=== PATIENT | female | born 1955 | race Caucasian/White ===

== ENCOUNTER 2018-06-17 14:56 | Outpatient (REF) | payer MEDICARE, BC, SELFPAY ==
[2018-06-17 20:30] LABS: Abs Immature Grans 0.01 k/cumm (0.0-0.09); Absolute Basophil Count 0.03 k/cumm (0.0-0.2); Absolute Eosinophil Count 0.06 k/cumm (0.0-0.7); Absolute Lymphocyte Count 1.79 k/cumm (1.2-3.4); Absolute Monocyte Count 0.31 k/cumm (0.11-0.7); Absolute Neutrophil Count 3.34 k/cumm (1.2-6.7); Basophils % 0.5; Eosinophils % 1.1; HCT 40.4 % (36.0-46.0); HGB 12.9 g/dL (12.0-15.5); Immature Grans % 0.2; Lymphocytes % 32.3; Mean Corp. HGB Concentration 31.9 g/dL (32.0-36.0); Mean Corpuscular Hemoglobin 28.1 pg (27.0-33.0); Mean Platelet Volume 12.6 fL (8.0-11.0); Monocytes % 5.6; Neutrophils % 60.3; Platelet Count 243 x1000/uL (130-400); RBC 4.59 m/cumm (4.00-5.20); RBC Distribution Width 14.7 % (11.7-14.6); White Blood Cell Count 5.54 k/cumm (4.4-10.8)
[2018-06-17 20:54] LABS: ALT 26 U/L (12-78); AST 19 U/L (15-37); Albumin 3.8 g/dL (3.4-5.0); Alkaline Phosphatase 103 U/L (46-116); Anion Gap 10.7 mmol/L (3-11); BUN 19 mg/dL (7-18); Bilirubin, Total 0.2 mg/dL (0.2-1.0); CO2 28.3 mmol/L (21.0-32.0); CREATININE 1.03 mg/dL (0.55-1.02); Calcium 8.9 mg/dL (8.5-10.1); Chloride 102 mmol/L (98-107); Estimated GFR 53.95 (mL/min/1.73m2); Glucose 104 mg/dL (70-100); Potassium 4.1 mmol/L (3.5-5.1); Sodium 141 mmol/L (136-145); Total Protein 7.2 g/dL (6.4-8.2)
[2018-06-18 06:02] LABS: Lipase 169 U/L (73-393)
[2018-06-19 10:54] LABS: Hepatitis C Ab w Rflx HCV PCR Negative (NEGAT)
== END 2018-06-17 15:16 ==
LOC: NCHCN 14:56
PROVIDERS: PCP Internal Medicine; Visit Provider Internal Medicine
DX: R10.9 Unspecified abdominal pain (principal); Z11.59 Encounter for screening for other viral diseases
CPT/HCPCS: 80053; 83690; 86803; 85025

== ENCOUNTER 2018-10-29 11:08 | Emergency (ER) | payer MEDICARE, BC, SELFPAY ==
--- NOTE | 2018-10-29 11:15 | ED.GENADUL_ITS ---
Discharge Plan Disposition Patient Disposition: HOME Condition: Stable Discharge Details Chief Complaint: Abd Prob Clinical Impression: Chronic abdominal pain, Bladder wall thickening, Esophageal thickening Primary Care Provider: Bal George ED Provider: Essie Jose Home Meds and New Rx's Prescriptions: Continued lisinopril-hydrochlorothiazide [Zestoretic] 1 EACH tablet 1 tab-cap PO DAILY RF: 0 aspirin 325 MG tablet 325 mg PO DAILY RF: 0 simvastatin [Zocor] 5 MG tablet 5 mg PO HS RF: 0 Daily Multiple 1 EACH tablet 1 tab-cap PO DAILY RF: 0 lorazepam 0.5 MG tablet 0.5 mg PO PRN PRNRF: 0 metoprolol succinate 25 MG tablet extended release 24 hr 25 mg PO DAILY RF: 0 meclizine [Antivert] 25 MG tablet 25 mg PO PRN PRNRF: 0 nitroglycerin [Nitrostat] 0.4 MG tablet, sublingual 1 tab Sublingual . DIRECTED PRNRF: 0 acetaminophen [Masophen] 500 MG tablet 500 mg PO Q4H PRN PRNQty: 30 RF: 0 Discharge Instructions Instructions: Chronic Pain (ED), Abdominal Pain (ED) Additional Instructions: You were found to have esophageal thickening and bladder wall thickening on your cat scan. These findings may be and are likely incidental and not related to your abdominal pain. You will receive a call from general surgery regarding a follow up appointment for endoscopy for further evaluation of your esophagus. You will also receive a call from care management or urology regarding a follow up appointment with urology for further evaluation of thickening noted in your bladder wall. Return immediately to the emergency department with any worsening or new concerning symptoms. 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 Since her cholecystectomy in 2018 who presents with worsening abdominal pain over the past 10 days. Admits to nausea but denies any fever, vomiting or diarrhea. No chest pain or shortness of breath. Blood pressure mildly hypertensive, otherwise vitals within normal limits. Afebrile. Patient appears nontoxic and in no acute distress. Patient is tearful and appears very anxious. She has significant tenderness to palpation with even light palpation otherwise her abdomen is soft without rigidity or guarding. Will place an IV, bolus IV fluids, labs, urinalysis, EKG, CT abdomen and pelvis, morphine as well as Zofran. EKG notes a rate of 79, sinus, no acute ST findings. 1330 --labs and imaging reviewed. Normal white blood cell count, electrolytes, bilirubin, troponin and lipase. Urinalysis 3-5 WBCs with trace leukocytes but appears consistent with contamination. Dr. Joyce called regarding CT and stated that patient was noted to have dilated hepatic ducts, and increased size of common bile duct, but in the setting of a normal bilirubin may not be anything acute. Patient was also noted to have wall thickness of her distal esophagus which may require further investigation with endoscopy, as well as bladder thickness. Patient states her pain is much better. Discussed CT findings with general surgery Dr. Talbot and he will evaluate CT and come and evaluate patient. 1520 --discussed with general surgery who evaluated CT and patient. There does not appear to be any acute infectious findings on the CT and no acute recommendations. Will follow up with patient in the office regarding further evaluation of incidental finding of esophagus with possible endoscopy. Patient also placed on urology and care management list to arrange for follow-up appointment for further evaluation of bladder wall thickness noted. Patient instructed to return to the ER with any concerns. Medical Records Medical records reviewed: Yes I reviewed the patient's medical records. Lab Data Lab results reviewed: Yes I reviewed the patient's lab results. Laboratory Tests Range/Units 10/29/18 10/29/18 10/29/18 11:50 11:50 12:40 WBC (4.4-10.8) k/cumm 7.27 RBC (4.00-5.20) m/cumm 4.91 Hgb (12.0-15.5) g/dL 13.8 Hct (36.0-46.0) % 42.7 MCV (80-95) fL 87.0 MCH (27.0-33.0) pg 28.1 MCHC (32.0-36.0) g/dL 32.3 RDW (11.7-14.6) % 14.9 H Plt Count (130-400) x1000/uL 234 MPV (8.0-11.0) fL 11.6 H Immature Gran % 0.0 Neutrophils % 61.1 Lymphocytes % 31.5 Monocytes % 5.5 Eosinophils % 1.2 Basophils % 0.7 Absolute Neutrophils (1.2-6.7) k/cumm 4.44 Absolute Lymphocytes (1.2-3.4) k/cumm 2.29 Absolute Monocytes (0.11-0.7) k/cumm 0.40 Absolute Eosinophils (0.0-0.7) k/cumm 0.09 Absolute Basophils (0.0-0.2) k/cumm 0.05 Sodium (136-145) mmol/L 140 Potassium (3.5-5.1) mmol/L 3.6 Chloride (98-107) mmol/L 100 Carbon Dioxide (21.0-32.0) mmol/L 29.7 Anion Gap (3-11) mmol/L 10.3 BUN (7-18) mg/dL 22 H Creatinine (0.55-1.02) mg/dL 0.99 Estimated GFR/1.73 m2 (mL/min/1.73m2) 56.47 Glucose (70-100) mg/dL 100 Calcium (8.5-10.1) mg/dL 9.2 Magnesium (1.8-2.4) mg/dL 2.2 Total Bilirubin (0.2-1.0) mg/dL 0.3 AST (15-37) U/L 21 ALT (12-78) U/L 27 Alkaline Phosphatase (46-116) U/L 106 Troponin I (0.00-0.06) ng/mL < 0.02 Total Protein (6.4-8.2) g/dL 8.3 H Albumin (3.4-5.0) g/dL 3.9 Lipase (73-393) U/L 156 Urine Color (Yellow) Yellow Urine Clarity Clear Urine pH (5-8) 7.0 Ur Specific [place] (1.005-1.025) 1.010 Urine Protein (Negative) mg/dL Negative Urine Ketones (Negative) mg/dL Negative Urine Blood (Negative) Negative Urine Nitrite (Negative) Negative Urine Bilirubin (Negative) Negative Urine Urobilinogen (Up TO 0.2) EU/dL 0.2 Ur Leukocyte Esterase (Negative) Trace H Urine RBC (0-2) Negative Urine WBC (0-5) HPF 3-5 Ur Epithelial Cells (Negative) HPF Moderate Urine Crystals (Negative) HPF Negative Urine Bacteria (Negative) HPF Rare Urine Casts (Negative) LPF Negative Urine Mucus (Negative) Negative Urine Other (Negative) Few renal Ur Culture Indicated? No/sq. contamination Urine Glucose (Negative) mg/dL Negative ECG Data Attestation: I personally reviewed and interpreted this ECG (s) as follows: Interpretation: 1207 --79. Sinus. No acute ST elevation or depression. QTc 422. QRS 82. HPI General Mode of arrival: ambulatory . Date/Time Provider Initiated Documentation: 10/29/18 11:09 . Limitations to Documentation: no limitations . Information obtained by: patient . HPI Narrative: Patient is a 63-year-old female with a history of fibromyalgia, anxiety, LA with one cardiac stent, and cholecystectomy in March 2018 who presents with chronic epigastric and right lower quadrant abdominal pain status post her cholecystectomy. Patient states she continued to have pain after her surgery and followed up with surgery Dr. Rosenthal who was told that she likely had nerve damage. Patient states this is because constant pain since then. She states over the past 10 days the pain has been more intense, sharp and pressure-like and feels like knots . She states she is also had some nausea but denies any vomiting, diarrhea, fever, urinary s ymptoms, chest pain or shortness of breath. She took some Tylenol without relief. She states her last bowel movement was today and denies any rectal bleeding. She states she has been eating less than usual over the past 2-3 days. She states her pain is currently 8/10. Related Data Home Medications Medication Instructions Recorded Confirmed Daily Multiple 1 tab-cap PO DAILY tab-cap 02/03/13 10/29/18 aspirin 325 mg PO DAILY tab-cap 02/03/13 10/29/18 lisinopril-hydrochlorothiazide 1 tab-cap PO DAILY tab-cap 02/03/13 10/29/18 [Zestoretic] simvastatin [Zocor] 5 mg PO HS tab-cap 02/03/13 10/29/18 lorazepam 0.5 mg PO PRN PRN 02/17/13 10/29/18 metoprolol succinate 25 mg PO DAILY 02/17/13 10/29/18 meclizine [Antivert] 25 mg PO PRN PRN 05/21/15 10/29/18 nitroglycerin [Nitrostat] 1 tab SUBLINGUAL . DIRECTED PRN 04/09/18 10/29/18 acetaminophen [Masophen] 500 mg PO Q4H PRN PRN #30 tablet 04/18/18 10/29/18 Previous Rx's Medication Instructions Recorded acetaminophen [Masophen] 500 mg PO Q4H PRN PRN #30 tablet 04/18/18 Allergies Allergy/AdvReac Type Severity Reaction Status Date / Time shellfish derived Allergy Severe Anaphylaxsi Unverified 10/29/18 11:21 s strawberry Allergy Severe Anaphalaxsi Unverified 10/29/18 11:21 s adhesive Allergy Intermediate Skin Rash Unverified 10/29/18 11:21 lanolin Allergy Intermediate Skin Rash Unverified 10/29/18 11:21 benzoyl peroxide Allergy Mild Rash Unverified 10/29/18 11:21 clobetasol Allergy Unknown Unverified 10/29/18 11:21 aspartame AdvReac Mild Visual Unverified 10/29/18 11:21 Disturbances nitrofurantoin AdvReac Mild Unverified 10/29/18 11:21 polymyxin B AdvReac Mild Unverified 10/29/18 11:21 triamcinolone AdvReac Mild Unverified 10/29/18 11:21 wool Allergy Severe Hives Uncoded 10/29/18 11:21 Mushrooms AdvReac Mild Nausea Uncoded 10/29/18 11:21 Review of Systems Review of Systems All systems reviewed & are unremarkable except as noted in HPI and below Constitutional Reports as per HPI, Denies chills and Denies fever(s) Eyes Denies blurry vision ENT Denies dizziness, Denies sore throat and Denies throat swelling Cardiovascular Denies chest pain and Denies dyspnea Respiratory Denies cough and Denies dyspnea Gastrointestinal Reports abdominal pain, Denies diarrhea, Reports nausea and Denies vomiting Genitourinary Denies hematuria and Denies dysuria Musculoskeletal Denies back pain and Denies numbness Integumentary/Breasts Denies lesions and Denies rash Neurologic Denies dizziness, Denies focal weakness and Denies numbness Allergic/Immunologic Denies throat swelling [facility] Medical History Fibromyalgia (Acute) Hyperlipemia (Acute) Anxiety (Chronic) Coronary artery disease (Chronic) GERD (gastroesophageal reflux disease) (Chronic) HTN (hypertension) (Chronic) Myocardial infarction (Chronic) Surgical History History of coronary artery stent placement (Chronic) Cholecystectomy (04/16/18) Social History Smoking/Tobacco Use Status: Never alcohol intake: never substance use type: does not use Exam Const General: cooperative, healthy appearing and in distress (uncomfortable in pain, holding abdomen) mild HENMT Head: normal to inspection Face and sinus: normal facial exam Eyes General: appearance normal, both eyes and all related structures EOM: EOM intact bilaterally Neck Neck: normal visual inspection and No submandibular swelling Lymphatic: no lymphadenopathy noted Chest Chest: normal inspection of the chest and no tenderness Resp Effort & Inspection: normal respiratory effort and able to speak in complete sentences Auscultation: clear to auscultation bilaterally Cardio Rate: regular rate Rhythm: regular rhythm GI Inspection: normal to inspection Palpation: soft, not firm, not rigid and tender (diffuse, worse in upper abdomen and RLQ) Auscultation: normal bowel sounds Skin General skin exam: no rashes or lesions noted Neuro General: alert, awake and oriented x3 Cognition: normal cognition Speech: speech normal Motor: muscle tone normal throughout Sensory Exam: no sensory deficits noted Extrem General: normal to inspection, full ROM and no edema Psych Appearance: grossly normal Mental Status: mental status grossly normal Speech and Movement: speech and movement normal Affect: normal affect
[2018-10-29 11:17] VITALS: BP 158/78; PULSE 82; RESP 16; TEMP 37; O2SAT 100
[2018-10-29] MEDS: Normal Saline 1,000 ML 1000 ML IV (11:55)
[2018-10-29] MEDS: Ondansetron 4 MG/2 ML VIAL IVP (11:55)
[2018-10-29 11:56] LABS: Absolute Basophil Count 0.05 k/cumm (0.0-0.2); Absolute Eosinophil Count 0.09 k/cumm (0.0-0.7); Absolute Lymphocyte Count 2.29 k/cumm (1.2-3.4); Absolute Neutrophil Count 4.44 k/cumm (1.2-6.7); Basophils % 0.7; Eosinophils % 1.2; HCT 42.7 % (36.0-46.0); HGB 13.8 g/dL (12.0-15.5); Lymphocytes % 31.5; Mean Corp. HGB Concentration 32.3 g/dL (32.0-36.0); Mean Corpuscular Hemoglobin 28.1 pg (27.0-33.0); Mean Platelet Volume 11.6 fL (8.0-11.0); Monocytes % 5.5; Neutrophils % 61.1; Platelet Count 234 x1000/uL (130-400); RBC 4.91 m/cumm (4.00-5.20); RBC Distribution Width 14.9 % (11.7-14.6); White Blood Cell Count 7.27 k/cumm (4.4-10.8)
[2018-10-29 12:13] LABS: ALT 27 U/L (12-78); AST 21 U/L (15-37); Albumin 3.9 g/dL (3.4-5.0); Alkaline Phosphatase 106 U/L (46-116); Anion Gap 10.3 mmol/L (3-11); BUN 22 mg/dL (7-18); Bilirubin, Total 0.3 mg/dL (0.2-1.0); CO2 29.7 mmol/L (21.0-32.0); CREATININE 0.99 mg/dL (0.55-1.02); Calcium 9.2 mg/dL (8.5-10.1); Chloride 100 mmol/L (98-107); Estimated GFR 56.47 (mL/min/1.73m2); Glucose 100 mg/dL (70-100); Lipase 156 U/L (73-393); Magnesium 2.2 mg/dL (1.8-2.4); Potassium 3.6 mmol/L (3.5-5.1); Sodium 140 mmol/L (136-145); Total Protein 8.3 g/dL (6.4-8.2)
[2018-10-29 12:14] LABS: Troponin I < 0.02 ng/mL (0.00-0.06)
[2018-10-29] MEDS: Omnipaque 350 MG/ML 100 ML BTL IJ (12:35)
[2018-10-29 12:51] LABS: Bilirubin Negative (Negative); Blood Negative (Negative); Clarity Clear; Glucose Negative (Negative); Ketones Negative (Negative); Leukocyte Esterase Trace (Negative); Nitrite Negative (Negative); Urobilinogen 0.2 EU/dL (Up TO 0.2)
[2018-10-29 13:05] LABS: Bacteria Rare HPF (Negative); C & S Indicated? No/Sq. Contamination; Casts Negative LPF (Negative); Crystals Negative HPF (Negative); Epithelial Cells Moderate HPF (Negative); Mucus Negative (Negative); Other Cells Few Renal (Negative); RBC Negative (0-2)
--- NOTE | 2018-10-29 13:10 | DI.CT_ITS ---
SYMPTOMS/DIAGNOSIS: DIFFUSE ABDOMINAL PAIN, WORSE EPIGASTRIC ABDOMINAL AND PELVIC CT: CT examination of the abdomen and pelvis was performed with a bolus infusion of 100 cc of Omnipaque 350. Images obtained through the lung bases are unremarkable. Note is made of a hiatal hernia. There is a question of wall thickening of the distal esophagus, endoscopy may be considered for evaluation of the distal esophagus. Spleen and pancreas are unremarkable in appearance. Liver appears normal. Slight prominence of intrahepatic and extrahepatic biliary ducts is noted with maximal common duct diameter about 11 mm; the patient is status post cholecystectomy and this is at the upper limits of normal for a post cholecystectomy patient. Adrenals and kidneys are unremarkable. Abdominal aorta is of normal diameter and no major vascular abnormality is seen. The appendix is normal. No evidence of diverticulitis. 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 There is a small fat-containing umbilical hernia and a tiny fat-containing supraumbilical ventral hernia measuring about 1 cm in diameter. No additional abdominal wall hernias seen. Note is made of a question of focal wall thickening of the urinary bladder seen inferiorly and anteriorly. The possibility of a bladder wall mass is not entirely excluded. Correlation with cystoscopy should be considered for further evaluation. CONCLUSION: 1. Wall thickening of the distal esophagus, which is nonspecific. Endoscopy may be considered if clinically indicated. 2. Borderline dilatation of biliary ducts in a patient who is status post cholecystectomy. If there is laboratory evidence of biliary obstruction, additional evaluation with MRCP may be considered. 3. Questioned focal wall thickening of urinary bladder; cystoscopy may be considered to evaluate a possible bladder wall mass.
--- NOTE | 2018-10-29 15:08 | SCONE_ITS ---
Date of service: 10/29/18 Time of Service: 15:06 Assessment and Plan (1) Abdominal pain, acute, epigastric: Start date: 10/29/18 Start time: 15:14 Current visit: Yes Status: Acute pt pain is in the epigastric region mainly tender to palpation her symptoms could be related to GERD would need upper EGD with biopsies to make a more definitive diagnosis pt is 63 has nor had a screening colonoscopy she has susannah affraid to have this done requests that we attempt to do both at the same time will arrange with the office to try to do this ct was reviewed in [facility] there is a small incisional hernia with fat in it in the epigastric region to the right of midline distal esophagus thickened poss GERD History of Present Illness Chief Complaint: abdominal pain Narrative: has been, as per patient, since her lap choel abd pain in the epigastric region presents toady with the same symptoms and a new CT done by the ED one episode of vomiting Consults Consult date: 10/29/18 Requesting physician: Essie Jose Review of Systems Constitutional Reports as per HPI and Reports body ache(s) Gastrointestinal Reports as per HPI, Reports abdominal pain and Reports vomiting [facility] Medical History Fibromyalgia (Acute) Hyperlipemia (Acute) Anxiety (Chronic) Coronary artery disease (Chronic) GERD (gastroesophageal reflux disease) (Chronic) HTN (hypertension) (Chronic) Myocardial infarction (Chronic) Surgical History History of coronary artery stent placement (Chronic) Cholecystectomy (04/16/18) Social History Smoking/Tobacco Use Status: Never alcohol intake: never substance use type: does not use Exam Const General: cooperative Orientation: alert, awake and oriented x3 GI Inspection: normal to inspection and scar Palpation: soft Percussion: normal to percussion Auscultation: normal bowel sounds Results Last Vital Signs Temp 37 C 10/29/18 11:17 Pulse 82 10/29/18 11:17 Resp 16 10/29/18 11:17 BP 158/78 H 10/29/18 11:17 Pulse Ox 100 10/29/18 11:17 Labs : 10/29/18 11:50 10/29/18 11:50 Laboratory Results - last 24 hr 10/29/18 10/29/18 10/29/18 11:50 11:50 12:40 WBC 7.27 RBC 4.91 Hgb 13.8 Hct 42.7 MCV 87.0 MCH 28.1 MCHC 32.3 RDW 14.9 H Plt Count 234 MPV 11.6 H Immature Gran % 0.0 Neutrophils % 61.1 Lymphocytes % 31.5 Monocytes % 5.5 Eosinophils % 1.2 Basophils % 0.7 Absolute Neutrophils 4.44 Absolute Lymphocytes 2.29 Absolute Monocytes 0.40 Absolute Eosinophils 0.09 Absolute Basophils 0.05 Sodium 140 Potassium 3.6 Chloride 100 Carbon Dioxide 29.7 Anion Gap 10.3 BUN 22 H Creatinine 0.99 Estimated GFR/1.73 m2 56.47 Glucose 100 Calcium 9.2 Magnesium 2.2 Total Bilirubin 0.3 AST 21 ALT 27 Alkaline Phosphatase 106 Troponin I < 0.02 Total Protein 8.3 H Albumin 3.9 Lipase 156 Urine Color Yellow Urine Clarity Clear Urine pH 7.0 Ur Specific [place] 1.010 Urine Protein Negative Urine Ketones Negative Urine Blood Negative Urine Nitrite Negative Urine Bilirubin Negative Urine Urobilinogen 0.2 Ur Leukocyte Esterase Trace H Urine RBC Negative Urine WBC 3-5 Ur Epithelial Cells Moderate Urine Crystals Negative Urine Bacteria Rare Urine Casts Negative Urine Mucus Negative Urine Other Few renal Ur Culture Indicated? No/sq. contamination Urine Glucose Negative
[2018-10-29 15:30] VITALS: BP 114/69; PULSE 89; RESP 16; TEMP 37; O2SAT 98
--- NOTE | 2018-10-30 12:24 | PDOC.ERCMPRO ---
Care Management Progress Note 10/30-Dr. Jose requested assistance with a Urology f/u for thickening of bladder. Referral faxed to urology this am.
== END 2018-10-29 15:36 | disposition home or self-care (01) ==
PROVIDERS: Emergency Provider Physician Assistant; PCP Internal Medicine
DX: R10.9 Unspecified abdominal pain (principal); N32.9 Bladder disorder, unspecified; K22.9 Disease of esophagus, unspecified; I10 Essential (primary) hypertension
CPT/HCPCS: 36415; 80053; 83690; 93005; 96361; 96374; 96375; 99252; 99282; 99285; 74177; 81003; 81015; 83735; 84484; 85025; 93010; J2405; J3490

== ENCOUNTER 2018-11-04 10:18 | Outpatient (CLI) | payer MEDICARE, BC, SELFPAY | END 2018-11-04 10:38 | PROVIDERS: PCP Internal Medicine; Visit Provider Surgery | DX: R10.13 Epigastric pain (principal); Z12.11 Encounter for screening for malignant neoplasm of colon; Z01.818 Encounter for other preprocedural examination ==

== ENCOUNTER 2018-11-06 06:02 | Day surgery (SDC) | payer MEDICARE, BC, SELFPAY ==
[2018-11-04 10:44] VITALS: BP 134/88; PULSE 75; RESP 17; TEMP 37.3; O2SAT 97
[2018-11-06 06:21] VITALS: BP 120/78; PULSE 78; RESP 16; TEMP 36.1; O2SAT 98
[2018-11-06] MEDS: Lactated Ringers 1,000 ML 80 ML IV (07:05)
--- NOTE | 2018-11-06 08:26 | BOWEL_PTH ---
PATIENT: Diana Richter LOC: [facility] U#:[id number] AGE/SX: 63/F ROOM: RE11/06/[address]: Thomas Talbot III : 1955 BED: DIS: 11/06/2018 SPEC #: [id number] RECD: 11/06/18 12:55 STATUS: ABEL REAugusto #: [id number] RUCHI: 11/06/18 08:[address]: Thomas Talbot III DEPT: Surgical Specimen RECD BY: Marline Kearney ENTERED: 11/06/18 12:55 SP TYPE: Bowel OTHR DR: Bal George Tissues: 1 - BIOPSY BOWEL Procedures: GROSS AND MICRO LEVEL 4 Comments: [id number]
--- NOTE | 2018-11-06 09:07 | W.PM.DSUDISC ---
Discharge Plan Disposition Patient Disposition: HOME Condition: Stable Discharge Details Reason For Visit: screening egd and colonoscopy Attending Provider: Thomas Talbot III Primary Care Provider: Bal George Home Meds and New Rx's Prescriptions: Continued lisinopril-hydrochlorothiazide [Zestoretic] 1 EACH tablet 1 tab-cap PO DAILY RF: 0 aspirin 325 MG tablet 325 mg PO DAILY RF: 0 simvastatin [Zocor] 5 MG tablet 5 mg PO HS RF: 0 Daily Multiple 1 EACH tablet 1 tab-cap PO DAILY RF: 0 lorazepam 0.5 MG tablet 0.5 mg PO PRN PRNRF: 0 metoprolol succinate 25 MG tablet extended release 24 hr 25 mg PO DAILY RF: 0 meclizine [Antivert] 25 MG tablet 25 mg PO PRN PRNRF: 0 nitroglycerin [Nitrostat] 0.4 MG tablet, sublingual 1 tab Sublingual . DIRECTED PRNRF: 0 acetaminophen [Masophen] 500 MG tablet 500 mg PO Q4H PRN PRNQty: 30 RF: 0 famotidine 20 mg Tablet 20 mg PO BID RF: 0 Discharge Instructions Instructions: Colonoscopy (DC) Stand Alone Forms: Colonoscopy Post Instructions, DSU Post EGD Instructions, Brielle Benito (DSU) Activity:: Activity as Tolerated Diet:: As Tolerated Discharge Orders Discharge Orders: Discharge Order (Routine); Ordered 11/06/18 Ordered By: Thomas Talbot III DS: Diagnosis Discharge Diagnosis (1) Abdominal pain, acute, epigastric: Status: Acute (2) Screen for colon cancer: Status: Acute
--- NOTE | 2018-11-06 09:13 | W.PM.ENDDOP ---
Date of service: 11/06/18 Time of Service: 09:13 Endoscopy Report DATE OF PROCEDURE: 11/06/18 PRE-OP DIAGNOSIS: screening with abd pain PROCEDURE: screening egd SURGEON: Thomas Talbot III ANESTHESIA: MAC PATHOLOGY: none sent COMPLICATIONS: None DISPOSITION: PACU INDICATIONS: abd pain FINDINGS: avm upper esophagus PROCEDURE DESCRIPTION: After informed consent was obtained the patient was take to the procedure room and placed in a supine position. Monitors were applied and a time out was done. The patients name, date of , procedure type, allergies to medications and metal in their body was reviewed. A bite block was placed and the patient was sedated. Once sedated and comfortable the gastroscope was advanced through the oropharynx which was grossly normal into the esophagus. The proximal and mid-esophagus were clear of pathology. In the distal esophagus there was no pathology noted. The scope was advanced into the stomach and through the pylorus into the 3rd portion of the duodenum. The duodenum was noted to be clear of pathology. No Biopsies were done. The scope was retracted back into the stomach and no biopsies were done. There were no ulcers. The scope was retroflexed. The cardia and fundus were noted to be normal. There was no hiatal hernia noted. The scope was retracted back into the esophagus. The Z line was regular. The GE junction was at 30 cm. The scope was removed and the patient was woken up and taken back to [facility] in stable condition. Follow up: prn
[2018-11-06 09:17] VITALS: BP 113/68; PULSE 61; RESP 22; TEMP 35.4; O2SAT 99
--- NOTE | 2018-11-06 09:21 | W.COLOREPORT ---
Date of service: 11/06/18 Time of Service: 09:21 Colonoscopy Report Date of procedure: 11/06/18 Pre-op diagnosis general: screening colonoscopy Post-op diagnosis procedure note: other Procedure: Screening colonoscopy with polyp removal sigmoid Surgeon: Thomas Talbot III Anesthesia proc note operative: MAC Pathology: other (Sigmoid polyp) Complications: None Disposition: PACU Prep: GoLYTELY Findings: Sigmoid polyp and small area of rectal discoloration possibly consistent with an AVM Procedure Description: After informed consent was obtained the patient was taken to the procedure room and placed in a left decubitous position. Monitors were applied and a time out was done. The patients name, date of , procedure, allergies to medications and metal in their body was reviewed. The patient was then sedated. Once sedated and comfortable a rectal exam was done. External exam was normal. Internal exam revealed a normal sphincter tone and no palpable masses. The scope was then introduced and retrofelexed. No internal hemorrhoids were identified. The scope was then advanced to the cecum without difficulty. The TI and appendiceal orifice were identified. The prep was adequate. The scope was then slowly retracted over 6 minutes back into the rectum. A Polyp was removed at sigmoid colon. The scope was removed and the patient was woken up and taken back to [facility] day surgery in stable condition. The patient tolerated the procedure well and there were no immediate complications. Follow up: The patient should follow up in 10 years (await pathology for decision)unless they develop changes in bowel habits or other new gastrointestinal complaints.
[2018-11-06 10:21] VITALS: BP 134/79; PULSE 67; RESP 22; TEMP 36.3; O2SAT 97
== END 2018-11-06 10:53 | disposition home or self-care (01) ==
PROVIDERS: PCP Internal Medicine; Visit Provider Surgery
PROC: (CPT 45380; principal; 2018-11-06 07:30)
DX: Z12.11 Encounter for screening for malignant neoplasm of colon (principal); K63.5 Polyp of colon; R10.13 Epigastric pain; I10 Essential (primary) hypertension; K21.9 Gastro-esophageal reflux disease without esophagitis
CPT/HCPCS: 45380; 43235; 88305; J2250

== ENCOUNTER 2018-11-14 17:29 | Outpatient (REF) | payer MEDICARE, BC, SELFPAY ==
[2018-11-14 21:03] LABS: Bilirubin Negative (Negative); Blood Negative (Negative); Clarity Clear; Glucose Negative (Negative); Ketones Negative (Negative); Leukocyte Esterase Negative (Negative); Nitrite Negative (Negative); Specific Gravity 1.015 (1.005-1.025); Urobilinogen 0.2 EU/dL (Up TO 0.2); pH 6.5 (5-8)
== END 2018-11-14 17:49 ==
LOC: NCHCN 17:29
PROVIDERS: PCP Internal Medicine; Visit Provider Internal Medicine
DX: N32.9 Bladder disorder, unspecified (principal)
CPT/HCPCS: 81003

== ENCOUNTER 2018-11-18 13:40 | Outpatient (REF) | payer MEDICARE, BC, SELFPAY ==
--- NOTE | 2018-11-18 13:30 | PAPNONF_PTH ---
PATIENT: Diana Richter LOC: [facility]#:[id number] AGE/SX: 63/F ROOM: RE11/18/[address]: Bal George : 1955 BED: DIS: 11/18/2018 SPEC #: [id number] RECD: 11/18/18 17:59 STATUS: ABEL REAugusto #: [id number] RUCHI: 11/18/18 13:[address]: Bal George DEPT: [facility] Cytology RECD BY: Marline Kearney Tissues: 1 - BODY FLUID CYTO(SPUTUM/URINE)[facility] Procedures: BODY FLUID CYTO(URINE/SPUTUM) Comments: [id number] (TOTAL VOLUME = 90 ml's) (45 ml's URINE & 45 ml's CYTOLYT ADDED IN 2 CONTAINERS)
== END 2018-11-18 14:00 ==
LOC: NCHCN 13:40
PROVIDERS: PCP Internal Medicine; Visit Provider Internal Medicine
DX: N32.89 Other specified disorders of bladder (principal)
CPT/HCPCS: 88104

== ENCOUNTER 2019-02-09 11:53 | Observation (INO) | payer MEDICARE, BC, SELFPAY ==
[2019-02-09] VITALS (32 sets, daily range): BP systolic 111–149; BP diastolic 40–81; PULSE 70–98; RESP 11–50; TEMP 35.7–37.1; O2SAT 94–100
--- NOTE | 2019-02-09 11:59 | DI.RAD_ITS ---
SYMPTOMS/DIAGNOSIS: SHORTNESS OF BREATH X 2 WEEKS, WORSE THIS MORNING PA AND LATERAL CHEST: Comparison is made with March,. The cardiac and mediastinal contours have a normal appearance. The lungs appear clear. No infiltrate or effusion is seen. Degenerative changes and kyphosis are again noted in the thoracic spine. IMPRESSION: No acute abnormality.
--- NOTE | 2019-02-09 12:09 | ED.GENADUL_ITS ---
Discharge Plan Discharge Details Chief Complaint: SOB Primary Care Provider: Bal George ED Provider: Juice Burch Home Meds and New Rx's Prescriptions: No Action lisinopril-hydrochlorothiazide [Zestoretic] 1 EACH tablet 1 tab-cap PO DAILY RF: 0 aspirin 325 MG tablet 325 mg PO DAILY RF: 0 simvastatin [Zocor] 5 MG tablet 5 mg PO HS RF: 0 Daily Multiple 1 EACH tablet 1 tab-cap PO DAILY RF: 0 lorazepam 0.5 MG tablet 0.5 mg PO PRN PRNRF: 0 metoprolol succinate 25 MG tablet extended release 24 hr 25 mg PO DAILY RF: 0 meclizine [Antivert] 25 MG tablet 25 mg PO PRN PRNRF: 0 nitroglycerin [Nitrostat] 0.4 MG tablet, sublingual 1 tab Sublingual . DIRECTED PRNRF: 0 acetaminophen [Masophen] 500 MG tablet 500 mg PO Q4H PRN PRNQty: 30 RF: 0 Medical Decision Making 63-year-old female some chest discomfort and shortness of breath 3 weeks fatigue and lack of energy ACS and PE work-up unremarkable emergency department due to risk factors like to bring her in for telemetry monitoring and ACS work-up. ECG Data Attestation: I personally reviewed and interpreted this ECG (s) as follows: (Regular sinus rhythm heart rate of 90 normal axis normal intervals no ectopy no STEMI) HPI 63-year-old female past medical history of GERD coronary artery disease with acute myocardial infarction and stent placement ,hyperlipidemia hypertension anxiety presents with approximately 1 month of constant fatigue mild constant shortness of breath feeling, & is not having any energy .patient feels that the symptoms are similar to her last heart attack. No loss of consciousness no fever chills cough congestion skin changes rash or other new complaints. General Date/Time Provider Initiated Documentation: 02/09/19 11:59 . Related Data Home Medications Medication Instructions Recorded Confirmed Daily Multiple 1 tab-cap PO DAILY tab-cap 02/03/13 11/06/18 aspirin 325 mg PO DAILY tab-cap 02/03/13 11/06/18 lisinopril-hydrochlorothiazide 1 tab-cap PO DAILY tab-cap 02/03/13 11/06/18 [Zestoretic] simvastatin [Zocor] 5 mg PO HS tab-cap 02/03/13 11/06/18 lorazepam 0.5 mg PO PRN PRN 02/17/13 11/06/18 metoprolol succinate 25 mg PO DAILY 02/17/13 11/06/18 meclizine [Antivert] 25 mg PO PRN PRN 05/21/15 11/06/18 nitroglycerin [Nitrostat] 1 tab SUBLINGUAL . DIRECTED PRN 04/09/18 11/06/18 acetaminophen [Masophen] 500 mg PO Q4H PRN PRN #30 tablet 04/18/18 11/06/18 Previous Rx's Medication Instructions Recorded acetaminophen [Masophen] 500 mg PO Q4H PRN PRN #30 tablet 04/18/18 Allergies Allergy/AdvReac Type Severity Reaction Status Date / Time shellfish derived Allergy Severe Anaphylaxsi Verified 02/09/19 12:15 s strawberry Allergy Severe Anaphalaxsi Verified 02/09/19 12:15 s adhesive Allergy Intermediate Skin Rash Verified 02/09/19 12:15 lanolin Allergy Intermediate Skin Rash Verified 02/09/19 12:15 benzoyl peroxide Allergy Mild Rash Verified 02/09/19 12:15 clobetasol Allergy Unknown Verified 02/09/19 12:15 aspartame AdvReac Mild Visual Verified 02/09/19 12:15 Disturbances nitrofurantoin AdvReac Mild Verified 02/09/19 12:15 polymyxin B AdvReac Mild Verified 02/09/19 12:15 triamcinolone AdvReac Mild Verified 02/09/19 12:15 wool Allergy Severe Hives Uncoded 02/09/19 12:15 Mushrooms AdvReac Mild Nausea Uncoded 02/09/19 12:15 General ILIA: 3 Review of Systems Review of Systems All systems reviewed & are unremarkable except as noted in HPI and below PFSH Medical History Fibromyalgia (Acute) Hyperlipemia (Acute) Anxiety (Chronic) Coronary artery disease (Chronic) GERD (gastroesophageal reflux disease) (Chronic) HTN (hypertension) (Chronic) Myocardial infarction (Chronic) Surgical History H/O colonoscopy (Acute 11/06/18) History of esophagogastroduodenoscopy (EGD) (Acute 11/06/18) History of coronary artery stent placement (Chronic) Cholecystectomy (04/16/18) Social History Smoking/Tobacco Use Status: Never Alcohol Intake: never Drug use: Never Substance use type: does not use Do you feel safe in your relationship?: Yes Exam Narrative Exam Narrative: Pulse oximetry reviewed by me and is normal [] Constitutional: Pt is in no acute distress. she is well appearing. she oriented to person, place, and time. Eyes: conjunctivae are normal. Pupils are equal, round, and reactive to light. No scleral icterus. extraocular muscles are intact Ears/Nose/Mouth/Throat: mucus membranes are moist. Musculoskeletal: neck is supple. normal range of motion in all extremities. Cardiovascular: Normal rate and rhythm. No lower extremity edema [regular rate] Respiratory: effort is normal . pt exhibits no stridor or respiratory distress. Lungs clear to auscultation BiLAP [] GastrointestinaI: abdomen soft, +BS, nontender, -rebound, -guarding. Neurological: alert and oriented to person, place, and time. he has normal strength, no tremor. Skin: Skin is warm and dry. he is not diaphoretic. Distal perfusion in tact, warm extremities, cap refill ? 2 seconds. Trace lower extremity edema Hem/Lymph/Imm: No cervical LAD, no goiter, no conjunctival pallor Psych: normal mood and affect. behavior is normal Triage and nurse notes reviewed.[]
[2019-02-09 12:30] LABS: Abs Immature Grans 0.01 k/cumm (0.0-0.09); Absolute Basophil Count 0.03 k/cumm (0.0-0.2); Absolute Eosinophil Count 0.18 k/cumm (0.0-0.7); Absolute Lymphocyte Count 1.66 k/cumm (1.2-3.4); Absolute Monocyte Count 0.37 k/cumm (0.11-0.7); Absolute Neutrophil Count 4.01 k/cumm (1.2-6.7); Basophils % 0.5; Eosinophils % 2.9; HGB 13.5 g/dL (12.0-15.5); Immature Grans % 0.2; Lymphocytes % 26.5; Mean Corp. HGB Concentration 32.9 g/dL (32.0-36.0); Mean Corpuscular Hemoglobin 28.7 pg (27.0-33.0); Mean Platelet Volume 11.3 fL (8.0-11.0); Monocytes % 5.9; Platelet Count 213 x1000/uL (130-400); RBC 4.71 m/cumm (4.00-5.20); RBC Distribution Width 14.9 % (11.7-14.6); White Blood Cell Count 6.26 k/cumm (4.4-10.8)
[2019-02-09 12:46] LABS: PTT Activated 25.5 sec (21.0-31.4); Prothrombin Time 9.7 sec (9.3-11.0)
[2019-02-09 12:48] LABS: ALT 30 U/L (12-78); AST 22 U/L (15-37); Albumin 3.9 g/dL (3.4-5.0); Alkaline Phosphatase 100 U/L (46-116); BUN 20 mg/dL (7-18); Bilirubin, Total 0.3 mg/dL (0.2-1.0); CREATININE 0.96 mg/dL (0.55-1.02); Calcium 9.4 mg/dL (8.5-10.1); Chloride 99 mmol/L (98-107); Estimated GFR 58.51 (mL/min/1.73m2); Glucose 102 mg/dL (70-100); Magnesium 2.3 mg/dL (1.8-2.4); Potassium 3.7 mmol/L (3.5-5.1); Sodium 139 mmol/L (136-145); Total Protein 8.2 g/dL (6.4-8.2)
[2019-02-09 12:50] LABS: Troponin I < 0.02 ng/mL (0.00-0.06)
[2019-02-09 12:51] LABS: ALT 30 U/L (12-78); AST 21 U/L (15-37); Alkaline Phosphatase 96 U/L (46-116); Bilirubin, Direct 0.07 mg/dL (0.00-0.20); Bilirubin, Total 0.3 mg/dL (0.2-1.0); NT-proBNP 181 pg/mL; Total Protein 8.2 g/dL (6.4-8.2)
[2019-02-09 12:59] LABS: D-Dimer 483 ng/mlFEU (<500)
[2019-02-09 13:21] LABS: Bilirubin Negative (Negative); Blood Negative (Negative); Clarity Clear; Glucose Negative (Negative); Ketones Negative (Negative); Leukocyte Esterase Negative (Negative); Nitrite Negative (Negative); Urobilinogen 0.2 EU/dL (Up TO 0.2)
[2019-02-09 14:29] LABS: Troponin I < 0.02 ng/mL (0.00-0.06)
--- NOTE | 2019-02-09 18:09 | W.PM.HP.N ---
Date of service: 02/09/19 Time of Service: 18:10 Assessment and Plan (1) History of myocardial infarction: Current visit: Yes Status: Chronic Atypical story for ACS - however given her history we will plan on cycling cardiac biomarkers. She was also admitted approximately 1 year ago for complaints of chest discomfort, with plans at that time for obtaining an outpatient stress tests. According to the patient this did not occur as she was reassured by her waste treatment operator that her symptoms were unlikely to be cardiac in origin. ECG relayed as negative for ischemia, unfortunately official copy is not available for review at this time. Both sets of troponin obtained in the ED remain negative, with plans for trending over the course of patient's hospitalization. We will continue home medication regimen with daily aspirin, beta-kiko, statin, and prn NTG. Monitor on telemetry overnight. Also discussed with Mrs. Richter options going forward, and based on this discussion she is opting to obtain a nuclear stress test which will be ordered for tomorrow pending cardiology availability. (2) DVT prophylaxis: Current visit: Yes Status: Acute SC Lovenox. History of Present Illness Chief Complaint: Fatigue Narrative: 63-year-old woman with a past medical history significant for CAD, being admitted from [facility] Emergency Department on 02/09 in to rule out for acute coronary syndrome. Mrs. Richter has a Past Medical History Significant for CAD s/p Stent to her mid RCA in 2010, HTN, dyslipidemia, depression, anxiety, and obesity. She presented to the ED any complaining of a 2-3-week history of fatigue, accompanied by a subjective sensation of being unable to 'catch her breath'. She specifically denies dyspnea or SAMSON, and reports no CP, diaphoresis, or upper extremity discomfort. She states that her symptoms at the time of her STEMI involved chest discomfort, b/l upper extremity discomfort, dyspnea, and diffuse diaphoresis. The patient does report however that 2 days prior to the onset of her cardiac event, she experienced a similar onset of symptoms that included fatigue and the subjective inability to catch her breath. She was concerned enough that she sought care in the ED as a result, but is now questioning whether or not her symptoms may be related to her underlying anxiety. Work-up in the ED was significant for an essentially normal CBC and an unremarkable CMP, with an undetectable troponin, normal BNP, and a negative CXR. Even her history she was referred for admission for further evaluation and treatment. Review of Systems Review of Systems All systems reviewed & are unremarkable except as noted in HPI and below PFSH Medical History History of myocardial infarction (Chronic 02/03/13) Fibromyalgia (Chronic) Retinal vein occlusion of left eye (Chronic) Anxiety disorder (Chronic) Essential hypertension (Chronic) Hyperlipidemia (Chronic) Coronary artery disease (Chronic) Fibromyalgia (Acute) Hyperlipemia (Acute) Anxiety (Chronic) Coronary artery disease (Chronic) GERD (gastroesophageal reflux disease) (Chronic) HTN (hypertension) (Chronic) Myocardial infarction (Chronic) Surgical History H/O colonoscopy (Acute 11/06/18) History of esophagogastroduodenoscopy (EGD) (Acute 11/06/18) History of coronary artery stent placement (Chronic) Cholecystectomy (04/16/18) Social History Smoking/Tobacco Use Status: Never Alcohol Intake: never Drug use: Never Substance use type: does not use Do you feel safe in your relationship?: Yes Meds Home Medications Medication Instructions Recorded Confirmed Type Daily Multiple 1 tab-cap PO DAILY tab-cap 02/03/13 02/09/19 History aspirin 325 mg PO DAILY tab-cap 02/03/13 02/09/19 History lisinopril-hydrochlorothiazide 1 tab-cap PO DAILY tab-cap 02/03/13 02/09/19 History [Zestoretic] simvastatin [Zocor] 5 mg PO HS tab-cap 02/03/13 02/09/19 History lorazepam 0.5 mg PO PRN PRN 02/17/13 02/09/19 History metoprolol succinate 25 mg PO DAILY 02/17/13 02/09/19 History meclizine [Antivert] 25 mg PO PRN PRN 05/21/15 02/09/19 History nitroglycerin [Nitrostat] 1 tab SUBLINGUAL . DIRECTED PRN 04/09/18 02/09/19 History acetaminophen [Masophen] 500 mg PO Q4H PRN PRN #30 tablet 04/18/18 02/09/19 Rx Allergies Allergy/AdvReac Type Severity Reaction Status Date / Time shellfish derived Allergy Severe Anaphylaxsi Verified 02/09/19 12:15 s strawberry Allergy Severe Anaphalaxsi Verified 02/09/19 12:15 s adhesive Allergy Intermediate Skin Rash Verified 02/09/19 12:15 lanolin Allergy Intermediate Skin Rash Verified 02/09/19 12:15 benzoyl peroxide Allergy Mild Rash Verified 02/09/19 12:15 clobetasol Allergy Unknown Verified 02/09/19 12:15 aspartame AdvReac Mild Visual Verified 02/09/19 12:15 Disturbances nitrofurantoin AdvReac Mild Verified 02/09/19 12:15 polymyxin B AdvReac Mild Verified 02/09/19 12:15 triamcinolone AdvReac Mild Verified 02/09/19 12:15 wool Allergy Severe Hives Uncoded 02/09/19 12:15 Mushrooms AdvReac Mild Nausea Uncoded 02/09/19 12:15 Exam Narrative Exam Narrative: General: Patient appears comfortable, AAOX3, NAD Neck: Supple CV: Regular, nontachycardic, S1S2, No rubs, murmurs, or gallops. Pulmonary: Clear to auscultation bilaterally, no crackles, wheezing, or rhonchi Abdomen: + Bowel Sounds, soft, nontender, nondistended Vascular: No lower extremity edema Neurologic: CN II-XII grossly intact. No focal deficits. Psych: Normal mood and affect. Results Labs : 02/09/19 12:20 02/09/19 12:20 Laboratory Results - last 24 hr 02/09/19 02/09/19 02/09/19 12:20 12:20 12:20 WBC RBC Hgb Hct MCV MCH MCHC RDW Plt Count MPV Immature Gran % Neutrophils % Lymphocytes % Monocytes % Eosinophils % Basophils % Absolute Neutrophils Absolute Lymphocytes Absolute Monocytes Absolute Eosinophils Absolute Basophils PT 9.7 INR 1.0 APTT 25.5 D-Dimer 483 Sodium 139 Potassium 3.7 Chloride 99 Carbon Dioxide 28.0 Anion Gap 12.0 H BUN 20 H Creatinine 0.96 Estimated GFR/1.73 m2 58.51 Glucose 102 H Calcium 9.4 Magnesium 2.3 Total Bilirubin 0.3 0.3 Conjugated Bilirubin 0.07 AST 21 22 ALT 30 30 Alkaline Phosphatase 96 100 Troponin I < 0.02 NT-Pro-B Natriuret Pep 181 Total Protein 8.2 8.2 Albumin 4.0 3.9 Urine Color Urine Clarity Urine pH Ur Specific [place] Urine Protein Urine Ketones Urine Blood Urine Nitrite Urine Bilirubin Urine Urobilinogen Ur Leukocyte Esterase Urine Glucose 02/09/19 02/09/19 02/09/19 12:20 13:00 14:00 WBC 6.26 RBC 4.71 Hgb 13.5 Hct 41.0 MCV 87.0 MCH 28.7 MCHC 32.9 RDW 14.9 H Plt Count 213 MPV 11.3 H Immature Gran % 0.2 Neutrophils % 64.0 Lymphocytes % 26.5 Monocytes % 5.9 Eosinophils % 2.9 Basophils % 0.5 Absolute Neutrophils 4.01 Absolute Lymphocytes 1.66 Absolute Monocytes 0.37 Absolute Eosinophils 0.18 Absolute Basophils 0.03 PT INR APTT D-Dimer Sodium Potassium Chloride Carbon Dioxide Anion Gap BUN Creatinine Estimated GFR/1.73 m2 Glucose Calcium Magnesium Total Bilirubin Conjugated Bilirubin AST ALT Alkaline Phosphatase Troponin I < 0.02 NT-Pro-B Natriuret Pep Total Protein Albumin Urine Color Yellow Urine Clarity Clear Urine pH 7.0 Ur Specific [place] 1.010 Urine Protein Negative Urine Ketones Negative Urine Blood Negative Urine Nitrite Negative Urine Bilirubin Negative Urine Urobilinogen 0.2 Ur Leukocyte Esterase Negative Urine Glucose Negative Last Vital Signs Temp 36.8 C 02/09/19 15:27 Pulse 77 02/09/19 15:27 Resp 23 02/09/19 15:27 BP 123/66 02/09/19 15:27 Pulse Ox 97 02/09/19 15:27
[2019-02-09 18:58] LABS: Troponin I < 0.02 ng/mL (0.00-0.06)
[2019-02-09] MEDS: LORazepam 0.5 MG TAB PO (19:41)
[2019-02-09] MEDS: Simvastatin 10 MG TAB 5 MG PO (19:42)
[2019-02-09] MEDS: Meclizine 25 MG TAB PO (22:32)
[2019-02-10] VITALS (7 sets, daily range): BP systolic 100–103; BP diastolic 65–70; PULSE 64–98; RESP 18; TEMP 36.3–37; O2SAT 96–98
[2019-02-10 07:07] LABS: Abs Immature Grans 0.01 k/cumm (0.0-0.09); Absolute Basophil Count 0.04 k/cumm (0.0-0.2); Absolute Eosinophil Count 0.18 k/cumm (0.0-0.7); Absolute Lymphocyte Count 2.05 k/cumm (1.2-3.4); Absolute Monocyte Count 0.38 k/cumm (0.11-0.7); Absolute Neutrophil Count 3.89 k/cumm (1.2-6.7); Basophils % 0.6; Eosinophils % 2.7; HCT 38.8 % (36.0-46.0); HGB 12.6 g/dL (12.0-15.5); Immature Grans % 0.2; Lymphocytes % 31.3; Mean Corp. HGB Concentration 32.5 g/dL (32.0-36.0); Mean Corpuscular Hemoglobin 28.4 pg (27.0-33.0); Mean Corpuscular Volume 87.4 fL (80-95); Mean Platelet Volume 11.5 fL (8.0-11.0); Monocytes % 5.8; Neutrophils % 59.4; Platelet Count 215 x1000/uL (130-400); RBC 4.44 m/cumm (4.00-5.20); White Blood Cell Count 6.55 k/cumm (4.4-10.8)
[2019-02-10 07:23] LABS: Anion Gap 8.9 mmol/L (3-11); BUN 18 mg/dL (7-18); CO2 27.1 mmol/L (21.0-32.0); CREATININE 0.91 mg/dL (0.55-1.02); Chloride 104 mmol/L (98-107); Glucose 90 mg/dL (70-100); Magnesium 2.2 mg/dL (1.8-2.4); Potassium 3.5 mmol/L (3.5-5.1); Sodium 140 mmol/L (136-145); Troponin I < 0.02 ng/mL (0.00-0.06)
--- NOTE | 2019-02-10 07:58 | PDOC.CMIN ---
- If Service Date Differs Date of service: 02/10/19 Time of Service: 07:58 Care Management Initial Assess REASON FOR HOSPITALIZATION:: Chest Pain PAST MEDICAL HISTORY/PAST SURGICAL HISTORY:: History of myocardial infarction (Chronic 02/03/13). Fibromyalgia (Chronic). Retinal vein occlusion of left eye (Chronic). Anxiety disorder (Chronic). Essential hypertension (Chronic). Hyperlipidemia (Chronic). Coronary artery disease (Chronic). Fibromyalgia (Acute). Hyperlipemia (Acute). Anxiety (Chronic). Coronary artery disease (Chronic). GERD (gastroesophageal reflux disease) (Chronic). HTN (hypertension) (Chronic). Myocardial infarction (Chronic). H/O colonoscopy (Acute 11/06/18). History of esophagogastroduodenoscopy (EGD) (Acute 11/06/18). History of coronary artery stent placement (Chronic). Cholecystectomy (04/16/18) PREVIOUS FUNCTIONAL STATUS/SOCIAL/FAMILY SUPPORTS:: Diana resides alone in [facility]. She has two sons whom do not reside locally, though she reports that they are very supportive. Diana is independent in the community with ADL's, and utilizes RCT or a taxi for transportation. CURRENT FUNCTIONAL STATUS:: Currently Diana is sitting up in her chair eating breakfast when this advertising copywriter visits. She reports that she is being discharged home today and will need assistance with taxi transport. ADVANCE DIRECTIVES:: Living will on file. EMIR - Tony Richter and/or Shen Richter agents Has patient been provided with information about the portal?: Yes Did the patient sign up for the portal?: No CODE STATUS:: Full Code INSURANCE COVERAGE / FINANCIAL ISSUES:: MCR, BCBS CURRENT HOME/COMMUNITY SERVICES/EQUIPMENT:: Currently Diana has no services or medical equipment in the community PRIMARY CARE PHYSICIAN:: Dr. George POTENTIAL DISCHARGE NEEDS:: F/U appointment with PCP PATIENT/FAMILY EDUCATION NEEDS:: Review DC instructions, any limitations, and ongoing DC planning discussion. Discuss 'Ask Me Three' ANTICIPATED BARRIERS TO DISCHARGE:: None identified at this time TRANSPORTATION:: Via town taxi PLAN:: Diana will transport home today with no services. She will F/U with PCP and plan of care as prescribed. has arranged for a 1330 taxi transport though town [place] per Pt request. ESHA notified Ayaka, Corporate Compliance Officer, of transport time.
--- NOTE | 2019-02-10 08:08 | INITIAL_ITS ---
- If Service Date Differs Date of service: 02/10/19 Time of Service: 07:58 Care Management Initial Assess REASON FOR HOSPITALIZATION:: Chest Pain PAST MEDICAL HISTORY/PAST SURGICAL HISTORY:: History of myocardial infarction (Chronic 02/03/13). Fibromyalgia (Chronic). Retinal vein occlusion of left eye (Chronic). Anxiety disorder (Chronic). Essential hypertension (Chronic). Hyperlipidemia (Chronic). Coronary artery disease (Chronic). Fibromyalgia ( Acute). Hyperlipemia (Acute). Anxiety (Chronic). Coronary artery disease (Chronic). GERD (gastroesophageal reflux disease) (Chronic). HTN (hypertension) (Chronic). Myocardial infarction (Chronic). H/O colonoscopy (Acute 11/06/18). History of esophagogastroduodenoscopy (EGD) (Acute 11/06/18). History of coronary artery stent placement (Chronic). Cholecystectomy (04/16/18) PREVIOUS FUNCTIONAL STATUS/SOCIAL/FAMILY SUPPORTS:: Diana resides alone in [facility]. She has two sons whom do not reside locally, though she reports that they are very supportive. Diana is independent in the community with ADL's, and utilizes [employer] or a taxi for transportation. CURRENT FUNCTIONAL STATUS:: Currently Diana is sitting up in her chair eating breakfast when this documentation writer visits. She reports that she is being discharged home today and will need assistance with taxi transport. ADVANCE DIRECTIVES:: Living will on file. EMIR - Tony Richter and/or Shen Richter agents Has patient been provided with information about the portal?: Yes Did the patient sign up for the portal?: No CODE STATUS:: Full Code INSURANCE COVERAGE / FINANCIAL ISSUES:: MCR, BCBS CURRENT HOME/COMMUNITY SERVICES/EQUIPMENT:: Currently Diana has no services or medical equipment in the community PRIMARY CARE PHYSICIAN:: Dr. George POTENTIAL DISCHARGE NEEDS:: F/U appointment with PCP PATIENT/FAMILY EDUCATION NEEDS:: Review DC instructions, any limitations, and ongoing DC planning discussion. Discuss 'Ask Me Three' ANTICIPATED BARRIERS TO DISCHARGE:: None identified at this time TRANSPORTATION:: Via town taxi PLAN:: Diana will transport home today with no services. She will F/U with PCP and plan of care as prescribed. has arranged for a 1330 taxi transport though town [place] [employer] per Pt request. ESHA notified Ayaka, [place], of transport time.
[2019-02-10] MEDS: Metoprolol CR 25 MG TABCR PO (09:35)
[2019-02-10] MEDS: Lisinopril 10 MG TAB 20 MG PO (09:35)
[2019-02-10] MEDS: hydroCHLOROthiazide 12.5 MG TAB PO (09:35)
[2019-02-10] MEDS: Aspirin 325 MG TAB PO (09:35)
[2019-02-10] MEDS: LORazepam 0.5 MG TAB PO (09:35)
[2019-02-10] MEDS: Multivitamin w/Minerals TAB 1 TAB PO (09:35)
--- NOTE | 2019-02-10 11:46 | W.PM.DS.N ---
Date of service: 02/10/19 Time of Service: 11:47 DS: Diagnosis Discharge Diagnosis (1) History of myocardial infarction: Status: Chronic (2) Fatigue: Status: Acute Discharge Plan Disposition Patient Disposition: HOME Condition: Stable Discharge Details Reason For Visit: CHEST PAIN Admit Date/Time: 02/09/19 17:05 Admit Provider: Sebastien Palmer Attending Provider: Sebastien Palmer Primary Care Provider: Bal George Hospital Course Hospital Course: Chief Complaint: Fatigue HPI: 63-year-old woman with a past medical history significant for CAD, admitted from [facility] Emergency Department on 02/09 with complaints of fatigue, to rule out for acute coronary syndrome. Mrs. Richter has a Past Medical History Significant for CAD s/p Stent to her mid RCA in 2010, HTN, Dyslipidemia, Depression, Anxiety, and Obesity. She presented to the ED complaining of a 2-3-week history of fatigue, accompanied by a subjective sensation of being unable to 'catch her breath'. She specifically denies dyspnea or SAMSON, and reports no CP, diaphoresis, or upper extremity discomfort. She states that her symptoms at the time of her STEMI involved chest pain, b/l upper extremity discomfort, dyspnea, and diffuse diaphoresis. The patient does report however that 2 days prior to the onset of her cardiac event in 2010, she experienced a similar onset of symptoms that included fatigue and the subjective inability to catch her breath. She was concerned enough that she sought care in the ED as a result, but also questioned whether or not her symptoms may be related to her underlying anxiety. Work-up in the ED was significant for an essentially normal CBC and an unremarkable CMP, with an undetectable troponin, normal BNP, and a negative CXR. Her ECG showed evidence of an inferior infarct with QWaves in III & AVF (Prior STEMI in RCA territory), which appeared uncahnged from her prior tracings. Even her history she was referred for admission for further evaluation and treatment. Following admission Mrs. Richter's Troponin's remained undetectable with serial checks, and telemetry monitoring was uneventful. Plan had been for a Nuclear Stress Test today, but due to lack of cardiology availability this test cannot be obtained today. Plan will be for discharge with scheduled outpatient stress testing prior to her discharge, and follow-up with her primary care provider. Of note, Mrs. Richter continues to show a remarkable amount of anxiety while hospitalized. Home Meds and New Rx's Prescriptions: Continued lisinopril-hydrochlorothiazide [Zestoretic] 1 EACH tablet 1 tab-cap PO DAILY RF: 0 aspirin 325 MG tablet 325 mg PO DAILY RF: 0 simvastatin [Zocor] 5 MG tablet 5 mg PO HS RF: 0 Daily Multiple 1 EACH tablet 1 tab-cap PO DAILY RF: 0 lorazepam 0.5 MG tablet 0.5 mg PO PRN PRNRF: 0 metoprolol succinate 25 MG tablet extended release 24 hr 25 mg PO DAILY RF: 0 meclizine [Antivert] 25 MG tablet 25 mg PO PRN PRNRF: 0 nitroglycerin [Nitrostat] 0.4 MG tablet, sublingual 1 tab Sublingual . DIRECTED PRNRF: 0 acetaminophen [Masophen] 500 MG tablet 500 mg PO Q4H PRN PRNQty: 30 RF: 0 Discharge Instructions Stand Alone Forms: Nursing Discharge Form Activity:: No Strenuous Activity Equipment/Supplies:: No Equipment Needed Diet:: As Tolerated Discharge Orders Discharge Orders: Discharge Order (Routine); Ordered 02/10/19 Ordered By: Sebastien Palmer Other Ambulatory Orders: Nuclear Medicine Stress Test (Outpt) (ONCE) Timeframe: [id number] Location: Determined by Patient Ordered By: Sebastien Palmer DS: Data Vitals/I&O Vitals and I&O: Vital Signs Temperature 36.8 C 02/10/19 07:16 Temperature Source Tympanic 02/10/19 07:16 Pulse 98 H 02/10/19 08:10 Pulse Rhythm Regular 02/09/19 19:30 Pulse 72 02/09/19 14:40 Respiratory Rate 18 02/10/19 07:16 Respiratory Effort Non-Labored 02/10/19 07:39 Respiratory Depth Normal 02/10/19 07:39 Respiratory Pattern Normal 02/10/19 07:39 Blood Pressure 100/66 02/10/19 07:16 Blood Pressure Mean 69 02/09/19 14:31 Blood Pressure Position Sitting 02/09/19 11:57 Pulse Oximetry 96 02/10/19 10:10 Oxygen Delivery Method Room Air 02/10/19 10:10 Oxygen Flow Rate 0 02/10/19 10:10 Pain Level 6 02/09/19 12:58 Comment 05/13/19 15:27 Intake & Output 02/09/19 02/09/19 02/10/19 11:59 23:59 11:59 Intake Total 240 / 240 Output Total 1150 / 1150 Balance 240 / 240 -1150 / -1150 Weight 99.11 kg 97.3 kg Intake: Oral 240 / 240 Output: Urine 1150 / 1150 Other: Urine Color Yellow Urine Appearance Clear Clear Urine Odor Normal Voiding Methods Toilet Toilet Completed studies during hospitalization [Text1]: Exam(s) 02/09/2019 a RAD:XR chest 2V PA & lateral SYMPTOMS/DIAGNOSIS: SHORTNESS OF BREATH X 2 WEEKS, WORSE THIS MORNING PA AND LATERAL CHEST: Comparison is made with March,. The cardiac and mediastinal contours have a normal appearance. The lungs appear clear. No infiltrate or effusion is seen. Degenerative changes and kyphosis are again noted in the thoracic spine. IMPRESSION: No acute abnormality. Labs on day of discharge: Labs from last 24 hours 02/10/19 02/10/19 02/09/19 06:40 06:30 18:10 WBC 6.55 RBC 4.44 Hgb 12.6 Hct 38.8 MCV 87.4 MCH 28.4 MCHC 32.5 RDW 15.0 H Plt Count 215 MPV 11.5 H Immature Gran % 0.2 Neutrophils % 59.4 Lymphocytes % 31.3 Monocytes % 5.8 Eosinophils % 2.7 Basophils % 0.6 Absolute Neutrophils 3.89 Absolute Lymphocytes 2.05 Absolute Monocytes 0.38 Absolute Eosinophils 0.18 Absolute Basophils 0.04 PT INR APTT D-Dimer Sodium 140 Potassium 3.5 Chloride 104 Carbon Dioxide 27.1 Anion Gap 8.9 BUN 18 Creatinine 0.91 Estimated GFR/1.73 m2 >= 60.00 Glucose 90 Calcium 9.0 Magnesium 2.2 Total Bilirubin Conjugated Bilirubin AST ALT Alkaline Phosphatase Troponin I < 0.02 < 0.02 NT-Pro-B Natriuret Pep Total Protein Albumin Urine Color Urine Clarity Urine pH Ur Specific Mason Urine Protein Urine Ketones Urine Blood Urine Nitrite Urine Bilirubin Urine Urobilinogen Ur Leukocyte Esterase Urine Glucose 02/09/19 02/09/19 02/09/19 14:00 13:00 12:20 WBC 6.26 RBC 4.71 Hgb 13.5 Hct 41.0 MCV 87.0 MCH 28.7 MCHC 32.9 RDW 14.9 H Plt Count 213 MPV 11.3 H Immature Gran % 0.2 Neutrophils % 64.0 Lymphocytes % 26.5 Monocytes % 5.9 Eosinophils % 2.9 Basophils % 0.5 Absolute Neutrophils 4.01 Absolute Lymphocytes 1.66 Absolute Monocytes 0.37 Absolute Eosinophils 0.18 Absolute Basophils 0.03 PT INR APTT D-Dimer Sodium Potassium Chloride Carbon Dioxide Anion Gap BUN Creatinine Estimated GFR/1.73 m2 Glucose Calcium Magnesium Total Bilirubin Conjugated Bilirubin AST ALT Alkaline Phosphatase Troponin I < 0.02 NT-Pro-B Natriuret Pep Total Protein Albumin Urine Color Yellow Urine Clarity Clear Urine pH 7.0 Ur Specific Mason 1.010 Urine Protein Negative Urine Ketones Negative Urine Blood Negative Urine Nitrite Negative Urine Bilirubin Negative Urine Urobilinogen 0.2 Ur Leukocyte Esterase Negative Urine Glucose Negative 02/09/19 02/09/19 02/09/19 12:20 12:20 12:20 WBC RBC Hgb Hct MCV MCH MCHC RDW Plt Count MPV Immature Gran % Neutrophils % Lymphocytes % Monocytes % Eosinophils % Basophils % Absolute Neutrophils Absolute Lymphocytes Absolute Monocytes Absolute Eosinophils Absolute Basophils PT 9.7 INR 1.0 APTT 25.5 D-Dimer 483 Sodium 139 Potassium 3.7 Chloride 99 Carbon Dioxide 28.0 Anion Gap 12.0 H BUN 20 H Creatinine 0.96 Estimated GFR/1.73 m2 58.51 Glucose 102 H Calcium 9.4 Magnesium 2.3 Total Bilirubin 0.3 0.3 Conjugated Bilirubin 0.07 AST 22 21 ALT 30 30 Alkaline Phosphatase 100 96 Troponin I < 0.02 NT-Pro-B Natriuret Pep 181 Total Protein 8.2 8.2 Albumin 3.9 4.0 Urine Color Urine Clarity Urine pH Ur Specific Mason Urine Protein Urine Ketones Urine Blood Urine Nitrite Urine Bilirubin Urine Urobilinogen Ur Leukocyte Esterase Urine Glucose COUNTS INCLUDE 234 BEDS AT [facility] Medical History History of myocardial infarction (Chronic 02/03/13) Fibromyalgia (Chronic) Retinal vein occlusion of left eye (Chronic) Anxiety disorder (Chronic) Essential hypertension (Chronic) Hyperlipidemia (Chronic) Coronary artery disease (Chronic) Fibromyalgia (Acute) Hyperlipemia (Acute) Anxiety (Chronic) Coronary artery disease (Chronic) GERD (gastroesophageal reflux disease) (Chronic) HTN (hypertension) (Chronic) Myocardial infarction (Chronic) Surgical History H/O colonoscopy (Acute 11/06/18) History of esophagogastroduodenoscopy (EGD) (Acute 11/06/18) History of coronary artery stent placement (Chronic) Cholecystectomy (04/16/18) Social History Smoking/Tobacco Use Status: Never Alcohol Intake: never Drug use: Never Substance use type: does not use Do you feel safe in your relationship?: Yes
--- NOTE | 2019-02-10 15:14 | CHAPLAIN ---
Diana was speaking with Dr. Palmer who was letting her know that she was being discharged later today. Diana asked about leaving now and not waiting for the paperwork. She was told it would be better to wait. Diana's here on hospice two years ago, so coming back into the hospital is difficult for her. She believes she is grieving and not depressed. She talks about plans for planting barry in her flower boxes and maybe getting a cat. She recognizes is it is good to have plans. She also said she knows she will get hit with waves of emotions at times and now knows to expect that. She has attended a grief group at the [facility] and found it helpful. Diana is in touch with her two sons, usually be phone. She said she and her were for 40 years, and that she was once told that for each decade someone was it takes a year to get through the grieving process. So I've got two more years to ago, according to that she said, and she was spoke about knowing that she would always grieve for her .
== END 2019-02-10 13:25 | disposition home or self-care (01) ==
LOC: ER 15:35 → MS 17:06
PROVIDERS: Admitting Provider Internal Medicine; Emergency Provider Emergency Medicine; PCP Internal Medicine; Visit Provider Internal Medicine
DX: R07.9 Chest pain, unspecified (principal); R53.83 Other fatigue; I25.2 Old myocardial infarction; I25.10 Atherosclerotic heart disease of native coronary artery without angina pectoris; Z95.5 Presence of coronary angioplasty implant and graft; I10 Essential (primary) hypertension; F41.8 Other specified anxiety disorders; M79.7 Fibromyalgia; K21.9 Gastro-esophageal reflux disease without esophagitis
CPT/HCPCS: 36415; 80048; 80053; 80076; 93005; 99217; 99219; 99285; 71046; 81003; 83735; 83880; 84484; 85025; 85379; 85610; 85730; 93010; G0378

== ENCOUNTER 2019-02-16 01:00 | Outpatient (CLI) | payer MEDICARE, BC, SELFPAY ==
--- NOTE | 2019-02-16 09:30 | MERGEMPI_ITS ---
*[facility]* *[facility]* [address] [place] [address] Myocardial Perfusion Imaging - SPECT Regadenoson Date of study: 02/16/2019 *PATIENT PRESENTATION* Height: 165.1cm (65in) Blood Pressure: Weight: 97.3kg (214lb) BSA: 2.15m^2 Referring physician: Gamal Alarcon MD Ordering physician: Sebastien Palmer Impressions: Normal perfusion by Tc99m Sestamibi Imaging. Summary: 1. Myocardial perfusion imaging: No myocardial perfusion defects noted. 2. The calculated left ventricular ejection fraction after stress: 53%. History: REASON FOR VISIT: PT REPORTS TROUBLE FOR THE PAST FEW WEEKS CATCHING HER BREATH AND FEELING WEAKER. PT HAS A HISTORY OF A AL WITH SUBSEQUENT CARDIAC STENTING IN 2010. Risk factors: Family history of coronary artery disease. Hypertension. Obesity. ALLERGIES: SHELLFISH. STRAWBERRY. ADHESIVE. LANOLIN. MEDICATIONS: ASPIRIN 325 MG DAILY. METOPROLOL SUCCINATE 25 MG DAILY. LISINOPRIL/HYDROCHLOROTHIAZIDE 20/12.5 DAILY. MVI DAILY. SIMVASTATIN 5 MG Q HS. LORAZEPAM 0.5 MG PRN. MECLIZINE 25 MG PRN. Imaging Technique: Protocol: Regadenoson. Acquisition: Gated SPECT; 1 day - rest/stress. The patient was imaged in the supine position. Attenuation correction used. Isotope administration: - Rest. Tc[99m]-sestamibi. Dose: 11mCi. Injection time: 09:45 AM. Injection to stress time: 00:45. - Stress. Tc[99m]-sestamibi. Dose: 30.4mCi. Injection time: 11:30 AM. 1-2 min before end of exercise Baseline ECG: SINUS RHYTHM. HR 83 BPM. Stress protocol: +--------+---+ + + !Stage !HR !BP (mmHg) !Comments ! +--------+---+ + + !Baseline!83 !150/88 (109)! ! +--------+---+ + + !1 min !125!180/86 (117)!Inject Regadenoson.! +--------+---+ + + !3 min !118!170/90 (117)! ! +--------+---+ + + !6 min !108!160/80 (107)! ! +--------+---+ + + * Stress results: The rate-pressure product for the peak heart rate and blood pressure was 52343bt Hg/min. Stress ECG: LEXISCAN STRESS TEST ENDED IN 10 MINUTES & 11 SECONDS. NORMAL HEART RATE AND BLOOD PRESSURE RESPONSE TO LEXISCAN INJECTION. NO ECTOPY. NO ANGINA. PT REPORTED BILATERAL FORARM HEAVINESS & WEAKNESS 3 MINUTES POST LEXISCAN INJECTION. NO SIGNIFICANT ST SEGMENT CHANGES. Myocardial perfusion: Imaging information: gated. No myocardial perfusion defects noted. Ventricular Function (Wall Motion): The calculated left ventricular ejection fraction after stress: 53%. Study data: Gamal Alarcon MD supervised and was readily available during the procedure. This study was interpreted by [facility]. Study status: Routine. Consent: The risks, benefits, and alternatives to the procedure were explained to the patient and informed consent was obtained. Procedure: Initial setup. A baseline ECG was recorded. Surface ECG leads and manual cuff blood pressure measurements were monitored. Heart sounds: Normal. Lung sounds: Normal. Regadenoson stress test. Stress testing was performed, with regadenoson by intravenous bolus, for a total dose of 0.4mgover 10.00sec, followed by a 5ml saline flush. The infusion was terminated due to per protocol. Study completion: All catheters inserted during the procedure were removed. The patient tolerated the procedure well and was discharged from the lab. Discharge: The patient left the laboratory in stable condition. Birthdate: Patient birthdate: 1955. Sex: Gender: female. Study date: Study date: 02/16/2019. Study time: 00:01 AM. Electronically signed by Gamal Alarcon MD 02/16/2019 17:28
[2019-02-16] MEDS: Regadenoson 0.4 MG/5 ML SYR IVP (11:22)
== END 2019-02-16 01:20 ==
PROVIDERS: PCP Internal Medicine; Visit Provider Internal Medicine
DX: R06.02 Shortness of breath (principal); R53.83 Other fatigue; I25.2 Old myocardial infarction; I25.10 Atherosclerotic heart disease of native coronary artery without angina pectoris; I10 Essential (primary) hypertension; Z82.49 Family history of ischemic heart disease and other diseases of the circulatory system; Z95.5 Presence of coronary angioplasty implant and graft
CPT/HCPCS: 78452; 93016; 93018; 93017; J2785

== ENCOUNTER 2019-03-01 05:08 | Emergency (ER) | payer MEDICARE, BC, SELFPAY ==
[2019-03-01] VITALS (27 sets, daily range): BP systolic 103–136; BP diastolic 61–95; PULSE 68–88; RESP 11–28; TEMP 37–37.1; O2SAT 93–98
--- NOTE | 2019-03-01 05:16 | DI.CT_ITS ---
SYMPTOM/DIAGNOSIS: CHEST PAIN PE CHEST CT: CT angiography was performed with multi slice acquisition and multi planar and 3D reconstruction. CT angiography of the chest was performed with a bolus infusion of 100 cc's of Omnipaque 350. There is no evidence of pulmonary embolic disease. No thoracic aortic aneurysm or dissection is seen. Lungs are generally clear. No pleural effusion. Tracheobronchial tree appears intact. No mediastinal or hilar adenopathy. Images obtained through the upper abdomen show grossly unremarkable appearance of visualized portions of the liver, spleen, pancreas, adrenals and kidneys. CONCLUSION: No evidence of pulmonary embolic disease. No thoracic aortic pathology.
--- NOTE | 2019-03-01 05:18 | ED.GENADUL_ITS ---
Discharge Plan Disposition Patient Disposition: HOME Condition: Improving Discharge Details Chief Complaint: Chest Pain Clinical Impression: Anxiety disorder, Arm pain Primary Care Provider: Bal George ED Provider: Essie Jose Home Meds and New Rx's Prescriptions: Continued lisinopril-hydrochlorothiazide [Zestoretic] 1 EACH tablet 1 tab-cap PO DAILY RF: 0 aspirin 325 MG tablet 325 mg PO DAILY RF: 0 simvastatin [Zocor] 5 MG tablet 5 mg PO HS RF: 0 Daily Multiple 1 EACH tablet 1 tab-cap PO DAILY RF: 0 lorazepam 0.5 MG tablet 0.5 mg PO PRN PRNRF: 0 metoprolol succinate 25 MG tablet extended release 24 hr 25 mg PO DAILY RF: 0 meclizine [Antivert] 25 MG tablet 25 mg PO PRN PRNRF: 0 nitroglycerin [Nitrostat] 0.4 MG tablet, sublingual 1 tab Sublingual . DIRECTED PRNRF: 0 acetaminophen [Masophen] 500 MG tablet 500 mg PO Q4H PRN PRNQty: 30 RF: 0 Discharge Instructions Instructions: Anxiety (ED), Arm Pain (ED) Additional Instructions: You will receive a call from care management regarding a follow-up appointment with cardiology. Call your primary care doctor tomorrow to schedule a follow-up appointment for reevaluation this week. If unable, follow-up with your scheduled appointment with your primary care doctor later this month. Return immediately to the emergency department if you develop any worsening or new concerning symptoms such as chest pain, worsening shortness of breath, vomiting or sweating. Discharge Data Discharge Physician: Essie Jose Medical Decision Making <Gamal Pate MD - Last Filed: 03/01/19 07:14> 64 yo female with hx of CAD s/p Stent to her mid RCA in 2010, HTN, dyslipidemia, depression, anxiety, and obesity comes in with chief complaint of bilateral forearm pain that started in her chest. Denies loc, diaphoresis, n/v, radiation of her pain or recent falls. Has full rom of her arms and has reporducible anterior chest pain. She appears anxious on exam, no jvd, no pitting edema of her legs. Was admitted two weeks ago for sob/acs rule out with negative troponins and had f/u negative stress echo as an outpatient. She states she has not had any fevers or chills. HEr ecg shows no acute changes and her symptoms seem atypical for acs but will send troponin to evaluate for infarction. Will obtain CTA to eval for possible PE given wells score i moderate given just as likely number one diagnosis. No tearing back pain and normal vascular exam so doubt dissection pt feels better after ativan, resting in bed in no distress, inital labs unremarkable, will obtain delta troponin and ecg and if this and vrad read of cta negative feel she can be d/c'd and f/u with cardiology in 1-2 weeks pt remains stable, is sleeping in no distress on reassessment, vrad report is no acute findings. pt signed out to oncoming provider pending delta troponin and ecg Differential Diagnosis anxiety, acs, pe, dissection Medical Records Medical records reviewed: Yes I reviewed the patient's medical records. Imaging Data Radiologic Study: Attestation: I personally reviewed and interpreted this imaging study as follows: Imaging: CT Scan My impression: no acute findings Lab Data Lab results reviewed: Yes I reviewed the patient's lab results. ECG Data Attestation: I personally reviewed and interpreted this ECG (s) as follows: Prior ECG tracings: available for review Interpretation: sinus rhythm, rate of 80, pr 160, qtc 416 <Essie Jose DO - Last Filed: 03/01/19 09:57> 0800 -- Please see Dr. Pate's note for initial presentation, exam and plan. 64yo F w/ a h/o anxiety, fibromyalgia, hypertension, high cholesterol, coronary artery disease and SC with history of stent to mid RCA in 2010 who presented with bilateral forearm heaviness and pain associated with shortness of breath this morning while walking around at home. She denies any chest pain. Patient had a negative stress echo less than 2 weeks ago. She was admitted on 02/09 for fatigue and had negative cardiac work-up followed by the negative nuc med scan. Cardiac work-up ordered on arrival and thus far has had negative troponin and unchanged EKG and negative CTA. Case endorsed to follow-up on repeat troponin and EKG and if negative, okay for discharge home. 0920 -- Upon my evaluation, patient denies any shortness of breath and states her forearm pain and heaviness is resolved. Second troponin and EKG unremarkable. Patient states she feels like her symptoms are likely due to anxiety or her fibromyalgia. She states her symptoms feel different than with her previous SC. Patient feels good and is requesting to go home. She states she has had difficulty obtaining a follow-up appointment with cardiology. Will place patient on care management list to arrange for follow-up appoint with cardiology in the next 1 to 2 weeks. She also has a follow-up appointment with her [facility] doctor later this month. She is instructed to call her primary care doctor office tomorrow to schedule follow-up appointment for this week. She is instructed to return here with any worsening or new concerning symptoms. Medical Records Medical records reviewed: Yes I reviewed the patient's medical records. Imaging Data Radiologic Study: Radiologist's impression: CT Angiography Chest With Contrast EXAM DATE/TIME: 03/01/2019 5:16 AM CLINICAL HISTORY: 64 years old, female; Type not specified; Patient HX: Chest pain; Per PT: Heart attack in 2010 TECHNIQUE: Imaging protocol: Axial computed tomographic angiography images of the chest with intravenous contrast using CT angiography protocol. Coronal and sagittal reformatted images were created and reviewed. 3D rendering: MIP reconstructed images were created and reviewed. COMPARISON: CR XR CHEST 2V PA LATERAL 02/09/2019 12:42 PM FINDINGS: Pulmonary arteries: No acute pulmonary embolus. Aorta: No aortic aneurysm. No aortic dissection. Lungs: No consolidation. No masses. Pleural space: Normal. No pneumothorax. No pleural effusion. Heart: No cardiomegaly. No pericardial effusion. Mediastinum: Mild hiatal hernia. Lymph nodes: Unremarkable. No enlarged lymph nodes. Bones/joints: Diffuse idiopathic skeletal hyperostosis. Soft tissues: Unremarkable. IMPRESSION: No acute pulmonary embolus. No thoracic aortic aneurysm or dissection. Lab Data Lab results reviewed: Yes I reviewed the patient's lab results. Lab results narrative: Laboratory Tests Range/Units 03/01/19 03/01/19 03/01/19 05:20 05:20 05:20 WBC (4.4-10.8) k/cumm 7.32 RBC (4.00-5.20) m/cumm 4.60 Hgb (12.0-15.5) g/dL 13.1 Hct (36.0-46.0) % 40.1 MCV (80-95) fL 87.2 MCH (27.0-33.0) pg 28.5 MCHC (32.0-36.0) g/dL 32.7 RDW (11.7-14.6) % 14.9 H Plt Count (130-400) x1000/uL 226 MPV (8.0-11.0) fL 11.6 H Immature Gran % 0.1 Neutrophils % 53.4 Lymphocytes % 35.0 Monocytes % 6.8 Eosinophils % 4.0 Basophils % 0.7 Absolute Neutrophils (1.2-6.7) k/cumm 3.91 Absolute Lymphocytes (1.2-3.4) k/cumm 2.56 Absolute Monocytes (0.11-0.7) k/cumm 0.50 Absolute Eosinophils (0.0-0.7) k/cumm 0.29 Absolute Basophils (0.0-0.2) k/cumm 0.05 PT (9.3-11.0) sec 9.9 INR (0.9-1.1) 1.0 APTT (21.0-31.4) sec 24.8 Sodium (136-145) mmol/L 144 Potassium (3.5-5.1) mmol/L 3.5 Chloride (98-107) mmol/L 105 Carbon Dioxide (21.0-32.0) mmol/L 27.2 Anion Gap (3-11) mmol/L 11.8 H BUN (7-18) mg/dL 22 H Creatinine (0.55-1.02) mg/dL 0.99 Estimated GFR/1.73 m2 (mL/min/1.73m2) 56.29 Glucose (70-100) mg/dL 113 H Calcium (8.5-10.1) mg/dL 9.0 Total Bilirubin (0.2-1.0) mg/dL 0.2 AST (15-37) U/L 17 ALT (12-78) U/L 27 Alkaline Phosphatase (46-116) U/L 96 Troponin I (0.00-0.06) ng/mL < 0.02 Total Protein (6.4-8.2) g/dL 7.5 Albumin (3.4-5.0) g/dL 3.6 Range/Units 03/01/19 08:10 WBC (4.4-10.8) k/cumm RBC (4.00-5.20) m/cumm Hgb (12.0-15.5) g/dL Hct (36.0-46.0) % MCV (80-95) fL MCH (27.0-33.0) pg MCHC (32.0-36.0) g/dL RDW (11.7-14.6) % Plt Count (130-400) x1000/uL MPV (8.0-11.0) fL Immature Gran % Neutrophils % Lymphocytes % Monocytes % Eosinophils % Basophils % Absolute Neutrophils (1.2-6.7) k/cumm Absolute Lymphocytes (1.2-3.4) k/cumm Absolute Monocytes (0.11-0.7) k/cumm Absolute Eosinophils (0.0-0.7) k/cumm Absolute Basophils (0.0-0.2) k/cumm PT (9.3-11.0) sec INR (0.9-1.1) APTT (21.0-31.4) sec Sodium (136-145) mmol/L Potassium (3.5-5.1) mmol/L Chloride (98-107) mmol/L Carbon Dioxide (21.0-32.0) mmol/L Anion Gap (3-11) mmol/L BUN (7-18) mg/dL Creatinine (0.55-1.02) mg/dL Estimated GFR/1.73 m2 (mL/min/1.73m2) Glucose (70-100) mg/dL Calcium (8.5-10.1) mg/dL Total Bilirubin (0.2-1.0) mg/dL AST (15-37) U/L ALT (12-78) U/L Alkaline Phosphatase (46-116) U/L Troponin I (0.00-0.06) ng/mL < 0.02 Total Protein (6.4-8.2) g/dL Albumin (3.4-5.0) g/dL ECG Data Attestation: I personally reviewed and interpreted this ECG (s) as follows: Interpretation: #1 -- 0515 --86 bpm, sinus, no acute ST elevation or depression. QTc 416. QRS 82 #2 -- 0806 -- 81bpm, sinus, no acute ST elevation or depression. QTc 436. QRS 80 HPI <Gamal Pate MD - Last Filed: 03/01/19 07:14> General Mode of arrival: EMS . Date/Time Provider Initiated Documentation: 03/01/19 05:11 . Limitations to Documentation: no limitations . Information obtained by: patient . History of Present Illness 64 year old F presents to the emergency department with the chief complaint of forearm pain, described as moderate, Quality is described as aching, and is localized to the left, right and upper extremity. Patient reports radiation to (chest). Patient started experiencing this hour(s) (1) and it has been constant. No relieving factors improve symptom(s), No exacerbating factors reported . Patient notes no other symptoms.. Patient did receive the following treatments prior to arrival, Aspirin Related Data Home Medications Medication Instructions Recorded Confirmed Daily Multiple 1 tab-cap PO DAILY tab-cap 02/03/13 03/01/19 aspirin 325 mg PO DAILY tab-cap 02/03/13 03/01/19 lisinopril-hydrochlorothiazide 1 tab-cap PO DAILY tab-cap 02/03/13 03/01/19 [Zestoretic] simvastatin [Zocor] 5 mg PO HS tab-cap 02/03/13 03/01/19 lorazepam 0.5 mg PO PRN PRN 02/17/13 03/01/19 metoprolol succinate 25 mg PO DAILY 02/17/13 03/01/19 meclizine [Antivert] 25 mg PO PRN PRN 05/21/15 03/01/19 nitroglycerin [Nitrostat] 1 tab SUBLINGUAL . DIRECTED PRN 04/09/18 03/01/19 acetaminophen [Masophen] 500 mg PO Q4H PRN PRN #30 tablet 04/18/18 03/01/19 Previous Rx's Medication Instructions Recorded acetaminophen [Masophen] 500 mg PO Q4H PRN PRN #30 tablet 04/18/18 Allergies Allergy/AdvReac Type Severity Reaction Status Date / Time shellfish derived Allergy Severe Anaphylaxsi Verified 03/01/19 06:15 s strawberry Allergy Severe Anaphalaxsi Verified 03/01/19 06:15 s adhesive Allergy Intermediate Skin Rash Verified 03/01/19 06:15 lanolin Allergy Intermediate Skin Rash Verified 03/01/19 06:15 benzoyl peroxide Allergy Mild Rash Verified 03/01/19 06:15 clobetasol Allergy Unknown Verified 03/01/19 06:15 aspartame AdvReac Mild Visual Verified 03/01/19 06:15 Disturbances nitrofurantoin AdvReac Mild Verified 03/01/19 06:15 polymyxin B AdvReac Mild Verified 03/01/19 06:15 triamcinolone AdvReac Mild Verified 03/01/19 06:15 wool Allergy Severe Hives Uncoded 03/01/19 06:15 Mushrooms AdvReac Mild Nausea Uncoded 03/01/19 06:15 General ILIA: 2 Review of Systems <Gamal Pate MD - Last Filed: 03/01/19 07:14> Review of Systems All systems reviewed & are unremarkable except as noted in HPI and below Constitutional Denies chills, Denies fever(s) and Denies weakness Cardiovascular Denies dyspnea Respiratory Denies cough and Denies dyspnea Gastrointestinal Denies abdominal pain, Denies nausea and Denies vomiting Integumentary/Breasts Denies rash Neurologic Denies weakness PFSH <Gamal Pate MD - Last Filed: 03/01/19 07:14> Social History Smoking/Tobacco Use Status: Never Alcohol Intake: never Drug use: Never Substance use type: does not use Do you feel safe at home: Yes Do you feel safe in your relationship?: Yes Exam <Gamal Pate MD - Last Filed: 03/01/19 07:14> Const General: anxious Orientation: alert HENMT Head: normal to inspection Ears: external ears normal General nose exam: external nose normal Mouth: moist mucous membranes Eyes General: appearance normal, both eyes and all related structures Neck Neck: normal visual inspection Resp Effort & Inspection: normal respiratory effort and able to speak in complete sentences Cardio Rate: regular rate Skin General skin exam: no rashes or lesions noted Neuro General: alert and oriented x3 Extrem General: normal to inspection Psych Mental Status: mental status grossly normal Sign Out <Gamal Pate MD - Last Filed: 03/01/19 07:14> Sign Out Data: Sign Out Comment: f/u on repeat trop and ecg Last updated by Gamal Pate MD at 03/01/19 06:50
[2019-03-01] MEDS: LORazepam 2 MG/ML VIAL 1 MG IVP (05:24)
[2019-03-01 05:26] LABS: Abs Immature Grans 0.01 k/cumm (0.0-0.09); Absolute Basophil Count 0.05 k/cumm (0.0-0.2); Absolute Eosinophil Count 0.29 k/cumm (0.0-0.7); Absolute Lymphocyte Count 2.56 k/cumm (1.2-3.4); Absolute Neutrophil Count 3.91 k/cumm (1.2-6.7); Basophils % 0.7; HCT 40.1 % (36.0-46.0); HGB 13.1 g/dL (12.0-15.5); Immature Grans % 0.1; Mean Corp. HGB Concentration 32.7 g/dL (32.0-36.0); Mean Corpuscular Hemoglobin 28.5 pg (27.0-33.0); Mean Corpuscular Volume 87.2 fL (80-95); Mean Platelet Volume 11.6 fL (8.0-11.0); Monocytes % 6.8; Neutrophils % 53.4; Platelet Count 226 x1000/uL (130-400); RBC Distribution Width 14.9 % (11.7-14.6); White Blood Cell Count 7.32 k/cumm (4.4-10.8)
[2019-03-01 05:39] LABS: PTT Activated 24.8 sec (21.0-31.4); Prothrombin Time 9.9 sec (9.3-11.0)
[2019-03-01 05:42] LABS: ALT 27 U/L (12-78); AST 17 U/L (15-37); Albumin 3.6 g/dL (3.4-5.0); Alkaline Phosphatase 96 U/L (46-116); Anion Gap 11.8 mmol/L (3-11); BUN 22 mg/dL (7-18); Bilirubin, Total 0.2 mg/dL (0.2-1.0); CO2 27.2 mmol/L (21.0-32.0); CREATININE 0.99 mg/dL (0.55-1.02); Chloride 105 mmol/L (98-107); Estimated GFR 56.29 (mL/min/1.73m2); Glucose 113 mg/dL (70-100); Potassium 3.5 mmol/L (3.5-5.1); Sodium 144 mmol/L (136-145); Total Protein 7.5 g/dL (6.4-8.2)
[2019-03-01 05:45] LABS: Troponin I < 0.02 ng/mL (0.00-0.06)
[2019-03-01] MEDS: Omnipaque 350 MG/ML 100 ML BTL IJ (05:55)
--- NOTE | 2019-03-01 06:30 | DI.VRAD_ITS ---
EXAM: CT Angiography Chest With Contrast EXAM DATE/TIME: 03/01/2019 5:16 AM CLINICAL HISTORY: 64 years old, female; Type not specified; Patient HX: Chest pain; Per PT: Heart attack in 2010 TECHNIQUE: Imaging protocol: Axial computed tomographic angiography images of the chest with intravenous contrast using CT angiography protocol. Coronal and sagittal reformatted images were created and reviewed. 3D rendering: MIP reconstructed images were created and reviewed. COMPARISON: CR XR CHEST 2V PA LATERAL 02/09/2019 12:42 PM FINDINGS: Pulmonary arteries: No acute pulmonary embolus. Aorta: No aortic aneurysm. No aortic dissection. Lungs: No consolidation. No masses. Pleural space: Normal. No pneumothorax. No pleural effusion. Heart: No cardiomegaly. No pericardial effusion. Mediastinum: Mild hiatal hernia. Lymph nodes: Unremarkable. No enlarged lymph nodes. Bones/joints: Diffuse idiopathic skeletal hyperostosis. Soft tissues: Unremarkable. IMPRESSION: No acute pulmonary embolus. No thoracic aortic aneurysm or dissection. Dictated and Authenticated by: Alejandro Melgar MD. Ordering:JUS Yeung MD
[2019-03-01 08:36] LABS: Troponin I < 0.02 ng/mL (0.00-0.06)
--- NOTE | 2019-03-01 10:02 | CMPROGNOTE_ITS ---
Care Management Progress Note CM received request for transportation support from [facility] Duct Layer Supervisor. Per chart review, Diana utilizes [facility] the community. As Taxi services are unavailable on Saturday, CM paged [employer] Systems Administrator, coordinated transport for 1015, notified Anette; ED and Access Typing Office Worker of plan.
--- NOTE | 2019-03-03 09:11 | PDOC.ERCMPRO ---
Care Management Progress Note 03/03-Dr. Jose requested assistance with a cardiology f/y within the next couple weeks. [facility]erral [facility] this [facility].
== END 2019-03-01 09:38 | disposition home or self-care (01) ==
PROVIDERS: Emergency Medicine; Emergency Provider Physician Assistant; PCP Internal Medicine
DX: F41.8 Other specified anxiety disorders (principal); R07.9 Chest pain, unspecified; I25.10 Atherosclerotic heart disease of native coronary artery without angina pectoris; I10 Essential (primary) hypertension; Z95.2 Presence of prosthetic heart valve
CPT/HCPCS: 36415; 71275; 80053; 93005; 96374; 99285; 84484; 85025; 85610; 85730; 93010; J2060; J3490

== ENCOUNTER 2020-10-30 00:08 | Emergency (ER) | payer MEDICARE, BC, SELFPAY ==
[2020-10-30] VITALS (39 sets, daily range): BP systolic 97–154; BP diastolic 48–86; PULSE 73–95; RESP 5–21; TEMP 36.7; O2SAT 80–99
--- NOTE | 2020-10-30 | RT.EKG_ITS ---
APPROVED REPORT Exam: Resting ECG Patient Location: E HR:87 bpm ECG Measurements Heart Rate 87 AXIS CO 171 P 54 QRSd 78 QRS -26 QT 374 T 43 QTc 451 Conclusion Sinus rhythm...normal P axis, V-rate 60- 99 Low voltage, precordial leads...precordial leads <1.0mV Physician: Rate 87, sinus rhythm, intervals normal, no significant ST elevations, no STEMI. Minimal less than [address] depression in V4 and V5. No reciprocal changes.
--- NOTE | 2020-10-30 00:08 | ED.GENADUL_ITS ---
Discharge Plan Disposition Patient Disposition: HOME Condition: Good Discharge Details Clinical Impression: Anxiety disorder, Chest pain Primary Care Provider: Bal George ED Provider: Edwin Nath Home Meds and New Rx's Prescriptions: Continued lisinopril-hydrochlorothiazide [Zestoretic] 1 EACH tablet 1 tab-cap PO DAILY RF: 0 aspirin 325 MG tablet 325 mg PO DAILY RF: 0 simvastatin [Zocor] 5 MG tablet 5 mg PO HS RF: 0 Daily Multiple 1 EACH tablet 1 tab-cap PO DAILY RF: 0 lorazepam 0.5 MG tablet 0.5 mg PO PRN PRNRF: 0 metoprolol succinate 25 MG tablet extended release 24 hr 25 mg PO DAILY RF: 0 meclizine [Antivert] 25 MG tablet 25 mg PO PRN PRNRF: 0 nitroglycerin [Nitrostat] 0.4 MG tablet, sublingual 1 tab Sublingual . DIRECTED PRNRF: 0 acetaminophen [Masophen] 500 MG tablet 500 mg PO Q4H PRN PRNQty: 30 RF: 0 Discharge Instructions Instructions: Chest Pain (ED), Anxiety (ED) Additional Instructions: At this time your cardiac work-up shows no evidence of current heart attack. Your symptoms seem to be closely related to the notable stress that is occurring in your life. Anxiety may be a strong component of your onset of symptoms. That being said you do have a history of cardiac disease, and so it is important to be vigilant, if you have any return of your symptoms to call us or return immediately for reassessment. A repeat stress test may be reasonable in the future. If you notice any worsening of your symptoms, or any new symptoms such as vomiting, diarrhea, fever, chills, shortness of breath, chest pain, numbness, weakness, or fainting , please return immediately to the emergency department for reevaluation. Please follow up with your primary care provider as soon as possible for reassessment and reevaluation. As always, it was a pleasure participating in your medical care today. Referrals: Bal George MD [Primary Care Provider] - Medical Decision Making 65 yo female with hx of CAD s/p Stent to her mid RCA in 2010, HTN, dyslipidemia, depression, anxiety, fibromyalgia and obesity presents today for evaluation of chest pain. Patient states she was on her exercise bike this evening which she normally does and during the last minute for 10 minutes exercise. She regained notably sweaty, diaphoretic, had notable chest pressure and chest taking this. She thought it might be anxiety and took a lorazepam but this did not change her symptoms. She contacted EMS, who came and evaluated her. She was given 324 aspirin, and brought to the ER for further assess. Currently the patient describes her pain as 5 out of 10, achy, pressure-like. She denies any pleuritic chest pain, chills and ripping sensation or tearing sensation. She states that the symptoms feel different than her previous [place] which was a burning pain in both of her arms. She denies any other complaints at this time. She denies any cough, fever, chills, recent long trips, surgeries or procedures. She has not left her house during the pandemic concern for catching Addie. Exam is unremarkable. EKG shows minimal less than 1 mm depression in V4 V5 V6, which is slightly atypical compared to prior EKG, however no evidence of STEMI. With the patient's risk factors will get troponin, portable chest x-ray. Will evaluate for potential cardiac etiology. Will give nitroglycerin trial. No red flags concerning for PE at this time. Will monitor closely and reassess. 1:04 AM Patient's laboratory work-up is returned, no significant abnormalities, potassium slightly low at 3.3, but no other concerning findings. proBNP is normal to suggest no signs of significant strain, troponin is normal. Nitroglycerin was given to the patient on her arrival, this did not improve her symptoms at all, and made her feel more uneasy, eventually the patient did fall asleep, when she woke up she felt that her chest pain is notably starting to improve. On reassessment she states that this feels most closely related to an anxiety attack. She admits to myself and nursing that she has had made a notable increase in her stressors recently and she feels this is contributing. Although this may certainly be the case as the cause of her chest pain and her symptoms may not be cardiac in nature, with her history I do feel it is prudent to do serial troponins and repeat EKG. We will continue to monitor closely and reassess. 4:19 AM The patient's laboratory work-up is returned, serial troponins are normal, serial EKGs are unchanged and show no evidence of STEMI or hyperacute significant T wave changes. On review of the patient's records she did have a stress test which was normal on 02/16/2019. This is notably reassuring. Patient is chest pain-free now after sleeping. On rediscussion of the event the patient now admits that she has had a notable increase in stressors over the last few weeks, including decreased functionality with her vision, and even more importantly notable medical issues with her sister. This is led to a significan t amount of stress, and she now states that when she was getting on the treadmill she felt distress building, and then it seemed to climax leading to what she states was now identical to my previous panic attacks. With no other history of exertional dyspnea or exertional chest pain recently, and he continued normal exercise tolerance, in conjunction with her negative work-up, recent negative stress test, and clinical historical components, her signs and symptoms at this time are inconsistent with significant cardiac etiology and instead consistent with a component of a panic attack. I did offer staying overnight and other stress testing options, but at this point the patient is requesting to go home and feels comfortable going home. I did ask the patient if I can call her sons for her, she has requested that I do not, that she called stat. At this time patient appears well, and is stable for discharge. I have extensively reviewed the treatment plan and discharge instructions with the patient. I have addressed all patient concerns at this time. The patient was made aware of what symptoms to monitor for that would warrant a return to the emergency department. Discussed the plan with the patient, they demonstrate verbal understanding and agreement with our assessment and plan at this time. The documentation in this chart was dictated using [employer] dictation software. Please excuse any dictation errors. EKG 00: 5 Rate 87, sinus rhythm, intervals normal, no significant ST elevations, no STEMI. Minimal less than [address] depression in V4 and V5. No reciprocal changes. FINDINGS: Lungs: No pulmonary vascular congestion or consolidation. Pleural spaces: Unremarkable. No pleural effusion. No pneumothorax. Heart/Mediastinum: The cardiomediastinal silhouette is within normal limits taking into account patient rotation. Bones/joints: No acute findings. IMPRESSION: No acute findings. Thank you for allowing us to participate in the care of your patient. Dictated and Authenticated by: Shawna Livingston MD 10/30/2020 12:30 AM Eastern Time ([place] & [place]) HPI General Date/Time Provider Initiated Documentation: 10/30/20 00:27 . HPI Narrative: 65 yo female with hx of CAD s/p Stent to her mid RCA in 2010, HTN, dyslipidemia, depression, anxiety, fibromyalgia and obesity presents today for evaluation of chest pain. Patient states she was on her exercise bike this evening which she normally does and during the last minute for 10 minutes exercise. She regained notably sweaty, diaphoretic, had notable chest pressure and chest taking this. She thought it might be anxiety and took a lorazepam but this did not change her symptoms. She contacted EMS, who came and evaluated her. She was given 324 aspirin, and brought to the ER for further assess. Currently the patient describes her pain as 5 out of 10, achy, pressure-like. She denies any pleuriti c chest pain, chills and ripping sensation or tearing sensation. She states that the symptoms feel different than her previous [place] which was a burning pain in both of her arms. She denies any other complaints at this time. She denies any cough, fever, chills, recent long trips, surgeries or procedures. She has not left her house during the pandemic concern for catching Covid. Related Data Home Medications Medication Instructions Recorded Confirmed Daily Multiple 1 tab-cap PO DAILY tab-cap 02/03/13 10/30/20 aspirin 325 mg PO DAILY tab-cap 02/03/13 10/30/20 lisinopril-hydrochlorothiazide 1 tab-cap PO DAILY tab-cap 02/03/13 10/30/20 [Zestoretic] simvastatin [Zocor] 5 mg PO HS tab-cap 02/03/13 10/30/20 lorazepam 0.5 mg PO PRN PRN 02/17/13 10/30/20 metoprolol succinate 25 mg PO DAILY 02/17/13 10/30/20 meclizine [Antivert] 25 mg PO PRN PRN 05/21/15 10/30/20 nitroglycerin [Nitrostat] 1 tab SUBLINGUAL . DIRECTED PRN 04/09/18 10/30/20 acetaminophen [Masophen] 500 mg PO Q4H PRN PRN #30 tablet 04/18/18 10/30/20 Previous Rx's Medication Instructions Recorded acetaminophen [Masophen] 500 mg PO Q4H PRN PRN #30 tablet 04/18/18 Allergies Allergy/AdvReac Type Severity Reaction Status Date / Time shellfish derived Allergy Severe Anaphylaxsi Verified 10/30/20 00:21 s strawberry Allergy Severe Anaphalaxsi Verified 10/30/20 00:21 s adhesive Allergy Intermediate Skin Rash Verified 10/30/20 00:21 lanolin Allergy Intermediate Skin Rash Verified 10/30/20 00:21 benzoyl peroxide Allergy Mild Rash Verified 10/30/20 00:21 clobetasol Allergy Unknown Verified 10/30/20 00:21 aspartame AdvReac Mild Visual Verified 10/30/20 00:21 Disturbances nitrofurantoin AdvReac Mild Verified 10/30/20 00:21 polymyxin B AdvReac Mild Verified 10/30/20 00:21 triamcinolone AdvReac Mild Verified 10/30/20 00:21 wool Allergy Severe Hives Uncoded 10/30/20 00:21 Mushrooms AdvReac Mild Nausea Uncoded 10/30/20 00:21 General ILIA: 2 Review of Systems All systems reviewed & are unremarkable except as noted in HPI and below PFSH Medical History (Updated 10/30/20 @ 04:00 by Edwin Nath DO) Anxiety Anxiety disorder Coronary artery disease Coronary artery disease Essential hypertension Fibromyalgia Fibromyalgia GERD (gastroesophageal reflux disease) History of myocardial infarction (02/03/13) HTN (hypertension) Hyperlipemia Hyperlipidemia Myocardial infarction Retinal vein occlusion of left eye Surgical History Cholecystectomy (04/16/18) H/O colonoscopy (11/06/18) 11/06/18 FEL[facility] Brannon, hyperplastic polyp, repeat 10 years. mg History of coronary artery stent placement History of esophagogastroduodenoscopy (EGD) (11/06/18) 11/06/18 EGD with FELIPE Thomason, repeat as needed. mg Social History Smoking/Tobacco Use Status: Never Smoking risk assessment performed?: Yes Alcohol Intake: never Drug use: Never Substance use type: does not use Do you feel safe at home: Yes Do you feel safe in your relationship?: Yes Exam Narrative Exam Narrative: 1.Const: Well-nourished, Well-developed, appearing stated age 2.Eyes: PERRL, no conjunctival injection, and symmetrical lids. 3.ENT: Atraumatic external nose and ears. Moist MM. Neck: Symmetric, trachea midline, No thyromegaly. 4.CVS: +S1/S2, No murmurs or gallops. Peripheral pulses 2+ and equal in all extremities. Brisk capillary refill in all extremities. No reproducible chest pain 5.RESP: Unlabored respiratory effort. Clear to auscultation bilaterally. No wheezes rales or rhonchi 6.GI: Soft, Nontender/Nondistended, No hepatosplenomegaly. No guarding or rebound. 7.MSK: Normocephalic/Atraumatic, Extremities w/o deformity or ttp No cyanosis or clubbing, Normal movement of all extremities, no calf tenderness 8.Skin: Warm, Dry. No rashes or lesions. 9.Neuro: desilverizer II-XII grossly intact. Sensation grossly intact, no focal neurologic deficits. 10.Psych: (AAO) x3. Appropriate mood and affect
--- NOTE | 2020-10-30 00:15 | DI.RAD_ITS ---
EXAM: XR PORTABLE CHEST AP CLINICAL HISTORY: central chest pain TECHNIQUE: 2D digital imaging was performed. COMPARISON: No exams were available for comparison FINDINGS: LUNGS: Leads overlie the chest. Suboptimal pulmonary inflation. The lungs are clear. No pleural ab normality seen. HEART: Normal. MEDIASTINUM: Normal. BONES: Degenerative disc changes and scoliosis. IMPRESSION: No acute pulmonary findings. DATA REPOSITORY: RADIATION DOSE DELIVERED:
[2020-10-30] MEDS: nitroGLYcerin 0.4 MG TAB SL (00:20)
[2020-10-30 00:27] LABS: Abs Immature Grans 0.02 10^3/uL (0.0-0.06); Absolute Basophil Count 0.07 10^3/uL (0.0-0.2); Absolute Eosinophil Count 0.15 10^3/uL (0.0-0.7); Absolute Lymphocyte Count 3.69 10^3/uL (1.2-3.4); Absolute Monocyte Count 0.65 10^3/uL (0.1-0.8); Absolute Neutrophil Count 4.07 10^3/uL (1.2-6.7); Basophils % 0.8; Eosinophils % 1.7; HCT 41.4 % (36.0-46.0); HGB 13.5 g/dL (11.2-15.7); Immature Grans % 0.2; Lymphocytes % 42.7; MCH 28.7 pg (27.0-33.0); MCHC 32.6 % (32.0-36.0); MCV 88.1 fL (80-95); MPV 12.1 fL (8.0-11.0); Monocytes % 7.5; Neutrophils % 47.1; Nucleated RBC 0 %; Platelet Count 233 10^3/uL (130-400); RDW-SD 44.7 fL; WBC 8.65 10^3/uL (4.4-10.8)
--- NOTE | 2020-10-30 00:31 | DI.VRAD_ITS ---
PROCEDURE INFORMATION: Exam: XR Chest, 1 View Exam date and time: 10/30/2020 12:17 AM Age: 65 years old Clinical indication: Patient HX: Central chest pain TECHNIQUE: Imaging protocol: XR of the chest Views: 1 view. COMPARISON: CR XR CHEST 2V PA LATERAL 02/09/2019 12:42 PM FINDINGS: Lungs: No pulmonary vascular congestion or consolidation. Pleural spaces: Unremarkable. No pleural effusion. No pneumothorax. Heart/Mediastinum: The cardiomediastinal silhouette is within normal limits taking into account patient rotation. Bones/joints: No acute findings. IMPRESSION: No acute findings. Dictated and Authenticated by: Shawna Livingston MD. Ordering:CHELSEA Pineda MD
[2020-10-30] MEDS: Ondansetron 4 MG/2 ML VIAL IVP (00:36)
--- NOTE | 2020-10-30 00:45 | RT.EKG_ITS ---
APPROVED REPORT Exam: Resting ECG Patient Location: E HR:77 bpm ECG Measurements Heart Rate 77 AXIS MA 166 P 51 QRSd 78 QRS -30 QT 397 T 24 QTc 450 Conclusion Sinus rhythm...normal P axis, V-rate 60- 99 Inferior infarct, old...Q >35mS, II III aVF Physician: No change from prior EKG today. No Stemi
[2020-10-30 00:52] LABS: ALT 26 U/L (14-59); AST 16 U/L (15-37); Albumin 3.8 g/dL (3.4-5.0); Alkaline Phosphatase 87 U/L (46-116); Anion Gap 8.6 mmol/L (3-11); BUN 33 mg/dL (7-18); Bilirubin, Total 0.3 mg/dL (0.2-1.0); CO2 28.4 mmol/L (21.0-32.0); CREATININE 1.1 mg/dL (0.55-1.02); Calcium 9.1 mg/dL (8.5-10.1); Chloride 101 mmol/L (98-107); Estimated GFR 49.69 (mL/min/1.73m2); Glucose 112 mg/dL (74-106); Potassium 3.3 mmol/L (3.5-5.1); Sodium 138 mmol/L (136-145); Total Protein 7.7 g/dL (6.4-8.2); Troponin I < 0.05 ng/mL (<0.06)
[2020-10-30 00:53] LABS: PTT Activated 26.1 sec (21.0-27.5); Prothrombin Time 10.4 sec (9.3-11.0)
[2020-10-30 01:11] LABS: Lipase 171 U/L (73-393); NT-proBNP 84 pg/mL (<300)
[2020-10-30 03:53] LABS: Troponin I < 0.05 ng/mL (<0.06)
== END 2020-10-30 04:50 | disposition home or self-care (01) ==
LOC: ER 04:42
PROVIDERS: Emergency Provider Student in an Organized Health Care Education/Training Program; PCP Internal Medicine
DX: R07.89 Other chest pain (principal); F41.0 Panic disorder [episodic paroxysmal anxiety]; I25.10 Atherosclerotic heart disease of native coronary artery without angina pectoris; Z95.5 Presence of coronary angioplasty implant and graft
CPT/HCPCS: 36415; 80053; 83690; 93005; 96374; 99285; 71045; 83880; 84484; 85025; 85610; 85730; 93010; J2405

== ENCOUNTER 2021-02-06 15:32 | Outpatient (REF) | payer MEDICARE, BC, SELFPAY ==
[2021-02-06 17:58] LABS: Hemoglobin A1C 5.7 % (<5.7)
[2021-02-06 18:01] LABS: Anion Gap 10.7 mmol/L (3-11); BUN 24 mg/dL (7-18); CO2 27.3 mmol/L (21.0-32.0); CREATININE 1.1 mg/dL (0.55-1.02); Calcium 8.9 mg/dL (8.5-10.1); Calculated LDL 113 mg/dL (<100); Chloride 101 mmol/L (98-107); Cholesterol 205 mg/dL (<200); Estimated GFR 49.69 (mL/min/1.73m2); Glucose 103 mg/dL (74-106); HDL Cholesterol 61 mg/dL (40-60); Potassium 4.2 mmol/L (3.5-5.1); Sodium 139 mmol/L (136-145); Triglyceride 155 mg/dL (<150)
== END 2021-02-06 15:33 | disposition home or self-care (01) ==
LOC: NCHCN 15:32
PROVIDERS: PCP Internal Medicine; Visit Provider Internal Medicine
DX: E78.5 Hyperlipidemia, unspecified (principal); I10 Essential (primary) hypertension; I25.10 Atherosclerotic heart disease of native coronary artery without angina pectoris; F41.9 Anxiety disorder, unspecified; R79.89 Other specified abnormal findings of blood chemistry
CPT/HCPCS: 80048; 80061; 83036

== ENCOUNTER → 2021-02-20 10:30 | Outpatient (BNVA) | payer MEDICARE, BC, SELFPAY | PROVIDERS: PCP Internal Medicine; Referring Provider Internal Medicine; Visit Provider Internal Medicine Cardiovascular Disease | DX: I10 Essential (primary) hypertension (principal); E78.5 Hyperlipidemia, unspecified; I25.10 Atherosclerotic heart disease of native coronary artery without angina pectoris; I25.2 Old myocardial infarction; F41.9 Anxiety disorder, unspecified; H34.8122 Central retinal vein occlusion, left eye, stable | CPT/HCPCS: 99204; 99215 ==

== ENCOUNTER 2021-02-26 18:57 | Emergency (ER) | payer MEDICARE, BC, SELFPAY ==
--- NOTE | 2021-02-26 19:00 | ED.GENADUL_ITS ---
Discharge Plan Disposition Patient Disposition: HOME Condition: Stable Discharge Details Clinical Impression: Dyspnea, Allergic reaction Primary Care Provider: Bal George ED Provider: Adeel Kemp [place] Meds and New Rx's Prescriptions: New prednisone 20 mg tablet See Rx Instructions .ROUTE .COMPLEX Qty: 12 RF: 0 Continued lisinopril-hydrochlorothiazide [Zestoretic] 1 EACH tablet 1 tab-cap PO DAILY RF: 0 aspirin 325 MG tablet 325 mg PO DAILY RF: 0 simvastatin [Zocor] 5 MG tablet 5 mg PO HS RF: 0 Daily Multiple 1 EACH tablet 1 tab-cap PO DAILY RF: 0 lorazepam 0.5 MG tablet 0.5 mg PO PRN PRNRF: 0 metoprolol succinate 25 MG tablet extended release 24 hr 25 mg PO DAILY RF: 0 meclizine [Antivert] 25 MG tablet 25 mg PO PRN PRNRF: 0 nitroglycerin [Nitrostat] 0.4 MG tablet, sublingual 1 tab Sublingual . DIRECTED PRNRF: 0 acetaminophen [Masophen] 500 MG tablet 500 mg PO Q4H PRN PRNQty: 30 RF: 0 Discharge Instructions Instructions: Dyspnea (ED), General Allergic Reaction (ED) Additional Instructions: Drink plenty of fluids and get plenty of rest. Your prescription has been sent electronically to your pharmacy. Call the pharmacy to make sure your prescription is ready before pickup. Take the prescription as directed. Take Benadryl as needed and directed for itching or rash. Use the albuterol inhaler as needed and directed for shortness of breath or wheezing. Follow-up with your primary care doctor in 1 week. Return to the emergency department with any worsening or new concerning symptoms. Referrals: Bal George MD [Primary Care Provider] - Discharge Data Discharge Physician: Essie Jose Medical Decision Making <Essie Jose DO - Last Filed: 02/26/21 20:00> 66-year-old female with a history of anxiety, fibromyalgia, hypertension, hyperlipidemia, GERD, coronary artery disease with coronary stent placement presents with sudden onset of shortness of breath while holding a cat prior to arrival. She denies any known history of allergies to cats. She denies any chest pain. Oxygen saturation 100% on room air. Lungs clear bilaterally. Normal oropharynx. Patient appears quite anxious. Considering patient's age and history, will also check screening labs, chest x- ray, EKG. Will place an IV, bolus IV fluids, IV Solu-Medrol, IV Benadryl and reassess. Labs reviewed. Normal white blood cell count. Chest x-ray reviewed and appears negative for acute disease. We will plan for repeat troponin EKG. Case endorsed to Dr. Kemp to follow-up on repeat troponin EKG and final disposition. If work-up negative and patient symptoms improved, can discharge to home with oral steroids. ECG Data Attestation: I personally reviewed and interpreted this ECG (s) as follows: Interpretation: Rate of 68, sinus, no acute ST elevation or depression. VT 168. QTc 442. <Adeel Kemp MD - Last Filed: 02/26/21 22:28> Patient signed out to me pending repeat EKG and troponin after presenting with allergic type reaction but given past medical history, Dr. Jose wish to rule out significant acute pathology. D-dimer is negative. Chest x-ray unremarkable. Other labs are unremarkable. Patient asymptomatic during my time. Repeat EKG and troponin remain unchanged. Patient be discharged home to follow-up with primary care next week as needed. Return to ED for any new or worsening symptoms Lab Data Lab results reviewed: Yes I reviewed the patient's lab results. ECG Data Attestation: I personally reviewed and interpreted this ECG (s) as follows: Prior ECG tracings: available for review Interpretation: see EKG HPI <Essie Jose DO - Last Filed: 02/26/21 20:00> General Mode of arrival: ambulatory . Date/Time Provider Initiated Documentation: 02/26/21 18:58 . Limitations to Documentation: no limitations . Information obtained by: patient . HPI Narrative: Patient is a 66-year-old female with a history of anxiety, fibromyalgia, hypertension, hyperlipidemia, coronary artery disease with coronary artery stent placement presents to the ED with sudden onset of shortness of breath after holding a cat prior to arrival. Patient states she has had many cats in the past and has not had an allergic reaction. She states she was holding a cat just prior to arrival because she was going to take at home and she suddenly felt like she could not breathe. She denies any fever, sore throat, chest pain, vomiting, abdominal pain. She states she has not taken any medication for pain. Patient has multiple food allergies including strawberry, mushrooms and shellfish but states she has not eaten anything that has caused an allergy in the past today. She denies any other new medications or exposures. Related Data Home Medications Medication Instructions Recorded Confirmed Daily Multiple 1 tab-cap PO DAILY tab-cap 02/03/13 02/26/21 aspirin 325 mg PO DAILY tab-cap 02/03/13 02/26/21 lisinopril-hydrochlorothiazide 1 tab-cap PO DAILY tab-cap 02/03/13 02/26/21 [Zestoretic] simvastatin [Zocor] 5 mg PO HS tab-cap 02/03/13 02/26/21 lorazepam 0.5 mg PO PRN PRN 02/17/13 02/26/21 metoprolol succinate 25 mg PO DAILY 02/17/13 02/26/21 meclizine [Antivert] 25 mg PO PRN PRN 05/21/15 02/26/21 nitroglycerin [Nitrostat] 1 tab SUBLINGUAL . DIRECTED PRN 04/09/18 02/26/21 acetaminophen [Masophen] 500 mg PO Q4H PRN PRN #30 tablet 04/18/18 02/26/21 prednisone See Rx Instructions .ROUTE 02/26/21 .COMPLEX #12 tab Previous Rx's Medication Instructions Recorded acetaminophen [Masophen] 500 mg PO Q4H PRN PRN #30 tablet 04/18/18 prednisone See Rx Instructions .ROUTE 02/26/21 .COMPLEX #12 tab Allergies Allergy/AdvReac Type Severity Reaction Status Date / Time shellfish derived Allergy Severe Anaphylaxsi Verified 02/26/21 19:04 s strawberry Allergy Severe Anaphalaxsi Verified 02/26/21 19:04 s adhesive Allergy Intermediate Skin Rash Verified 02/26/21 19:04 lanolin Allergy Intermediate Skin Rash Verified 02/26/21 19:04 benzoyl peroxide Allergy Mild Rash Verified 02/26/21 19:04 clobetasol Allergy Unknown Verified 02/26/21 19:04 aspartame AdvReac Mild Visual Verified 02/26/21 19:04 Disturbances nitrofurantoin AdvReac Mild Verified 02/26/21 19:04 polymyxin B AdvReac Mild Verified 02/26/21 19:04 triamcinolone AdvReac Mild Verified 02/26/21 19:04 wool Allergy Severe Hives Uncoded 02/26/21 19:04 Mushrooms AdvReac Mild Nausea Uncoded 02/26/21 19:04 General ILIA: 3 Review of Systems <Essie Jose DO - Last Filed: 02/26/21 20:00> All systems reviewed & are unremarkable except as noted in HPI and below Constitutional Constitutional: Reports as per HPI, Denies chills and Denies fever(s) Eyes Eyes: Denies blurry vision ENT Ears, Nose, Mouth, and Throat: Denies dizziness, Denies sore throat and Denies throat swelling Cardiovascular Cardiovascular: Denies chest pain and Reports dyspnea Respiratory Respiratory: Denies cough and Reports dyspnea Gastrointestinal Gastrointestinal: Denies abdominal pain, Denies diarrhea and Denies vomiting Genitourinary Genitourinary: Denies hematuria and Denies dysuria Musculoskeletal Musculoskeletal: Denies back pain and Denies numbness Integumentary/Breasts Skin/Breast: Denies lesions and Denies rash Neurologic Neurologic: Denies dizziness, Denies localized weakness and Denies numbness Allergic/Immunologic Allergic/Immunologic: Denies throat swelling PFSH <Essie Jose DO - Last Filed: 02/26/21 20:00> Medical History (Updated 02/26/21 @ 19:41 by Essie Jose DO) Anxiety Anxiety disorder Coronary artery disease Coronary artery disease Essential hypertension Fibromyalgia Fibromyalgia GERD (gastroesophageal reflux disease) History of myocardial infarction (02/03/13) HTN (hypertension) Hyperlipemia Hyperlipidemia Myocardial infarction Retinal vein occlusion of left eye Surgical History Cholecystectomy (04/16/18) H/O colonoscopy (11/06/18[facility], repeat 10 years. mg History of coronary artery stent placement History of esophagogastroduodenoscopy (EGD) (11/06/18) 11/06/18 EGD with LUCY Thomason, repeat as needed. mg Social History Smoking/Tobacco Use Status: Never Smoking risk assessment performed?: Yes Alcohol Intake: never Drug use: Never Substance use type: does not use Do you feel safe at home: Yes Do you feel safe in your relationship?: Yes Exam <Essie Jose DO - Last Filed: 02/26/21 20:00> Const General: cooperative, no acute distress and anxious Orientation: alert, awake and oriented x3 HENMT Head: normal to inspection Face and sinus: normal facial exam Eyes General: appearance normal, both eyes and all related structures Pupils: PERRL EOM: EOM intact bilaterally Neck Neck: normal visual inspection and No submandibular swelling Lymphatic: no lymphadenopathy noted Chest Chest: normal inspection of the chest and no tenderness Resp Effort & Inspection: normal respiratory effort and able to speak in complete sentences Auscultation: clear to auscultation bilaterally Cardio Rate: regular rate Rhythm: regular rhythm GI Inspection: normal to inspection Palpation: soft, not firm, not rigid and nontender Auscultation: normal bowel sounds Back/Spine/Pelvis Thoracic/Lumbar Spine: thoracic and lumbar spine normal to inspection Skin General skin exam: no rashes or lesions noted Neuro General: patient alert, patient awake and patient oriented x3 Cognition: normal cognition Speech: speech normal Motor: muscle tone normal throughout Sensory Exam: no sensory deficits noted Extrem General: normal to inspection, full ROM, capillary refill normal, no calf tenderness bilaterally and no edema Psych Appearance: grossly normal Mental Status: mental status grossly normal Speech and Movement: speech and movement normal Affect: normal affect Sign Out <Essie Jose DO - Last Filed: 02/26/21 20:00> Sign Out Data: Sign Out Comment: Follow-up on D-dimer, repeat troponin and EKG. If work-up negative and symptoms improve, will plan to discharge home on oral steroids. Last updated by Essie Jose DO at 02/26/21 19:59
[2021-02-26 19:01] VITALS: PULSE 77; RESP 18; TEMP 36.7; O2SAT 99
--- NOTE | 2021-02-26 19:15 | RT.EKG_ITS ---
APPROVED REPORT Exam: Resting ECG Reason for Exam: shortness of breath, r/o acute disease Patient Location: E HR:68 bpm ECG Measurements Heart Rate 68 AXIS AZ 168 P 48 QRSd 83 QRS -26 QT 416 T 17 QTc 442 Conclusion Sinus rhythm...normal P axis, V-rate 60- 99 Inferior infarct, old...Q >35mS, II III aVF
--- NOTE | 2021-02-26 19:15 | DI.RAD_ITS ---
Exam(s) XR CHEST 2V PA LATERAL EXAM: XR CHEST 2V PA LATERAL CLINICAL HISTORY: shortness of breath, r/o acute disease TECHNIQUE: 2D digital imaging was performed. COMPARISON: CR,XR XR PORTABLE CHEST AP from 10/30/2020 FINDINGS: MEDIASTINUM: Normal. HEART: Normal. PULMONARY VASCULATURE: Normal. LUNGS: Clear. PLEURAL SPACE: No pleural effusion or pneumothorax. BONE:Within normal limits for the patient's age. OTHER FINDINGS:Normal. IMPRESSION: No acute pulmonary findings. DATA REPOSITORY: RADIATION DOSE DELIVERED:
[2021-02-26] MEDS: methylPREDNISolone SUCC 125 MG VIAL IVP (19:25)
[2021-02-26] MEDS: diphenhydrAMINE 50 MG/ML VIAL IVP (19:25)
[2021-02-26] MEDS: Normal Saline 1,000 ML 1000 ML IV (19:25)
[2021-02-26 19:31] VITALS: BP 153/74; PULSE 71; O2SAT 98
[2021-02-26 19:31] LABS: Abs Immature Grans 0.02 10^3/uL (0.0-0.06); Absolute Basophil Count 0.06 10^3/uL (0.0-0.2); Absolute Eosinophil Count 0.12 10^3/uL (0.0-0.7); Absolute Lymphocyte Count 2.66 10^3/uL (1.2-3.4); Absolute Monocyte Count 0.51 10^3/uL (0.1-0.8); Absolute Neutrophil Count 5.54 10^3/uL (1.2-6.7); Basophils % 0.7; Eosinophils % 1.3; HCT 42.8 % (36.0-46.0); HGB 14.1 g/dL (11.2-15.7); Immature Grans % 0.2; Lymphocytes % 29.9; MCH 28.8 pg (27.0-33.0); MCHC 32.9 % (32.0-36.0); MCV 87.3 fL (80-95); MPV 11.9 fL (8.0-11.0); Monocytes % 5.7; Neutrophils % 62.2; Nucleated RBC 0 %; Platelet Count 241 10^3/uL (130-400); RDW 14.1 % (11.7-14.6); WBC 8.91 10^3/uL (4.4-10.8)
[2021-02-26 19:43] LABS: PTT Activated 25.7 sec (21.0-27.5); Prothrombin Time 10.4 sec (9.3-11.0)
--- NOTE | 2021-02-26 19:45 | RT.EKG_ITS ---
APPROVED REPORT Exam: Resting ECG Reason for Exam: shortness of breath Patient Location: E HR:69 bpm ECG Measurements Heart Rate 69 AXIS MA 177 P 48 QRSd 76 QRS -29 QT 412 T 8 QTc 441 Conclusion Sinus rhythm...normal P axis, V-rate 60- 99 Inferior infarct, old...Q >35mS, II III aVF There are no significant changes compared to prior EKG performed on 10/30/2020 at 03:08.
[2021-02-26 19:54] LABS: ALT 26 U/L (14-59); AST 20 U/L (15-37); Albumin 4.1 g/dL (3.4-5.0); Alkaline Phosphatase 92 U/L (46-116); Anion Gap 8.7 mmol/L (3-11); BUN 29 mg/dL (7-18); Bilirubin, Total 0.3 mg/dL (0.2-1.0); CO2 29.3 mmol/L (21.0-32.0); CREATININE 1.1 mg/dL (0.55-1.02); Calcium 9.5 mg/dL (8.5-10.1); Chloride 103 mmol/L (98-107); Estimated GFR 49.54 (mL/min/1.73m2); Glucose 104 mg/dL (74-106); Magnesium 2.5 mg/dL (1.8-2.4); Potassium 3.4 mmol/L (3.5-5.1); Sodium 141 mmol/L (136-145); Total Protein 8.2 g/dL (6.4-8.2)
[2021-02-26 19:57] LABS: Troponin I < 0.05 ng/mL (<0.06)
--- NOTE | 2021-02-26 20:02 | DI.VRAD_ITS ---
PROCEDURE INFORMATION: Exam: XR Chest Exam date and time: 02/26/2021 7:19 PM Age: 66 years old Clinical indication: Shortness of breath; Patient HX: SOB, R/O acute disease TECHNIQUE: Imaging protocol: XR of the chest. Views: 2 views. COMPARISON: CR XR PORTABLE CHEST AP 10/30/2020 12:10 AM FINDINGS: Lungs: Unremarkable. No consolidation. Pleural spaces: Unremarkable. No pleural effusion. No pneumothorax. Heart/Mediastinum: Unremarkable. No cardiomegaly. Bones/joints: No acute osseous abnormality. IMPRESSION: No acute findings. Dictated and Authenticated by: Cesar Ruby MD. Ordering:EVELIO Fountain MD
[2021-02-26 20:20] LABS: D-Dimer 408 ng/mlFEU (<500)
[2021-02-26 22:19] LABS: Troponin I < 0.05 ng/mL (<0.06)
[2021-02-26 22:40] VITALS: BP 126/79; PULSE 89; RESP 16; TEMP 36.9; O2SAT 98
== END 2021-02-26 22:40 | disposition home or self-care (01) ==
PROVIDERS: Physician Assistant; Emergency Provider Emergency Medicine; PCP Internal Medicine
DX: T78.49XA Other allergy, initial encounter (principal); R06.00 Dyspnea, unspecified
CPT/HCPCS: 36415; 80053; 93005; 96361; 96374; 96375; 99285; 71046; 83735; 84484; 85025; 85379; 85610; 85730; 93010; J1200; J2930

== ENCOUNTER 2021-08-01 14:34 | Observation (INO) | payer MEDICARE, BC, SELFPAY ==
[2021-08-01] VITALS (22 sets, daily range): BP systolic 121–142; BP diastolic 63–87; PULSE 73–82; RESP 7–16; TEMP 36.6–37.4; O2SAT 94–100
--- NOTE | 2021-08-01 14:30 | RT.EKG_ITS ---
APPROVED REPORT Exam: Resting ECG Reason for Exam: cva? Patient Location: E HR:83 bpm ECG Measurements Heart Rate 83 AXIS NC 168 P 68 QRSd 79 QRS -29 QT 385 T 27 QTc 454 Conclusion Sinus rhythm...normal P axis, V-rate 60- 99 Low voltage, precordial leads...precordial leads <1.0mV. Sinus. No STEMI. I have reviewed and interpreted ECG and agree with software generated interpretation.
--- NOTE | 2021-08-01 14:36 | W.ED.GENAD ---
Discharge Plan Disposition Patient Disposition: [facility] INPATIENT Condition: Stable Discharge Details Clinical Impression: TIA (transient ischemic attack), Blurred vision, right eye, Right facial numbness, Paresthesia of left arm, Paresthesia of right arm Admit Date/Time: 08/01/21 18:26 Admit Provider: Thai Hidalgo Attending Provider: Thai Hidalgo Primary Care Provider: Bal George ED Provider: Essie Jose Discharge Data Discharge Date/Time-TO BE ENTERED AT DEPARTURE: 08/01/21 19:23 Medical Decision Making 66-year-old female with a history of coronary artery disease, hypertension, hyperlipidemia, fibromyalgia, anxiety and left retinal vein occlusion presents for right eye blurry vision, right facial numbness and bilateral arm tingling and numbness, worse on the right side for the past two and half hours. EKG notes a rate of 83, sinus, no STEMI, nondiagnostic. Patient appears significantly anxious. Her vitals are within normal limits. She has diminished sensation to the right side of her face but no other focal deficitsl. Moving all extremities. No meningeal signs. Differential diagnosis includes TIA, CVA, electrolyte abnormality, arrhythmia, etc. Will place an IV, bolus IV fluids, screening labs, CTA head and neck, chest xray. Labs and imaging reviewed and unremarkable. Visual acuity OU corrected 20/100. Case discussed with [facility] neurology who recommended MRI brain and MRI cervical spine with admission overnight for telemetry monitoring. Case discussed with [facility] ophthalmology Dr. Coley regarding her previous history of left retinal vein occlusion and patient's concern for potential right retinal vein occlusion. Unable to perform a formal retinal exam at bedside due to lack of dilation and resources. [facility] ophthalmology does not see any indication for urgent transfer and that her exam with ophthalmology can wait for several days or up to a week. She states she has an appointment with a retinal specialist at [facility] tomorrow. If she is discharged tomorrow, [facility] ophthalmology can see her in the afternoon or morning. Case discussed with hospitalist who accepts patient for admission. Medical Records Medical records reviewed: Yes I reviewed the patient's medical records. Imaging Data Radiologic Study: Radiologist's impression: XR CHEST 2V PA LATERAL CLINICAL HISTORY: possible cva, r/o acute disease TECHNIQUE: 2D digital imaging was performed. COMPARISON: CR,XR XR CHEST 2V PA LATERAL from 02/26/2021 FINDINGS: The heart is not enlarged. The lungs are clear and well expanded. No pleural effusion seen. Mediastinal contours appear intact. IMPRESSION: Normal chest. CT BRAIN NECK CTA CLINICAL HISTORY: R eye blurry vision, R facial numbness. TECHNIQUE: Imaging Protocol: Axial CT angiography was performed with multi-slice acquisition and multi-planar and/or 3D reconstructions. CONTRAST MATERIAL: Intravenous: Omnipaque 350 Contrast volume:structured data in ml COMPARISON: CT CT CHEST PE CTA from 03/01/2019 FINDINGS: CT angiography of the cervical cranial region was performed according to the usual protocol with intravenous infusion of 85 cc of Omnipaque 350.. Initial noncontrast scanning of the head is unremarkable. Visualized lung apices are clear. Visualized portions of thoracic aorta and pulmonary arterial circulation are unremarkable. There is no evidence of a cervical mass or adenopathy. The tracheal laryngeal structures appear intact. The common, internal, and external carotid arteries are within normal limits in the cervical region with no evidence of aneurysm, stenosis, or dissection. The vertebral arteries are unremarkable in appearance in the cervical region with no evidence of aneurysm, stenosis, or dissection. Intracranial portions of the internal carotid arteries appear normal with no evidence of aneurysm, stenosis, or dissection. Intracranial vertebral arteries and basilar artery appear normal with no evidence of aneurysm, stenosis or dissection. No aneurysm identified in the region of the [id number]. The anterior, middle, and posterior cerebral arteries and major branches appear intact with no evidence of aneurysm, stenosis, or dissection. No enhancing brain lesion identified on 5 minutes delayed images.. IMPRESSION: Negative CT angiography of the cervical cranial region. Lab Data Lab results reviewed: Yes I reviewed the patient's lab results. Labs: Laboratory Tests Range/Units 08/01/21 08/01/21 08/01/21 14:48 15:05 15:05 WBC (4.4-10.8) 10^3/uL 8.03 RBC (3.93-5.22) 10^6/uL 4.86 Hgb (11.2-15.7) g/dL 13.6 Hct (36.0-46.0) % 42.0 MCV (80-95) fL 86.4 MCH (27.0-33.0) pg 28.0 MCHC (32.0-36.0) % 32.4 RDW (11.7-14.6) % 13.9 Plt Count (130-400) 10^3/uL 205 MPV (8.0-11.0) fL 11.8 H Immature Gran % 0.1 Neutrophils % 74.6 Lymphocytes % 19.4 Monocytes % 5.1 Eosinophils % 0.4 Basophils % 0.4 Nucleated RBC % % 0 Absolute Neutrophils (1.2-6.7) 10^3/uL 5.99 Absolute Lymphocytes (1.2-3.4) 10^3/uL 1.56 Absolute Monocytes (0.1-0.8) 10^3/uL 0.41 Absolute Eosinophils (0.0-0.7) 10^3/uL 0.03 Absolute Basophils (0.0-0.2) 10^3/uL 0.03 Sodium (136-145) mmol/L 140 Potassium (3.5-5.1) mmol/L 3.5 Chloride (98-107) mmol/L 101 Carbon Dioxide (21.0-32.0) mmol/L 29.5 Anion Gap (3-11) mmol/L 9.5 BUN (7-18) mg/dL 28 H Creatinine (0.55-1.02) mg/dL 1.0 Estimated GFR/1.73 m2 (mL/min/1.73m2) 55.30 Glucose (74-106) mg/dL 107 H Calcium (8.5-10.1) mg/dL 9.4 Magnesium (1.8-2.4) mg/dL 2.2 Total Bilirubin (0.2-1.0) mg/dL 0.4 AST (15-37) U/L 20 ALT (14-59) U/L 26 Alkaline Phosphatase (46-116) U/L 96 Troponin I (<0.06) ng/mL < 0.05 Total Protein (6.4-8.2) g/dL 8.0 Albumin (3.4-5.0) g/dL 4.2 Urine Color (Yellow) Yellow Urine Clarity (Clear) Clear Urine pH (5-8) 7.0 Ur Specific [employer] (1.005-1.025) 1.020 Urine Protein (Negative) mg/dL Negative Urine Ketones (Negative) mg/dL Negative Urine Blood (Negative) Negative Urine Nitrite (Negative) Negative Urine Bilirubin (Negative) Negative Urine Urobilinogen (Up TO 0.2) EU/dL 0.2 Ur Leukocyte Esterase (Negative) Negative Urine Glucose (Negative) mg/dL Negative ECG Data Attestation: I personally reviewed and interpreted this ECG (s) as follows: Interpretation: Rate of 83, sinus, no acute ST elevation or depression. [place] 168. QRS 79. QTc 454. HPI General Mode of arrival: ambulatory. Date/Time Provider Initiated Documentation: 08/01/21 14:35. Limitations to Documentation: no limitations. Information obtained by: patient. HPI Narrative: Pt is 66yo F who presents to the ED w/ a c/o right eye blurry vision and right sided facial numbness and b/l arm numbness and tingling, worse on the right side for the past few hours. Pt states she was working outside when she noted that the vision in her right eye seemed distorted . She states when she was looking at her cell phone the letters looked twisted and distorted. She states she had similar symptoms when she had a history of a left retinal vein occlusion and she is concerned about this. She states 30 minutes after her right eye blurry vision she developed right-sided facial tingling and numbness and then 30 minutes after this developed bilateral arm tingling and numbness which is worse on the right side. She denies headache, dizziness, slurred speech, chest pain, shortness of breath, abdominal pain, leg weakness or numbness. Related Data Home Medications Medication Instructions Recorded Confirmed Daily Multiple 1 tab-cap PO DAILY tab-cap 02/03/13 08/01/21 aspirin 325 mg PO DAILY tab-cap 02/03/13 08/01/21 lisinopril-hydrochlorothiazide 1 tab-cap PO DAILY tab-cap 02/03/13 08/01/21 [Zestoretic] simvastatin [Zocor] 5 mg PO HS tab-cap 02/03/13 08/01/21 lorazepam 0.5 mg PO PRN PRN 02/17/13 08/01/21 metoprolol succinate 25 mg PO DAILY 02/17/13 08/01/21 meclizine [Antivert] 25 mg PO PRN PRN 05/21/15 08/01/21 nitroglycerin [Nitrostat] 1 tab SUBLINGUAL . DIRECTED PRN 04/09/18 02/26/21 acetaminophen [Masophen] 500 mg PO Q4H PRN PRN #30 tablet 04/18/18 02/26/21 prednisone See Rx Instructions .ROUTE 02/26/21 .COMPLEX #12 tab Previous Rx's Medication Instructions Recorded acetaminophen [Masophen] 500 mg PO Q4H PRN PRN #30 tablet 04/18/18 prednisone See Rx Instructions .ROUTE 02/26/21 .COMPLEX #12 tab Allergies Allergy/AdvReac Type Severity Reaction Status Date / Time shellfish derived Allergy Severe Anaphylaxsi Verified 02/26/21 19:04 s strawberry Allergy Severe Anaphalaxsi Verified 02/26/21 19:04 s adhesive Allergy Intermediate Skin Rash Verified 02/26/21 19:04 lanolin Allergy Intermediate Skin Rash Verified 02/26/21 19:04 benzoyl peroxide Allergy Mild Rash Verified 02/26/21 19:04 clobetasol Allergy Unknown Verified 02/26/21 19:04 aspartame AdvReac Mild Visual Verified 02/26/21 19:04 Disturbances nitrofurantoin AdvReac Mild Verified 02/26/21 19:04 polymyxin B AdvReac Mild Verified 02/26/21 19:04 triamcinolone AdvReac Mild Verified 02/26/21 19:04 wool Allergy Severe Hives Uncoded 02/26/21 19:04 Mushrooms AdvReac Mild Nausea Uncoded 02/26/21 19:04 General ILIA: 3 Review of Systems All systems reviewed & are unremarkable except as noted in HPI and below Constitutional Constitutional: Reports as per HPI, Denies chills and Denies fever(s) Eyes Eyes: Denies blurry vision and Reports loss of vision ENT Ears, Nose, Mouth, and Throat: Denies dizziness, Denies sore throat and Denies throat swelling Cardiovascular Cardiovascular: Denies chest pain and Denies dyspnea Respiratory Respiratory: Denies cough and Denies dyspnea Gastrointestinal Gastrointestinal: Denies abdominal pain, Denies diarrhea and Denies vomiting Genitourinary Genitourinary: Denies hematuria and Denies dysuria Musculoskeletal Musculoskeletal: Denies back pain and Reports numbness Integumentary/Breasts Skin/Breast: Denies lesions and Denies rash Neurologic Neurologic: Denies dizziness, Denies localized weakness, Reports loss of vision and Reports numbness Allergic/Immunologic Allergic/Immunologic: Denies throat swelling [facility] Medical History (Updated 08/01/21 @ 21:03 by Thai Hidalgo MD) Anxiety Anxiety disorder Coronary artery disease Coronary artery disease Essential hypertension Fibromyalgia Fibromyalgia GERD (gastroesophageal reflux disease) History of myocardial infarction (02/03/13) HTN (hypertension) Hyperlipemia Hyperlipidemia Myocardial infarction Retinal vein occlusion of left eye Surgical History Cholecystectomy (04/16/18) H/O colonoscopy (11/06/18) 11/06/18 LUCY Brannon, hyperplastic polyp, repeat 10 years. mg History of coronary artery stent placement History of esophagogastroduodenoscopy (EGD) (11/06/18) 11/06/18 EGD with LUCY Thomason, repeat as needed. mg Social History Smoking/Tobacco Use Status: Never Smoking risk assessment performed?: Yes Alcohol Intake: never Drug use: Never Substance use type: does not use Do you feel safe at home: Yes Do you feel safe in your relationship?: Yes Exam Const General: cooperative, no acute distress and anxious Orientation: alert, awake and oriented x3 HENMT Head: normal to inspection Face and sinus: normal facial exam Eyes General: appearance normal, both eyes and all related structures Pupils: PERRL EOM: EOM intact bilaterally Neck Neck: normal visual inspection and No submandibular swelling Lymphatic: no lymphadenopathy noted Chest Chest: normal inspection of the chest and no tenderness Resp Effort & Inspection: normal respiratory effort and able to speak in complete sentences Auscultation: clear to auscultation bilaterally Cardio Rate: regular rate Rhythm: regular rhythm GI Inspection: normal to inspection Palpation: soft, not firm, not rigid and nontender Auscultation: normal bowel sounds Skin General skin exam: no rashes or lesions noted Neuro General: patient alert, patient awake, patient oriented x3, moves all extremities, no meningeal signs and no focal motor deficits Cranial Nerves: other (Altered sensation light touch R forehead/mid face, otherwise CN intact b/l) Cognition: normal cognition Speech: speech normal Motor: muscle tone normal throughout, strength 5/5 throughout and no pronator drift Sensory Exam: no sensory deficits noted Extrem General: normal to inspection, full ROM, capillary refill normal, no calf tenderness bilaterally and no edema Psych Appearance: grossly normal Mental Status: mental status grossly normal Speech and Movement: speech and movement normal Affect: normal affect
[2021-08-01 15:04] LABS: Bilirubin Negative (Negative); Blood Negative (Negative); Clarity Clear (Clear); Glucose Negative (Negative); Ketones Negative (Negative); Leukocyte Esterase Negative (Negative); Nitrite Negative (Negative); Urobilinogen 0.2 EU/dL (Up TO 0.2)
[2021-08-01] MEDS: Normal Saline - Diluent 50 ML VIAL IV (15:26)
[2021-08-01] MEDS: Omnipaque 350 MG/ML 100 ML BTL IJ (15:26)
[2021-08-01 15:29] LABS: Abs Immature Grans 0.01 10^3/uL (0.0-0.06); Absolute Basophil Count 0.03 10^3/uL (0.0-0.2); Absolute Eosinophil Count 0.03 10^3/uL (0.0-0.7); Absolute Lymphocyte Count 1.56 10^3/uL (1.2-3.4); Absolute Monocyte Count 0.41 10^3/uL (0.1-0.8); Absolute Neutrophil Count 5.99 10^3/uL (1.2-6.7); Basophils % 0.4; Eosinophils % 0.4; HGB 13.6 g/dL (11.2-15.7); Immature Grans % 0.1; Lymphocytes % 19.4; MCHC 32.4 % (32.0-36.0); MCV 86.4 fL (80-95); MPV 11.8 fL (8.0-11.0); Monocytes % 5.1; Neutrophils % 74.6; Nucleated RBC 0 %; Platelet Count 205 10^3/uL (130-400); RBC 4.86 10^6/uL (3.93-5.22); RDW 13.9 % (11.7-14.6); RDW-SD 43.8 fL; WBC 8.03 10^3/uL (4.4-10.8)
--- NOTE | 2021-08-01 15:32 | DI.RAD_ITS ---
Exam(s) XR CHEST 2V PA LATERAL EXAM: XR CHEST 2V PA LATERAL CLINICAL HISTORY: possible cva, r/o acute disease TECHNIQUE: 2D digital imaging was performed. COMPARISON: CR,XR XR CHEST 2V PA LATERAL from 02/26/2021 FINDINGS: The heart is not enlarged. The lungs are clear and well expanded. No pleural effusion seen. Mediastin al contours appear intact. IMPRESSION: Normal chest. RADIATION DOSE DELIVERED: Total DLP
--- NOTE | 2021-08-01 15:35 | DI.CT_ITS ---
Exam(s) CT BRAIN NECK CTA EXAM: CT BRAIN NECK CTA CLINICAL HISTORY: R eye blurry vision, R facial numbness. TECHNIQUE: Imaging Protocol: Axial CT angiography was performed with multi-slice acquisition and mu lti-planar and/or 3D reconstructions. CONTRAST MATERIAL: Intravenous: Omnipaque 350 Contrast volume:structured data in ml COMPARISON: CT CT CHEST PE CTA from 03/01/2019 FINDINGS: CT angiography of the cervical cranial region was performed according to the usual protocol with intr avenous infusion of 85 cc of Omnipaque 350.. Initial noncontrast scanning of the head is unremarkable. Visualized lung apices are clear. Visualized portions of thoracic aorta and pulmonary arterial circul ation are unremarkable. There is no evidence of a cervical mass or adenopathy. The tracheal laryngeal structures appear intact. The common, internal, and external carotid arteries are within normal limits in the cervical region w ith no evidence of aneurysm, stenosis, or dissection. The vertebral arteries are unremarkable in appearance in the cervical region with no evidence of aneu rysm, stenosis, or dissection. Intracranial portions of the internal carotid arteries appear normal with no evidence of aneurysm, st enosis, or dissection. Intracranial vertebral arteries and basilar artery appear normal with no evidence of aneurysm, stenos is or dissection. No aneurysm identified in the region of the [id number]. The anterior, middle, and posterior cer ebral arteries and major branches appear intact with no evidence of aneurysm, stenosis, or dissection . No enhancing brain lesion identified on 5 minutes delayed images.. IMPRESSION: Negative CT angiography of the cervical cranial region. RADIATION DOSE DELIVERED: 2,264.77mGy.cmTotal DLP 2,264.77mGy.cm Total DLP 45.25mGy CTDIvol DATA REPOSITORY: All CT scans at this facility are submitted to the National Radiology Data Registry (NRDR) Dose Index Registry (DIR) with the [employer] ([employer]). RADIATION OPTIMIZATION: All CT scans at this facility use at least one of these dose optimization te chniques: automated exposure control; mA and/or kV adjustment per patient size (includes targeted exa ms where dose is matched to clinical indication); or iterative reconstruction.
[2021-08-01 15:52] LABS: ALT 26 U/L (14-59); AST 20 U/L (15-37); Albumin 4.2 g/dL (3.4-5.0); Alkaline Phosphatase 96 U/L (46-116); Anion Gap 9.5 mmol/L (3-11); BUN 28 mg/dL (7-18); Bilirubin, Total 0.4 mg/dL (0.2-1.0); CO2 29.5 mmol/L (21.0-32.0); Calcium 9.4 mg/dL (8.5-10.1); Chloride 101 mmol/L (98-107); Glucose 107 mg/dL (74-106); Magnesium 2.2 mg/dL (1.8-2.4); Potassium 3.5 mmol/L (3.5-5.1); Sodium 140 mmol/L (136-145)
[2021-08-01 16:00] LABS: Troponin I < 0.05 ng/mL (<0.06)
[2021-08-01] MEDS: Normal Saline 1,000 ML 1000 ML IV (16:18)
[2021-08-01 18:38] LABS: Source Nasal/Nares
--- NOTE | 2021-08-01 20:46 | W.PM.HP.N ---
Date of service: 08/01/21 Time of Service: 20:47 Assessment and Plan Assessment and plan (1) Paresthesia: Status: Acute Assessment and plan: Improving numbness sensation of right side of face and arms. No motor deficits noted. CT head negative. CTA neck negative. MRI brain ordered. Continue ASA 325mg daily (dose recommended by her retinal specialist per pt). She is on a small dose of simvastatin; 5mg HS. Lipid panel in AM. Neurology consult. Telemetry. Echocardiogram. (2) Visual distortion: Status: Acute Assessment and plan: Right eye visual distortions; similar to what she experienced with the left retinal vein occlusion. Now has visual field cuts in the left eye as a residual. Ophthalmology appt was scheduled for tomorrow with [place] [facility] Since that appt will not likely be possible, they said she could have an appt afternoon; will need to call and verify. ASA 325mg daily. (3) Retinal vein occlusion of left eye: Status: Chronic Assessment and plan: See above. (4) Anxiety disorder: Status: Chronic Assessment and plan: Ativan prn. Very anxious currently; tearful at times. (5) Essential hypertension: Status: Chronic Assessment and plan: Cont BB and ACEI/HCTZ combo. Monitor. (6) Hyperlipidemia: Status: Chronic Assessment and plan: Lipid panel in AM Simvastatin 5mg HS (7) Coronary artery disease: Status: Chronic Assessment and plan: Cont ASA, BB and statin. No c/o CP. History of Present Illness History of Present Illness Chief Complaint: Visual changes, facial numbness, arm tinglin and numbness Narrative: This is a 66 yo female with a PMH of CAD, HTN, HLD, fibromyalgia, anxiety, left retinal vein occlusion. She presented with c/o distorted vision in the R eye, right sided facial numbness/tingling and bilateral arm numbness/tingling R>L. Onset was at appx noon on the day of admission. CT brain, CTA neck w/o acute findings. EKG normal. Lab unremarkable. Vital signs unremarkable. ED provider spoke with [facility] neurology. They recommended MRI brain and MRI C spine with overnight telemetry monitoring. Her case was also discussed with [facility] ophthalmology; she has an appt with a retina specialist at [facility] on the following day, 08/02. Pt stated the distorted vision in the right eye; letters looking longer or shorter and objects appearing ill-shaped, was similar to her left retinal vein occlusion. Ophthalmology related that there was no indication for ugent transfer and that her evaluation by ophthalmology could wait several days or up to a week. She could be seen at [facility] [place] this coming afternoon. Review of Systems All systems reviewed & are unremarkable except as noted in HPI and below [facility] Medical History (Updated 08/01/21 @ 21:03 by Thai Hidalgo MD) Anxiety Anxiety disorder Coronary artery disease Coronary artery disease Essential hypertension Fibromyalgia Fibromyalgia GERD (gastroesophageal reflux disease) History of myocardial infarction (02/03/13) HTN (hypertension) Hyperlipemia Hyperlipidemia Myocardial infarction Retinal vein occlusion of left eye Surgical History Cholecystectomy (04/16/18) H/O colon[facility] (11/06/18[facility] 10 [facility]. mg History of coronary artery stent placement History of esophagogastroduodenoscopy (EGD) (11/06/18) 11/06/18 EGD with LUCY Thomason, repeat as needed. mg Social History Smoking/Tobacco Use Status: Never Smoking risk assessment performed?: Yes Alcohol Intake: never Drug use: Never Substance use type: does not use Do you feel safe at home: Yes Do you feel safe in your relationship?: Yes Meds Allergies and Home Medications Allergies Allergy/AdvReac Type Severity Reaction Status Date / Time shellfish derived Allergy Severe Anaphylaxsi Verified 02/26/21 19:04 s strawberry Allergy Severe Anaphalaxsi Verified 02/26/21 19:04 s adhesive Allergy Intermediate Skin Rash Verified 02/26/21 19:04 lanolin Allergy Intermediate Skin Rash Verified 02/26/21 19:04 benzoyl peroxide Allergy Mild Rash Verified 02/26/21 19:04 clobetasol Allergy Unknown Verified 02/26/21 19:04 aspartame AdvReac Mild Visual Verified 02/26/21 19:04 Disturbances nitrofurantoin AdvReac Mild Verified 02/26/21 19:04 polymyxin B AdvReac Mild Verified 02/26/21 19:04 triamcinolone AdvReac Mild Verified 02/26/21 19:04 wool Allergy Severe Hives Uncoded 02/26/21 19:04 Mushrooms AdvReac Mild Nausea Uncoded 02/26/21 19:04 Home Medications Medication Instructions Recorded Confirmed Type Daily Multiple 1 tab-cap PO DAILY tab-cap 02/03/13 08/01/21 History aspirin 325 mg PO DAILY tab-cap 02/03/13 08/01/21 History lisinopril-hydrochlorothiazide 1 tab-cap PO DAILY tab-cap 02/03/13 08/01/21 History [Zestoretic] simvastatin [Zocor] 5 mg PO HS tab-cap 02/03/13 08/01/21 History lorazepam 0.5 mg PO PRN PRN 02/17/13 08/01/21 History metoprolol succinate 25 mg PO DAILY 02/17/13 08/01/21 History meclizine [Antivert] 25 mg PO PRN PRN 05/21/15 08/01/21 History nitroglycerin [Nitrostat] 1 tab SUBLINGUAL . DIRECTED PRN 04/09/18 02/26/21 History acetaminophen [Masophen] 500 mg PO Q4H PRN PRN #30 tablet 04/18/18 02/26/21 Rx prednisone See Rx Instructions .ROUTE 02/26/21 Rx .COMPLEX #12 tab Exam Const General: cooperative and no acute distress Nutritional Appearance: obese Orientation: alert and oriented x3 HENMT Head: normocephalic and atraumatic Ears: EAC abnormal (left cerumen impaction.) Eyes General: appearance normal, both eyes and all related structures Sclera: sclerae normal Pupils: PERRL Neck Neck: full ROM and no JVD Resp Effort & Inspection: normal respiratory effort Auscultation: clear to auscultation bilaterally Cardio Rate: regular rate Rhythm: regular rhythm Heart Sounds: S1 normal and S2 normal GI Palpation: soft and nontender Auscultation: normal bowel sounds Neuro General: no focal motor deficits Cranial Nerves: EOM intact bilaterally and facial strength normal Cognition: normal cognition Speech: speech normal Gait: normal gait Sensory Exam: other (sense of diminished sensation to touch on R side of face.) Psych Speech and Movement: speech and movement normal Mood: anxious mood Affect: sad and anxious affect Results Labs Result diagrams: 08/01/21 15:05 08/01/21 15:05 Labs: Laboratory Results - last 24 hr 08/01/21 08/01/21 08/01/21 14:48 15:05 15:05 WBC 8.03 RBC 4.86 Hgb 13.6 Hct 42.0 MCV 86.4 MCH 28.0 MCHC 32.4 RDW 13.9 Plt Count 205 MPV 11.8 H Immature Gran % 0.1 Neutrophils % 74.6 Lymphocytes % 19.4 Monocytes % 5.1 Eosinophils % 0.4 Basophils % 0.4 Nucleated RBC % 0 Absolute Neutrophils 5.99 Absolute Lymphocytes 1.56 Absolute Monocytes 0.41 Absolute Eosinophils 0.03 Absolute Basophils 0.03 Sodium 140 Potassium 3.5 Chloride 101 Carbon Dioxide 29.5 Anion Gap 9.5 BUN 28 H Creatinine 1.0 Estimated GFR/1.73 m2 55.30 Glucose 107 H Calcium 9.4 Magnesium 2.2 Total Bilirubin 0.4 AST 20 ALT 26 Alkaline Phosphatase 96 Troponin I < 0.05 Total Protein 8.0 Albumin 4.2 Urine Color Yellow Urine Clarity Clear Urine pH 7.0 Ur Specific Bock 1.020 Urine Protein Negative Urine Ketones Negative Urine Blood Negative Urine Nitrite Negative Urine Bilirubin Negative Urine Urobilinogen 0.2 Ur Leukocyte Esterase Negative Urine Glucose Negative COVID-19 Source 08/01/21 18:30 WBC RBC Hgb Hct MCV MCH MCHC RDW Plt Count MPV Immature Gran % Neutrophils % Lymphocytes % Monocytes % Eosinophils % Basophils % Nucleated RBC % Absolute Neutrophils Absolute Lymphocytes Absolute Monocytes Absolute Eosinophils Absolute Basophils Sodium Potassium Chloride Carbon Dioxide Anion Gap BUN Creatinine Estimated GFR/1.73 m2 Glucose Calcium Magnesium Total Bilirubin AST ALT Alkaline Phosphatase Troponin I Total Protein Albumin Urine Color Urine Clarity Urine pH Ur Specific Bock Urine Protein Urine Ketones Urine Blood Urine Nitrite Urine Bilirubin Urine Urobilinogen Ur Leukocyte Esterase Urine Glucose COVID-19 Source Nasal/Nares Last Vital Signs Temp 37.4 C 08/01/21 19:53 Pulse 82 08/01/21 19:53 Resp 16 08/01/21 19:53 BP 142/87 H 08/01/21 19:53 Pulse Ox 98 08/01/21 19:53
[2021-08-01 21:46] LABS: COVID-19 PCR Negative (Negative)
[2021-08-01] MEDS: LORazepam 0.5 MG TAB PO (22:03)
[2021-08-01] MEDS: Simvastatin 10 MG TAB 5 MG PO (22:03)
[2021-08-01] MEDS: Acetaminophen 325 MG TAB PO (22:05)
[2021-08-01] MEDS: Carbamide Peroxide 15 ML BTL AU (22:09)
[2021-08-02 01:06] VITALS: BP 137/79; PULSE 79; RESP 19; TEMP 36.4; O2SAT 99
[2021-08-02 07:14] LABS: Anion Gap 7.1 mmol/L (3-11); BUN 23 mg/dL (7-18); CO2 28.9 mmol/L (21.0-32.0); Calcium 8.7 mg/dL (8.5-10.1); Chloride 108 mmol/L (98-107); Glucose 86 mg/dL (74-106); Potassium 3.7 mmol/L (3.5-5.1); Sodium 144 mmol/L (136-145)
[2021-08-02 07:28] LABS: Calculated LDL 98 mg/dL (<100); Cholesterol 175 mg/dL (<200); HDL Cholesterol 60 mg/dL (40-60); Triglyceride 85 mg/dL (<150)
[2021-08-02] MEDS: Aspirin 325 MG TAB PO (07:53)
[2021-08-02] MEDS: hydroCHLOROthiazide 12.5 MG TAB PO (07:53)
[2021-08-02] MEDS: Lisinopril 20 MG TAB PO (07:54)
[2021-08-02] MEDS: Carbamide Peroxide 15 ML BTL AU (07:54)
[2021-08-02] MEDS: Multivitamin TAB 1 TAB PO (07:54)
[2021-08-02] MEDS: Metoprolol CR 25 MG TABCR PO (07:54)
[2021-08-02 07:59] VITALS: BP 120/77; PULSE 71; RESP 18; TEMP 36.5; O2SAT 99
[2021-08-02] MEDS: LORazepam 0.5 MG TAB PO (08:17)
[2021-08-02] MEDS: Normal Saline Flush 10 ML SYR IVP (08:35)
--- NOTE | 2021-08-02 09:15 | DI.MRI_ITS ---
Exam(s) MR CERVICAL SPINE WO EXAM: MR CERVICAL SPINE WO CLINICAL HISTORY: numbness in both arms TECHNIQUE: Multiplanar multisequence MRI of the cervical spine was performed without intravenous con trast. COMPARISON: MR MR BRAIN WO/W from 08/02/2021 MR MR BRAIN WO/W from 08/02/2021 FINDINGS: CERVICOMEDULLARY JUNCTION: Intact with no evidence of cerebellar tonsillar ectopia. No obvious abnor mality of the odontoid process. No evidence of Chiari 1 malformation. There is some exaggeration of the cervical curvature. CERVICAL SPINAL CORD: There is no abnormal signal in the cervical spinal cord and no evidence of foca l cord atrophy nor focal cord swelling. OSSEOUS:There are no cervical fractures evident. No significant osseous lesions in the cervical vert ebrae. INDIVIDUAL LEVELS: C2-3: No disc herniation nor central canal stenosis. No foraminal stenosis. Mild facet degenerative changes on the left side. C3-4: No disc herniation nor central canal stenosis.Mild facet arthropathy no foraminal stenosis. C4-5: No disc herniation nor central canal stenosis.Mild bilateral facet arthropathy. Mild bilateral foraminal stenosis. C5-6: Chronic decreased disc height and signal. Right-sided Luschka joint osteophytes with an elemen t of foraminal stenosis. There is over, no dominant disc herniation. Central canal dimensions are w ithin normal limits. C6-7: This level exhibits relatively preserved disc height. Mild annular bulging but without a domin ant disc herniation. Central canal dimensions are within normal limits. Mild facet degenerative keagan nges. No obvious foraminal stenosis. C7-T1: No disc herniation nor central canal stenosis. No facet arthropathy.No foraminal stenosis. IMPRESSION: 1. Exaggerated cervical curvature is noted, not associated with listhesis nor central canal stenosis. 2. There is no evidence of distinct focal disc herniation. At C5-6 level there right-sided Luschka j oint osteophytes causing an element of foraminal stenosis. 3. Multilevel mild-moderate facet arthropathy with mild multilevel foraminal narrowing. No significa nt central canal stenosis. 4. No abnormal signal in the cervical spinal cord. No evidence of focal cord swelling nor focal cor d atrophy. DATA REPOSITORY:
[2021-08-02] MEDS: Gadoterate meglumine 20 ML VIAL 18 ML IVP (09:22)
--- NOTE | 2021-08-02 10:00 | DI.MRI_ITS ---
Exam(s) MR BRAIN WO/W EXAM: MR BRAIN WO/W CLINICAL HISTORY: Stroke symptoms TECHNIQUE: Multiplanar multisequence MRI of the brain was performed. Both noninfused and contrast i nfused sequences were performed. IV Contrast injected was cc Dotarem. COMPARISON: CT CT BRAIN NECK CTA from 08/01/[address] BRAIN NECK CTA from 08/01/2021 FINDINGS: CEREBRAL PARENCHYMA: No evidence of intracranial hemorrhage, mass effect nor shift of midline structu re. No extraaxial fluid collections. Ventricles are not enlarged nor shifted. There is no significant focal signal abnormality in the cerebellar hemispheres nor within the dany, m idbrain, and thalami. There are multiple small sub cm foci of signal abnormality in the Isabell and supraventricular white mat ter, not associated with hemorrhage, surrounding edema, enhancement, no restricted diffusion on DWI. There are no ring enhancing lesions in the brain and there is no abnormal meningeal enhancement, foc al nor diffuse. PITUITARY GLAND: No mass nor parasellar abnormality. No obvious abnormality in the cavernous sinuses. FLOW VOIDS: The expected flow void are noted. No evidence of obvious aneurysm nor obvious vascular ma lformation. PARANASAL SINUSES: The visualized paranasal sinuses appear unremarkable. ORBITS: No obvious abnormal findings. IMPRESSION: 1. There multiple small sub cm foci of white matter signal abnormality in the Isabell and supraventricul ar white matter, consistent with small vessel white matter ischemic sequelae. However, there is no e vidence of acute ischemic event. No evidence of intracranial hemorrhage. No ring enhancing lesions in the brain and no abnormal meningeal enhancement. DATA REPOSITORY:
--- NOTE | 2021-08-02 10:09 | INITIAL_ITS ---
- If Service Date Differs Date of service: 08/02/21 Time of Service: 10:10 Care Management Initial Assess REASON FOR HOSPITALIZATION:: Paresthrsia PAST MEDICAL HISTORY/PAST SURGICAL HISTORY:: Medical History (Updated 08/01/21 @ 21:03 by Thai Hidalgo MD). Anxiety. Anxiety disorder. Coronary artery disease. Coronary artery disease. Essential hypertension. Fibromyalgia. Fibromyalgia. GERD (gastroesophageal reflux disease). History of myocardial infarction (02/03/13). HTN (hypertension). Hyperlipemia. Hyperlipidemia. Myocardial infarction. Retinal vein occlusion of left eye. Surgical History . Cholecystectomy (04/16/18). H/O colonoscopy (11/06/18). [facility]. mg. History of coronary artery stent placement. History of esophagogastroduodenoscopy (EGD) (11/06/18). 11/06/[address] Thomas Talbot [facility], repeat as needed. mg PREVIOUS FUNCTIONAL STATUS/SOCIAL/FAMILY SUPPORTS:: Diana lives alone in a single family home in [facility]. She lost her last year. Diana has 2 children who live out of the area but who are supportive. Diana uses a walking stick (white cane) for the visually impaired. She is independent at [facility] and does not receive any community services. 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 CURRENT FUNCTIONAL STATUS:: Diana was sitting on the side of her bed when met with her. She was preparing for discharge and shared that she had received good news in that the MRI of her brain did not show any abnormalities.She will be scheduled for consultations with Opthalmology and a retina specialist at [facility] as an [place]. ADVANCE DIRECTIVES:: none on file Has patient been provided with info about the portal/API?: Yes Did the patient sign up for the portal?: No CODE STATUS:: Full Code INSURANCE COVERAGE / FINANCIAL ISSUES:: Medicare. BC BS CURRENT HOME/COMMUNITY SERVICES/EQUIPMENT:: uses a white cane PRIMARY CARE PHYSICIAN:: Bal George POTENTIAL DISCHARGE NEEDS:: follow up with PCP and plan of care PATIENT/FAMILY EDUCATION NEEDS:: Review of discharge instructions, medications, follow up plan, activity,. Ask Me Three TRANSPORTATION:: via private vehicle vs RCT PLAN:: Diana will likely be discharged home with no new services. She will follow up with her PCP as well as Opthalmology and a retina specialist at [facility] and transport with friends. CM will continue to support Diana and assess for discharge planning needs.
[2021-08-02 11:41] VITALS: BP 144/84; PULSE 78; RESP 16; TEMP 37; O2SAT 97
[2021-08-02 12:08] VITALS: BP 113/76; PULSE 78
--- NOTE | 2021-08-02 12:13 | IN_ITS ---
PT Notes Visit Reasons: Bladimir blurry vision,Rfacial/arm numbness,TIAr/o CVA Inpatient Physical Therapy Evaluation Date: 08/02/21 Referring Doctor: Dr. Hidalgo PT Orders: PT CONSULT: limited ability to ambulate Precautions: standard Patient Profile/Admitting Diagnosis: Patient admitted for management of facial paresthesias and right-sided weakness. PMHX: Anxiety Anxiety disorder Coronary artery disease Coronary artery disease Essential hypertension Fibromyalgia Fibromyalgia GERD (gastroesophageal reflux disease) History of myocardial infarction (02/03/13) HTN (hypertension) Hyperlipemia Hyperlipidemia Myocardial infarction Retinal vein occlusion of left eye Surgical History Cholecystectomy (04/16/18) H/O colonoscopy (11/06/18) 11/06/18 Dr Thomas Agrawal,[facility], hyperplastic polyp, repeat 10 years. mg History of coronary artery stent placement History of esophagogastroduodenoscopy (EGD) (11/06/18) 11/06/[address] Thomas Talbot [facility], repeat as needed. mg Social History/Home Situation: Patient lives alone in home with 1 BRUCE. She has low vision, and uses a probing cane during outdoor ambulation. Is active and independent at baseline. Practices yoga. Equipment Owned/DME: probing cane Subjective: Diana states that she noticed onset of facial tingling and right- sided weakness last night. She was unable to lift her leg on her own. She also had visual distortion in her right eye. Things today are better, but still a little off. She c/o diminished sensation in her right hand and the right side of her face, and her visual changes have persisted. Objective: General Observation: Sitting up at edge of bed at initiation of session. No lines Mental Status: A and O x3 Pain: Denies Vital Signs: Post ambulation, blood pressure 113/76, heart rate 78, SPO2 96% ROM: Right Upper Extremity: Full Left Upper Extremity: Full Right Lower Extremity: WFL Left Lower Extremity: WFL Strength: Right Upper Extremity: Shoulder flexion 4+/5. Biceps 4+/5. Triceps 4/5. Hand intrinsics 4 -/5. Left Upper Extremity: Shoulder flexion 5/5. Biceps 5/5. Triceps 4+/5. Hand intrinsics 4+/5. Right Lower Extremity: Hip flexion 4+/5. Quads 4+/5. Ankle dorsiflexion 5/5. Left Lower Extremity: Hip flexion 5/5. Quads 5/5. Ankle dorsiflexion 5/5. Sensation: Slightly diminished through the palmar aspect of the right hand Bed Mobility/Transfers: Sit?stand: Independent Stand?sit: Independent Bed to chair: Independent without assistive device Gait: Patient ambulates 150 feet with supervision, no assistive device. No antalgia or ataxia noted. During walk, patient complains of feeling off, at which point she was able to independently ambulate 50 feet back to her room. She complains of nausea. Face is symmetrical. No change in upper extremity strength. Vitals were checked (BP 113/76, heart rate 78, SaO2 96% ) and nursing alerted. Balance: Static Sitting: Normal Dynamic Sitting: Normal Static Standing: Normal Dynamic Standing: Normal 4 position balance test: 4/4. Patient able to demonstrate tree pose without difficulty. Special Tests: Mobility Limitations Standardized Measure [facility] 6 clicks Basic Mobility Inpatient Short Form: Raw Score: 24 CMS Score: 0% impairment Informed Consent/Education: Patient instructed in purpose of PT consult and pl an of care. Assessment: Patient is a 66 year old female referred to physical therapy services with the diagnosis of limited ability to ambulate. Patient presents with continued paresthesias and minor right-sided weakness, without impact on safety and gait. She is fully independent in her room, and has been taking long walks with nursing throughout the day. She was encouraged to continue with activity as she is able to tolerate, and consider outpatient PT to address any residual right-sided weakness should that persist. No further PT required in acute care setting, and patient is safe for transition back home once medically stable. She currently demonstrates the following impairment level findings: 1. Right upper extremity weakness 2. Right lower extremity weakness 3. Visual deficit Impairments are contributing to the following functional limitations: No significant functional limitations Patient is assessed as Low [id number] complexity based on the following: History: Patient is a 66-year-old female admitted after acute onset of facial paresthesias and right-sided weakness. She is able to demonstrate safe and independent mobility, and does not require further PT intervention and care setting at this time. Examination: No significant functional imitations Presentation: Evolving Decision Making: low complexity Plan of Care/Treatment Plan: DC for PT services in acute care setting DISCHARGE RECOMMENDATIONS: Home without anticipated services TREATMENT CODE/TIME: 1145?1210 (05016) Chelsea Suggs, PT, DPT [facility]
--- NOTE | 2021-08-02 13:18 | W.NEUROCONSU ---
Date of service: 08/02/21 Time of Service: 13:19 Assessment and Plan Assessment and plan (1) Blurred vision, right eye: Status: Acute (2) Paresthesia: Status: Acute (3) Migraine headache without aura: Status: Acute Assessment and plan: #1. New right eye vision changes. History of vitreous detachments bilaterally and remote CRVO on left. Recommend she be evaluated by ophthalmology. Continue aspirin 325mg daily as per them. #2. Paraesthesias and intermittent right leg apraxia. Likely secondary to atypical migraine vs fibromyalgia vs functional. MRI brain and c-spine without any acute findings. Despite demonstrating temporary apraxia on my exam, able to hold tree pose for PT. Advised she continue yoga. See tx of migraine below. #3. Episodic migraine headaches without aura. Discussed magnesium 400mg HS for migraine ppx. ADRs discussed. She will think about it. She would like to discuss with her PCP prior to starting. She is not interested in a rescue medication. She would like to follow-up in neurology as an outpatient for her headaches. History of Present Illness History of Present Illness Chief Complaint: vision loss and paraesthesias Narrative: Handedness: right. HPI: Ms. Richter is a 66 year-old woman with HTN, HLD, heart disease status post MT and stent to mid RCA in 2010, left central retinal vein occlusion, anxiety, and fibromyalgia. Yesterday a.m., Ms. Richter had been working in her garden when she began to feel not well. She describes a funny sensation. She went in around noon and noticed that objects were blurry in her right eye which was new and different from her previous vitreous detachments. Approximately 1 hour later, she describes a numb/full sensation involving her right face. Sometime after that she described altered sensation in the right arm. She says it is neither numbness or tingling, just altered. Since onset of symptoms yesterday, she has also had intermittent episodes of inability to lift her right leg up. She describes trying to get her leg to do something but it will not do it. It is not weak at other times. There is no pain. All of this, however, was associated with a mild headache. Since admission yesterday, she has had little to no improvement in the vision in her right eye. The paresthesias in her face and arm have improved. She describes a cloudy sensation in her right face. She has been restarted on aspirin 325 mg daily as per ophthalmology. She has undergone the work-up as below. She has headaches anywhere from once per week up to 3-4 times per week, more frequent with increased stress. Her headaches are associated with nausea, photophobia, phonophobia, kinesiophobia, and dizziness. She does not take anything for them. They can last anywhere from 2 hours up to 3 days. At present, she notes significant increased stress. Her sister just had to enter a intermediate. She is also legally blind. Work-up: -CTH: no acute findings. unremarkable. I reviewed these images personally and this is my personal interpretation. -CTA head/neck: unremarkable. I reviewed these images personally and this is my personal interpretation. -MRI brain: no acute findings. Mild chronic small vessel disease. Old L periventricular lacune. I reviewed these images personally and this is my personal interpretation. -MRI c-spine: exaggerated cervical curvature with no significant central canal stenosis. Mild multi-level NF narrowing complicated by motion artifiact. I reviewed these images personally and this is my personal interpretation. -TTE: pending. Consults Requesting physician: Thai Hidalgo Review of Systems All systems reviewed & are unremarkable except as noted in HPI and below PFSH Medical History Anxiety Coronary artery disease Essential hypertension Fibromyalgia GERD (gastroesophageal reflux disease) History of myocardial infarction (02/03/13) HTN (hypertension) Hyperlipidemia Myocardial infarction Retinal vein occlusion of left eye Surgical History Cholecystectomy (04/16/18) H/O colonoscopy (11/06/18) 11/06/18 LUCY Brannon, hyperplastic polyp, repeat 10 years. mg History of coronary artery stent placement History of esophagogastroduodenoscopy (EGD) (11/06/18) 11/06/18 EGD with LUCY Thomason, repeat as needed. 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 [employer] Do you feel safe at home: Yes Do you feel safe in your relationship?: Yes Visit Medication and Allergies Active Medications Generic Name Dose Route Start Last Admin Trade Name Freq PRN Reason Stop Dose Admin Acetaminophen 0 mg 08/01/21 18:37 08/01/21 22:05 Acetaminophen 325 Mg Tab PO 650 mg Q4H PRN PRN Administration Aspirin 325 mg 08/02/21 08:30 08/02/21 07:53 Aspirin 325 Mg Tab PO 325 mg DAILY CARLEEN Administration Carbamide Peroxide 0 ml 08/02/21 08:30 08/02/21 07:54 Carbamide Peroxide 15 Ml Btl AU 1 drp BID CARLEEN Administration Dimethicone/Zinc Oxide 0 gm 08/01/21 18:37 Tricia Protect Cream 142 Gm Tube TP PRN PRN Diphenhydramine HCl 25 mg 08/01/21 20:45 Diphenhydramine 25 Mg Cap PO HS PRN PRN Docusate Sodium 100 mg 08/01/21 18:37 Docusate Sodium 100 Mg Cap PO TID PRN PRN Gadoterate Meglumine 18 ml 08/02/21 09:30 08/02/21 09:22 Gadoterate Meglumine 20 Ml Vial IVP 09/01/21 23:59 18 ml DIRECTED CARLEEN Administration Hydrochlorothiazide 12.5 mg 08/02/21 08:30 08/02/21 07:53 Hydrochlorothiazide 12.5 Mg Tab PO 12.5 mg DAILY CARLEEN Administration IV Miscellaneous Supplies 1 each 08/01/21 18:30 Iv Access IV DIRECTED CARLEEN Lisinopril 20 mg 08/02/21 08:30 08/02/21 07:54 Lisinopril 20 Mg Tab PO 20 mg DAILY CARLEEN Administration Lorazepam 0.5 mg 08/01/21 18:33 08/02/21 08:17 Lorazepam 0.5 Mg Tab PO 0.5 mg Q6H PRN PRN Administration Metoprolol Succinate 25 mg 08/02/21 08:30 08/02/21 07:54 Metoprolol Cr 25 Mg Tabcr PO 25 mg DAILY CARLEEN Administration Multivitamins 1 tab 08/02/21 08:30 08/02/21 07:54 Multivitamin Tab PO 1 tab DAILY CARLEEN Administration Ondansetron HCl 4 mg 08/02/21 12:10 Ondansetron 4 Mg/2 Ml Vial IVP Q4H PRN PRN Polyethylene Glycol 17 gm 08/01/21 18:37 Polyethylene Glycol 3350 17 Gm Packet PO DAILY PRN PRN Constipation Simvastatin 5 mg 08/01/21 20:00 08/01/21 22:03 Simvastatin 10 Mg Tab PO 5 mg QPM CARLEEN Administration Sodium Chloride 0 ml 08/01/21 18:26 08/02/21 08:35 Normal Saline Flush 10 Ml Syr IVP 10 ml PRN PRN Administration Allergies shellfish derived Allergy (Severe, Verified 02/26/21 19:04) Anaphylaxsis strawberry Allergy (Severe, Verified 02/26/21 19:04) Anaphalaxsis adhesive Allergy (Intermediate, Verified 02/26/21 19:04) Skin Rash lanolin Allergy (Intermediate, Verified 02/26/21 19:04) Skin Rash benzoyl peroxide Allergy (Mild, Verified 02/26/21 19:04) Rash clobetasol Allergy (Unknown, Verified 02/26/21 19:04) aspartame Adverse Reaction (Mild, Verified 02/26/21 19:04) Visual Disturbances nitrofurantoin Adverse Reaction (Mild, Verified 02/26/21 19:04) polymyxin B Adverse Reaction (Mild, Verified 02/26/21 19:04) triamcinolone Adverse Reaction (Mild, Verified 02/26/21 19:04) wool Allergy (Severe, Uncoded 02/26/21 19:04) Hives Mushrooms Adverse Reaction (Mild, Uncoded 02/26/21 19:04) Nausea Exam Narrative Exam Narrative: Physical Exam: Gen: Patient of apparent stated age, NAD Head and face: no facial or cranial abnormalities Neck: Supple, no meningismus, no occipital tenderness CV: + S1, S2, RRR, no murmur Resp: CTA B/L Abd: soft, nontender, nondistended Ext: No edema. No clubbing or cyanosis. No bony deformity. Neuro Exam: Language: fluency, naming, repetition, and comprehension intact; Mental Status: AAOx3, current events intact, fund of knowledge intact; Speech: no dysarthria Cranial nerves: Funduscopy: not performed CN II: difficulty with finger counting in both eyes in right lower quadrant; VF intact to finger counting with both eyes open CN III, IV, : extraocular movements intact, no nystagmus, pupils symmetric and reactive to light CN V: face sensation intact to LT and PP CN VII: no facial asymmetry noted CN VIII: hearing intact bilaterally CN IX, X: palate rises symmetrically CN XI: trapezius/SCM 5/5 bilaterally CN XII: protrudes tongue symmetrically Sensory: intact to LT, PP, vibration, and joint position in all extremities Motor: bulk and tone intact. Fine motor movements intact bilaterally. No pronator drift. Strength 5/5 throughout including the deltoids, biceps, triceps, wrist extensors, hip flexors, knee flexors, knee extensors, ankle flexors, and ankle extensors. Initially noted inability/difficulty to get right leg off bed. Made numerous shaky attempts and then said she wanted to try again and then able to do so with full strength. Reflexes: 2+ at the biceps, triceps, brachioradialis, patella, and achilles tendons bilaterally; toes down going bilaterally; Coordination: FTN and HTS intact bilaterally Gait: not tested Results Last Vital Signs Temp 98.6 F 08/02/21 11:41 Pulse 78 08/02/21 12:08 Resp 16 08/02/21 11:41 BP 113/76 08/02/21 12:08 Pulse Ox 97 08/02/21 11:41 Labs Result diagrams: 08/01/21 15:05 08/02/21 06:25 Labs: Laboratory Results - last 24 hr 08/01/21 08/01/21 08/01/21 14:48 15:05 15:05 WBC 8.03 RBC 4.86 Hgb 13.6 Hct 42.0 MCV 86.4 MCH 28.0 MCHC 32.4 RDW 13.9 Plt Count 205 MPV 11.8 H Immature Gran % 0.1 Neutrophils % 74.6 Lymphocytes % 19.4 Monocytes % 5.1 Eosinophils % 0.4 Basophils % 0.4 Nucleated RBC % 0 Absolute Neutrophils 5.99 Absolute Lymphocytes 1.56 Absolute Monocytes 0.41 Absolute Eosinophils 0.03 Absolute Basophils 0.03 Sodium 140 Potassium 3.5 Chloride 101 Carbon Dioxide 29.5 Anion Gap 9.5 BUN 28 H Creatinine 1.0 Estimated GFR/1.73 m2 55.30 Glucose 107 H Calcium 9.4 Magnesium 2.2 Total Bilirubin 0.4 AST 20 ALT 26 Alkaline Phosphatase 96 Troponin I < 0.05 Total Protein 8.0 Albumin 4.2 Triglycerides Total Cholesterol LDL Cholesterol, Calc HDL Cholesterol Urine Color Yellow Urine Clarity Clear Urine pH 7.0 Ur Specific [place] 1.020 Urine Protein Negative Urine Ketones Negative Urine Blood Negative Urine Nitrite Negative Urine Bilirubin Negative Urine Urobilinogen 0.2 Ur Leukocyte Esterase Negative Urine Glucose Negative COVID-19 Source SARS-CoV-2 (PCR) 08/01/21 08/02/21 18:30 06:25 WBC RBC Hgb Hct MCV MCH MCHC RDW Plt Count MPV Immature Gran % Neutrophils % Lymphocytes % Monocytes % Eosinophils % Basophils % Nucleated RBC % Absolute Neutrophils Absolute Lymphocytes Absolute Monocytes Absolute Eosinophils Absolute Basophils Sodium 144 Potassium 3.7 Chloride 108 H Carbon Dioxide 28.9 Anion Gap 7.1 BUN 23 H Creatinine 1.0 Estimated GFR/1.73 m2 55.30 Glucose 86 Calcium 8.7 Magnesium Total Bilirubin AST ALT Alkaline Phosphatase Troponin I Total Protein Albumin Triglycerides 85 Total Cholesterol 175 LDL Cholesterol, Calc 98 HDL Cholesterol 60 Urine Color Urine Clarity Urine pH Ur Specific [place] Urine Protein Urine Ketones Urine Blood Urine Nitrite Urine Bilirubin Urine Urobilinogen Ur Leukocyte Esterase Urine Glucose COVID-19 Source Nasal/Nares SARS-CoV-2 (PCR) Negative
[2021-08-02 15:02] VITALS: PULSE 97
[2021-08-02 15:29] VITALS: BP 103/68; PULSE 68; RESP 17; TEMP 36.4; O2SAT 99
--- NOTE | 2021-08-02 15:40 | DSE_ITS ---
Date of service: 08/02/21 Time of Service: 15:40 DS: Diagnosis Discharge Diagnosis (1) Blurred vision, right eye: Status: Acute (2) Paresthesia: Status: Acute (3) Migraine headache without aura: Status: Acute Discharge Plan Disposition Patient Disposition: HOME Condition: Stable Discharge Details Reason For Visit: Bladimir blurry vision,Rfacial/arm numbness,TIAr/o CVA Admit Date/Time: 08/01/21 18:26 Admit Provider: Thai Hidalgo Attending Provider: Thai Hidalgo Primary Care Provider: Bal George Hospital Course Hospital Course: This is a 66 yo female with a PMH of CAD, HTN, HLD, fibromyalgia, anxiety, left retinal vein occlusion. She presented with c/o distorted vision in the R eye, right sided facial numbness/tingling and bilateral arm numbness/tingling R>L. Onset was at appx noon on the day of admission. CT brain, CTA neck w/o acute findings. EKG normal. Lab unremarkable. Vital signs unremarkable. ED provider spoke with [facility] neurology. They recommended MRI brain and MRI C spine with overnight telemetry monitoring. Her case was also discussed with [facility] ophthalmology; she has an appt with a retina specialist at [facility] on the following day, 08/02. Pt stated the distorted vision in the right eye; letters looking longer or shorter and objects appearing ill-shaped, was similar to her left retinal vein occlusion. Ophthalmology related that there was no indication for urgent transfer and that her evaluation by ophthalmology could wait several days or up to a week. She could be seen at [facility] ophthalmology this coming afternoon. She was seen by neurology and ruled out for an acute CVA. see full dictation, will f/u outpatient for migraines. discharged discussed with Dr Mukherjee. Home Meds and New Rx's Prescriptions: Continued lisinopril-hydrochlorothiazide [Zestoretic] 1 EACH tablet 1 tab-cap PO DAILY RF: 0 aspirin 325 MG tablet 325 mg PO DAILY RF: 0 simvastatin [Zocor] 5 MG tablet 5 mg PO HS RF: 0 Daily Multiple 1 EACH tablet 1 tab-cap PO DAILY RF: 0 lorazepam 0.5 MG tablet 0.5 mg PO PRN PRNRF: 0 metoprolol succinate 25 MG tablet extended release 24 hr 25 mg PO DAILY RF: 0 meclizine [Antivert] 25 MG tablet 25 mg PO PRN PRNRF: 0 nitroglycerin [Nitrostat] 0.4 MG tablet, sublingual 1 tab Sublingual . DIRECTED PRNRF: 0 acetaminophen [Masophen] 500 MG tablet 500 mg PO Q4H PRN PRNQty: 30 RF: 0 Discontinued prednisone 20 mg tablet See Rx Instructions .ROUTE .COMPLEX Qty: 12 RF: 0 Discharge Instructions Instructions: Blurred Vision (ED) Additional Instructions: follow up with your social media content specialist as soon as possible. [facility] ophthalmology on as scheduled. Stand Alone Forms: Nursing Discharge Form Referrals: Bal George MD [Primary Care Provider] - 08/08/21 10:00 am Activity:: Activity as Tolerated Equipment/Supplies:: No Equipment Needed Diet:: As Tolerated Discharge Orders Discharge Orders: Discharge Order (Routine); Ordered 08/02/21 Ordered By: Hayde Gorman Discharge Data Discharge Date/Time-TO BE ENTERED AT DEPARTURE: 08/02/21 18:17 DS: Summary Time Spent with Patient providing and/or coordinating discharge services: Less than 30 minutes Status at Discharge Functional status at discharge: independent ambulation Overall status at discharge: patient is not back to baseline Mental Status: mental status grossly normal Speech and Movement: speech and movement normal Mood: congruent mood Affect: anxious affect Exam Const General: cooperative, no acute distress and anxious Orientation: alert, awake and oriented x3 HENMT Head: normal to inspection Face and sinus: normal facial exam Eyes General: appearance normal, both eyes and all related structures Pupils: PERRL EOM: EOM intact bilaterally Neck Neck: normal visual inspection Chest Chest: normal inspection of the chest and no tenderness Resp Effort & Inspection: normal respiratory effort and able to speak in complete sentences Auscultation: clear to auscultation bilaterally Cardio Rate: regular rate Rhythm: regular rhythm GI Inspection: normal to inspection Palpation: soft, not firm, not rigid and nontender Auscultation: normal bowel sounds Skin General skin exam: no rashes or lesions noted Neuro General: patient alert, patient awake, patient oriented x3, moves all extremities and no focal motor deficits Cognition: normal cognition Speech: speech normal Motor: muscle tone normal throughout and strength 5/5 throughout Sensory Exam: no sensory deficits noted Extrem General: normal to inspection, full ROM, capillary refill normal, no calf tenderness bilaterally and no edema Psych Appearance: grossly normal Mental Status: mental status grossly normal Speech and Movement: speech and movement normal Mood: congruent mood Affect: anxious affect DS: Data Vitals/I&O Vitals and I&O: Vital Signs Temperature 36.4 C L 08/02/21 15:29 Temperature Source Tympanic 08/02/21 15:29 Pulse 68 08/02/21 15:29 Pulse Rhythm Regular 08/02/21 07:45 Pulse 80 08/01/21 18:37 Respiratory Rate 17 08/02/21 15:29 Respiratory Effort Non-Labored 08/02/21 07:45 Respiratory Depth Normal 08/02/21 07:45 Respiratory Pattern Normal 08/02/21 07:45 Blood Pressure 103/68 08/02/21 15:29 Blood Pressure Mean 88 08/01/21 18:37 Blood Pressure Position Supine 08/01/21 14:50 Pulse Oximetry 99 08/02/21 15:29 Oxygen Delivery Method Room Air 08/02/21 15:29 Oxygen Flow Rate 0 08/02/21 15:29 Pain Level 0 08/02/21 15:29 Comment 08/02/21 12:08 Intake & Output 08/01/21 08/02/21 08/02/21 23:59 11:59 23:59 Intake Total 1010 / 1010 800 / 1040 240 / 1040 Output Total 1500 / 1500 Balance 1010 / 1010 -700 / -460 240 / -460 Weight 90.8 kg Intake: IV 1010 / 1010 10 / 10 Oral 790 / 1030 240 / 1030 Output: Urine 1500 / 1500 Other: Urine Color Yellow Yellow Urine Appearance Clear Clear Urine Odor None Normal Voiding Methods Toilet Toilet Data Completed and Pending Labs on day of discharge: Labs from last 24 hours 08/02/21 08/01/21 08/01/21 06:25 18:30 15:05 WBC 8.03 RBC 4.86 Hgb 13.6 Hct 42.0 MCV 86.4 MCH 28.0 MCHC 32.4 RDW 13.9 Plt Count 205 MPV 11.8 H Immature Gran % 0.1 Neutrophils % 74.6 Lymphocytes % 19.4 Monocytes % 5.1 Eosinophils % 0.4 Basophils % 0.4 Nucleated RBC % 0 Absolute Neutrophils 5.99 Absolute Lymphocytes 1.56 Absolute Monocytes 0.41 Absolute Eosinophils 0.03 Absolute Basophils 0.03 Sodium 144 Potassium 3.7 Chloride 108 H Carbon Dioxide 28.9 Anion Gap 7.1 BUN 23 H Creatinine 1.0 Estimated GFR/1.73 m2 55.30 Glucose 86 Calcium 8.7 Magnesium Total Bilirubin AST ALT Alkaline Phosphatase Troponin I Total Protein Albumin Triglycerides 85 Total Cholesterol 175 LDL Cholesterol, Calc 98 HDL Cholesterol 60 COVID-19 Source Nasal/Nares SARS-CoV-2 (PCR) Negative 08/01/21 15:05 WBC RBC Hgb Hct MCV MCH MCHC RDW Plt Count MPV Immature Gran % Neutrophils % Lymphocytes % Monocytes % Eosinophils % Basophils % Nucleated RBC % Absolute Neutrophils Absolute Lymphocytes Absolute Monocytes Absolute Eosinophils Absolute Basophils Sodium 140 Potassium 3.5 Chloride 101 Carbon Dioxide 29.5 Anion Gap 9.5 BUN 28 H Creatinine 1.0 Estimated GFR/1.73 m2 55.30 Glucose 107 H Calcium 9.4 Magnesium 2.2 Total Bilirubin 0.4 AST 20 ALT 26 Alkaline Phosphatase 96 Troponin I < 0.05 Total Protein 8.0 Albumin 4.2 Triglycerides Total Cholesterol LDL Cholesterol, Calc HDL Cholesterol COVID-19 Source SARS-CoV-2 (PCR) [facility] Medical History Anxiety Coronary artery disease Essential hypertension Fibromyalgia GERD (gastroesophageal reflux disease) History of myocardial infarction (02/03/13) HTN (hypertension) Hyperlipidemia Myocardial infarction Retinal vein occlusion of left eye Surgical History Cholecystectomy (04/16/18) H/O colonoscopy (11/06/18) 11/06/18 LUCY Brannon, hyperplastic polyp, repeat 10 years. mg History of coronary artery stent placement History of esophagogastroduodenoscopy (EGD) (11/06/18) 11/06/18 EGD with LUCY Thomason, repeat as needed. 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
--- NOTE | 2021-08-02 16:52 | CHAPLAIN ---
Diana and I know each other from previous admissions. She said she is here today because a vision issue with her good eye. She is blind in her left eye. The clinical staff requested an MRI and echo. Diana said she immediately when to the worst case scenario thinking she had a stroke or tia, and maybe be come blind in her right eye as well, and she would not longer be able to do her own paper work and finances and she does not want to be a burden to her two sons, one in [place], [place] and one in [place], [place]. When suggested she not get ahead of herself, Diana said she knows that she always has to panic first, and then calm down. She later found out that the MRI and echo showed nothing. Diana lives by herself in a home in [facility], after her 's a few years ago. She enjoys gardening and keeps in touch with a few friends, and her sons. 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
--- NOTE | 2021-08-02 17:31 | CMDISCH_ITS ---
- If Service Date Differs Date of service: 08/02/21 Time of Service: 17:31 LACE Index Scoring Tool - Questions: Length of Stay (in days): 1 Acuity (Admit via E.D.?): Yes Comorbidities: Previous M.I. E.D. Visits: 3 - Answers: Total Score: 8 Risk of Readmission: Low Risk Care Management Discharge Reason for Hospitalization: Paresthrsia Discharge Plan: Diana will be discharged home with no new services. She will follow up with her PCP as well as Opthalmology and [place] [facility] and transport with friends vs [facility]. Patient/Family Education Needs: Review of discharge instructions, medications, follow up plan, activity,. Ask Me Three
== END 2021-08-02 18:17 | disposition home or self-care (01) ==
LOC: ER 18:44 → MS 19:31
PROVIDERS: Admitting Provider Family Medicine; Emergency Provider Physician Assistant; PCP Internal Medicine; Visit Provider Family Medicine
DX: G43.009 Migraine without aura, not intractable, without status migrainosus (principal); R20.2 Paresthesia of skin; H53.8 Other visual disturbances; H53.19 Other subjective visual disturbances; H34.8122 Central retinal vein occlusion, left eye, stable; I10 Essential (primary) hypertension; E78.5 Hyperlipidemia, unspecified; F41.9 Anxiety disorder, unspecified; I25.10 Atherosclerotic heart disease of native coronary artery without angina pectoris; M79.7 Fibromyalgia; K21.9 Gastro-esophageal reflux disease without esophagitis; I25.2 Old myocardial infarction; Z95.5 Presence of coronary angioplasty implant and graft; Z20.822 Contact with and (suspected) exposure to COVID-19; R48.2 Apraxia
CPT/HCPCS: 36415; 36416; 70496; 70498; 70553; 80048; 80053; 80061; 82962; 87635; 93005; 96360; 97161; 99215; 99285; 71046; 72141; 81003; 83735; 84484; 85025; 93010; 93306; 99217; 99220; G0378; J3490

== ENCOUNTER → 2021-08-02 07:49 | Outpatient (BNVA) | payer MEDICARE, BC, SELFPAY | PROVIDERS: PCP Internal Medicine; Referring Provider Internal Medicine; Visit Provider Psychiatry & Neurology Neurology | DX: R69 Illness, unspecified (principal) ==

== ENCOUNTER 2022-04-11 18:01 | Emergency (ER) | payer MEDICARE, BC, SELFPAY ==
[2022-04-11] VITALS (10 sets, daily range): BP systolic 106–147; BP diastolic 58–94; PULSE 69–84; RESP 20; TEMP 36.6–37.1; O2SAT 95–100
--- NOTE | 2022-04-11 18:00 | W.ED.GENAD ---
Discharge Plan Disposition Patient Disposition: HOME Condition: Stable Discharge Details Clinical Impression: Neck pain, Head injury, Right wrist pain Primary Care Provider: Bal George ED Provider: Ariel Baker Home Meds and New Rx's Prescriptions: Continued lisinopril-hydrochlorothiazide [Zestoretic] 1 EACH tablet 1 tab-cap PO DAILY simvastatin [Zocor] 5 MG tablet 5 mg PO HS Daily Multiple 1 EACH tablet 1 tab-cap PO DAILY lorazepam 0.5 MG tablet 0.5 mg PO PRN PRN metoprolol succinate 25 MG tablet extended release 24 hr 25 mg PO DAILY Label Comments: meclizine [Antivert] 25 MG tablet 25 mg PO PRN PRN nitroglycerin [Nitrostat] 0.4 MG tablet, sublingual 1 tab Sublingual . DIRECTED PRN Rx Instructions: 02/09/19 never has used acetaminophen [Masophen] 500 MG tablet 500 mg PO Q4H PRN PRNQty: 30 0RF aspirin 81 mg Tablet,Delayed Release (Dr/Ec) 81 mg PO DAILY Discharge Instructions Instructions: Wrist Injury (ED), Head Injury (ED), Neck Pain (ED) Additional Instructions: CT imaging of head and neck as well as your x-ray of your wrist are all unremarkable for obvious emergent injury. Wear soft c-collar and wrist brace as needed, advance activity as tolerated. Cool and/or warm compresses every 2 hours for 20 minutes. [id number] Tylenol as directed for discomfort. Gentle stretching as tolerated. Please watch for new or worsening symptoms and return to the ER for any concerns. Lastly, contact your primary care provider tomorrow to discuss your ER visit and need for outpatient reevaluation Medical Decision Making This is a 67-year-old female, not anticoagulated, who was walking her neighbors dog who weighs approximately 60 pounds, the dog darted in a different direction and she was pulled to the ground, falling, striking her face. She is unsure whether there may have been a brief LOC. Reports a mild global headache, diffuse moderate posterior neck pain, and right wrist pain. She reports being asymptomatic prior to the fall. Clinically she appears well, nontoxic. She was placed in a c-collar by EMS. Plan is to obtain CT imaging of head and C-spine as well as an x-ray of her right wrist Right wrist and CT imaging of head and C-spine were all unremarkable for emergent process per radiology. C-collar removed. Discussed options with patient. She would like a soft c-collar as well as a wrist splint, both were applied. Tylenol offered but declined. Patient has no additional questions or concerns and is comfortable discharge in her current condition. Upon discharge she ambulated steadily. Patient remains neurologically intact. Standard discharge and return precautions were provided. Patient understands, is agreeable to this plan, and has no additional questions or concerns upon discharge. This documentation was generated using [employer] system, please disregard any oddities of phrase or misspellings. Medical Records Medical records reviewed: Yes I reviewed the patient's medical records. Imaging Data Radiologic Study: Attestation: I personally reviewed and interpreted this imaging study as follows: Imaging: CT Scan Radiologist's impression: PROCEDURE INFORMATION: Exam: CT Head Without Contrast Exam date and time: 04/11/2022 6:28 PM Age: 67 years old Clinical indication: Other: Fall, pain TECHNIQUE: Imaging protocol: Computed tomography of the head without contrast. COMPARISON: MR BRAIN WO/W 08/02/2021 9:12 AM FINDINGS: Brain: Mild bilateral white matter hypodensities which are nonspecific but most commonly associated with chronic microvascular ischemia in this age group. The IACs are grossly normal. No extra-axial fluid collections. No evidence of acute intracranial hemorrhage. No CT evidence of large territory acute or subacute intracranial ischemia/infarct. No intracranial mass lesions. No midline shift or herniation. Cerebral ventricles: Mild compensatory ventriculomegaly secondary to central atrophy. Pituitary gland and sella: The sella is grossly normal. Paranasal sinuses: Visualized paranasal sinuses are clear. Mastoid air cells: Visualized mastoid air cells are clear. Orbital cavities: Visualized orbital contents demonstrate no acute abnormality. Prior bilateral ocular lens extraction. Bones/joints: The calvarium and visualized facial bones are intact. Hyperostosis frontalis interna incidentally noted. Soft tissues: The scalp and visualized soft tissues demonstrate no acute abnormality. Vasculature: Mild calcific atherosclerosis. No asymmetric vascular hyperdensities suggestive of thrombosis are identified. Other findings: Mild generalized atrophy. Graham-white differentiation is well maintained.1. No acute intracranial process. No intracranial hemorrhage or mass effect. 2. Atrophy and chronic microvascular changes consistent with age. PROCEDURE INFORMATION: Exam: CT Cervical Spine Without Contrast Exam date and time: 04/11/2022 6:28 PM Age: 67 years old Clinical indication: Other: Fall, pain TECHNIQUE: Imaging protocol: Computed tomography of the cervical spine without contrast. COMPARISON: MR CERVICAL SPINE WO 08/02/2021 8:52 AM FINDINGS: Bones/joints: Osteopenia. Craniocervical alignment is normal. The odontoid is intact. No fractures. Slight degenerative anterolisthesis of 1-2 mm at C7-T1 and T1-T2. Alignment otherwise normal. No blastic or lytic lesions. Discs/Spinal canal/Neural foramina: The occipital condyles are intact. Mild-moderate degenerative sclerosis and spurring at the atlantodens interval. No jumped or perched facets. Minor disc space narrowing C5-C6 with mild-moderate marginal spurring. Mild-moderate spurring at other lower cervical/upper thoracic levels. No compressive soft disc protrusion or extrusion is evident by CT. Mild canal stenosis C5-C6. Mild right foraminal stenosis C5-C6. Lungs: Visualized pulmonary apices are clear. Thyroid: The visualized thyroid gland is unremarkable. Soft tissues: Paraspinous soft tissues are unremarkable without significant soft tissue swelling or soft tissue hematoma. IMPRESSION: 1. No evidence of fracture or acute traumatic subluxation. 2. Osteopenia and degenerative changes detailed above, with mild canal stenosis and mild right foraminal stenosis at C5-C6. Thank you for allowing us to participate in the care of your patient. Radiologic Study #2: Attestation: I personally reviewed and interpreted this imaging study as follows: Imaging: X-Ray Radiologist's impression: PROCEDURE INFORMATION: Exam: XR Right Wrist Exam date and time: 04/11/2022 18:42 Age: 67 years old Clinical indication: Injury or trauma; Fall; Sprain or strain; Wrist; Right; Injury date: 04/11/22 TECHNIQUE: Imaging protocol: Radiologic exam of the Right wrist. Views: 3 or more views. COMPARISON: No relevant prior studies available. FINDINGS: Bones/joints: The bones are demineralized. No acute fracture or subluxation. Minimal scattered chronic degenerative changes. Soft tissues: Unremarkable. IMPRESSION: No acute bony pathology. HPI General Mode of arrival: EMS. Date/Time Provider Initiated Documentation: 04/11/22 18:15. Limitations to Documentation: no limitations. Information obtained by: patient and EMS. History of Present Illness 67 year old F presents to the emergency department with the chief complaint of Fall, head/neck pain, R wrist pain, described as moderate, with intensity rated at 6. Quality is described as aching, and is localized to the head, neck, right and upper extremity. Patient reports no radiation. Patient started experiencing this minute(s) (45) and it has been constant. Immobilization improves symptom(s), Movement worsens symptoms . Patient notes no other symptoms.. Patient did receive the following treatments prior to arrival, other (C-collar) Related Data Home Medications Medication Instructions Recorded Confirmed lisinopril 20 1 tab-cap PO DAILY 02/03/13 04/11/22 mg-hydrochlorothiazide 12.5 mg tablet (Zestoretic) multivitamin-ferrous 1 tab-cap PO DAILY 02/03/13 04/11/22 fumarate-folic acid 18 mg-400 mcg tablet (Daily Multiple) simvastatin 5 mg tablet (Zocor) 5 mg PO HS 02/03/13 04/11/22 lorazepam 0.5 mg tablet 0.5 mg PO PRN PRN 02/17/13 04/11/22 metoprolol succinate 25 mg 25 mg PO DAILY 02/17/13 04/11/22 tablet,extended release 24 hr meclizine 25 mg tablet (Antivert) 25 mg PO PRN PRN 05/21/15 04/11/22 nitroglycerin 0.4 mg sublingual 1 tab sublingual . DIRECTED PRN 04/09/18 04/11/22 tablet (Nitrostat) acetaminophen 500 mg tablet 500 mg PO Q4H PRN PRN ##30 04/18/18 04/11/22 (Masophen) aspirin 81 mg tablet,delayed 81 mg PO DAILY 04/11/22 04/11/22 release Previous Rx's Medication Instructions Recorded acetaminophen 500 mg tablet 500 mg PO Q4H PRN PRN ##30 04/18/18 (Masophen) Allergies Allergy/AdvReac Type Severity Reaction Status Date / Time shellfish derived Allergy Severe Anaphylaxsi Verified 04/11/22 18:07 s strawberry Allergy Severe Anaphalaxsi Verified 04/11/22 18:07 s adhesive Allergy Intermediate Skin Rash Verified 04/11/22 18:07 lanolin Allergy Intermediate Skin Rash Verified 04/11/22 18:07 benzoyl peroxide Allergy Mild Rash Verified 04/11/22 18:07 clobetasol Allergy Unknown Verified 04/11/22 18:07 aspartame AdvReac Mild Visual Verified 04/11/22 18:07 Disturbances nitrofurantoin AdvReac Mild Verified 04/11/22 18:07 polymyxin B AdvReac Mild Verified 04/11/22 18:07 triamcinolone AdvReac Mild Verified 04/11/22 18:07 wool Allergy Severe Hives Uncoded 04/11/22 18:07 Mushrooms AdvReac Mild Nausea Uncoded 04/11/22 18:07 General ILIA: 3 Review of Systems Constitutional Constitutional: Denies fever(s), Reports headache(s) and Denies weakness Eyes Eyes: Reports blurry vision (Baseline, legally blind) and Denies change in vision ENT Ears, Nose, Mouth, and Throat: Reports headache(s) and Reports neck pain Cardiovascular Cardiovascular: Denies chest pain and Denies dyspnea Respiratory Respiratory: Denies cough and Denies dyspnea Gastrointestinal Gastrointestinal: Denies abdominal pain, Denies nausea and Denies vomiting Musculoskeletal Musculoskeletal: Reports neck pain, Denies numbness and Denies tingling Integumentary/Breasts Skin/Breast: Denies rash Neurologic Neurologic: Reports headache(s), Denies numbness, Denies tingling and Denies weakness Hematologic/Lymphatic Hematologic/Lymphatic: Denies easy bleeding and Denies easy bruising PFSH All Active Problems Neck pain (Acute) Head injury (Acute) Right wrist pain (Acute) Migraine headache without aura (Acute) Paresthesia (Acute) Visual distortion (Acute) Paresthesia (Acute) Dyspnea (Acute) Allergic reaction (Acute) TIA (transient ischemic attack) (Acute) Blurred vision, right eye (Acute) Right facial numbness (Acute) Paresthesia of left arm (Acute) Paresthesia of right arm (Acute) Fatigue (Acute) DVT prophylaxis (Acute) History of myocardial infarction (Chronic 02/03/13) Fibromyalgia (Chronic) Retinal vein occlusion of left eye (Chronic) Anxiety disorder (Chronic) Essential hypertension (Chronic) Hyperlipidemia (Chronic) Coronary artery disease (Chronic) Medical History Anxiety GERD (gastroesophageal reflux disease) HTN (hypertension) Myocardial infarction Surgical History Cholecystectomy (04/16/18) H/O colonoscopy (11/06/18[facility] 10 years. mg History of coronary artery stent placement History of esophagogastroduodenoscopy (EGD) (11/06/18) 11/06/18 EGD with LUCY Thomason, repeat as needed. 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 Abrasion, mild discomfort Mouth: moist mucous membranes Teeth and gingiva: dentition normal Eyes General: appearance normal, both eyes and all related structures Conjunctivae: conjunctivae normal Neck Neck: normal visual inspection, trachea midline, supple, tender (Diffuse posterior) and other (C-collar in place) Resp Effort & Inspection: normal respiratory effort and able to speak in complete sentences Auscultation: clear to auscultation bilaterally Cardio Rate: regular rate Rhythm: regular rhythm GI Palpation: soft, not firm, no guarding, no pulsatile masses and nontender Auscultation: normal bowel sounds Back/Spine/Pelvis Back: no CVA tenderness and No back tenderness Skin General skin exam: no rashes or lesions noted Neuro General: patient alert, patient awake, moves all extremities and no focal motor deficits Cognition: normal cognition Speech: speech normal Motor: muscle tone normal throughout, strength 5/5 throughout, no movement abnormalities noted and no fasciculations Sensory Exam: no sensory deficits noted Extrem General: normal to inspection, full ROM and capillary refill normal Other: Right wrist with diffuse mild discomfort. There is no swelling, erythema, ecchymosis. Neuro, vascular, tendon intact. Psych Appearance: grossly normal Mental Status: mental status grossly normal
--- NOTE | 2022-04-11 18:15 | DI.CT_ITS ---
Exam(s) CT HEAD CERVICAL SPINE WO EXAM: CT HEAD CERVICAL SPINE WO CLINICAL HISTORY: fall, pain. TECHNIQUE: Imaging Protocol: Axial computed tomography images with coronal and sagittal reformatted images were created and reviewed COMPARISON: CT CT BRAIN NECK CTA from 08/01/2021 FINDINGS: CT Head: Ventricles and Extra axial spaces: Normal in size and morphology for the patient's age. Hemorrhage: None. Cerebral parenchyma: There are areas of decreased attenuation in the white matter most consistent wit h small vessel ischemic disease. No acute territorial infarct is present. Midline shift: None. Brainstem/Cerebellum: Normal. Calvarium: Normal. Visualized Paranasal sinuses/Mastoids: Clear. Soft Tissues: Unremarkable. CT Cervical Spine: Bones: No acute fracture or subluxation. Degenerative changes are seen in the spine. Soft Tissues: Unremarkable. Lung Apices: Clear. IMPRESSION: 1. No acute intracranial process. 2. No acute fracture or subluxation in the cervical spine. RADIATION DOSE DELIVERED: 1,729.64mGy.cm Total DLP DATA REPOSITORY: All CT scans at this facility are submitted to the National Radiology Data Registry (NRDR) Dose Index Registry (DIR) with the [employer] (A[employer]). RADIATION OPTIMIZATION: All CT scans at this facility use at least one of these dose optimization te chniques: automated exposure control; mA and/or kV adjustment per patient size (includes targeted exa ms where dose is matched to clinical indication); or iterative reconstruction.
--- NOTE | 2022-04-11 18:15 | DI.RAD_ITS ---
Exam(s) XR WRIST RT COMPLETE EXAM: XR WRIST RT COMPLETE CLINICAL HISTORY: fall/pain. TECHNIQUE: 2D digital imaging was performed of the right wrist. Three views were obtained. Scaphoid , PA, lateral and oblique views were obtained. COMPARISON: No exams were available for comparison FINDINGS: BONES: No acute fracture is present. No bony destructive lesion is seen. JOINTS: The carpal bones are normally aligned. SOFT TISSUE: Normal. IMPRESSION: Unremarkable radiographs of the right wrist. DATA REPOSITORY: RADIATION DOSE DELIVERED:
--- NOTE | 2022-04-11 18:55 | DI.VRAD_ITS ---
PROCEDURE INFORMATION: Exam: CT Head Without Contrast Exam date and time: 04/11/2022 6:28 PM Age: 67 years old Clinical indication: Other: Fall, pain TECHNIQUE: Imaging protocol: Computed tomography of the head without contrast. COMPARISON: MR BRAIN WO/W 08/02/2021 9:12 AM FINDINGS: Brain: Mild bilateral white matter hypodensities which are nonspecific but most commonly associated with chronic microvascular ischemia in this age group. The IACs are grossly normal. No extra-axial fluid collections. No evidence of acute intracranial hemorrhage. No CT evidence of large territory acute or subacute intracranial ischemia/infarct. No intracranial mass lesions. No midline shift or herniation. Cerebral ventricles: Mild compensatory ventriculomegaly secondary to central atrophy. Pituitary gland and sella: The sella is grossly normal. Paranasal sinuses: Visualized paranasal sinuses are clear. Mastoid air cells: Visualized mastoid air cells are clear. Orbital cavities: Visualized orbital contents demonstrate no acute abnormality. Prior bilateral ocular lens extraction. Bones/joints: The calvarium and visualized facial bones are intact. Hyperostosis frontalis interna incidentally noted. Soft tissues: The scalp and visualized soft tissues demonstrate no acute abnormality. Vasculature: Mild calcific atherosclerosis. No asymmetric vascular hyperdensities suggestive of thrombosis are identified. Other findings: Mild generalized atrophy. Graham-white differentiation is well maintained. IMPRESSION: 1. No acute intracranial process. No intracranial hemorrhage or mass effect. 2. Atrophy and chronic microvascular changes consistent with age. PROCEDURE INFORMATION: Exam: CT Cervical Spine Without Contrast Exam date and time: 04/11/2022 6:28 PM Age: 67 years old Clinical indication: Other: Fall, pain TECHNIQUE: Imaging protocol: Computed tomography of the cervical spine without contrast. COMPARISON: MR CERVICAL SPINE WO 08/02/2021 8:52 AM FINDINGS: Bones/joints: Osteopenia. Craniocervical alignment is normal. The odontoid is intact. No fractures. Slight degenerative anterolisthesis of 1-2 mm at C7-T1 and T1-T2. Alignment otherwise normal. No blastic or lytic lesions. Discs/Spinal canal/Neural foramina: The occipital condyles are intact. Mild-moderate degenerative sclerosis and spurring at the atlantodens interval. No jumped or perched facets. Minor disc space narrowing C5-C6 with mild-moderate marginal spurring. Mild-moderate spurring at other lower cervical/upper thoracic levels. No compressive soft disc protrusion or extrusion is evident by CT. Mild canal stenosis C5-C6. Mild right foraminal stenosis C5-C6. Lungs: Visualized pulmonary apices are clear. Thyroid: The visualized thyroid gland is unremarkable. Soft tissues: Paraspinous soft tissues are unremarkable without significant soft tissue swelling or soft tissue hematoma. IMPRESSION: 1. No evidence of fracture or acute traumatic subluxation. 2. Osteopenia and degenerative changes detailed above, with mild canal stenosis and mild right foraminal stenosis at C5-C6. Dictated and Authenticated by: Tony Dodge MD. Ordering:LILIA George MD
--- NOTE | 2022-04-11 19:08 | DI.VRAD_ITS ---
PROCEDURE INFORMATION: Exam: XR Right Wrist Exam date and time: 04/11/2022 18:42 Age: 67 years old Clinical indication: Injury or trauma; Fall; Sprain or strain; Wrist; Right; Injury date: 04/11/22 TECHNIQUE: Imaging protocol: Radiologic exam of the Right wrist. Views: 3 or more views. COMPARISON: No relevant prior studies available. FINDINGS: Bones/joints: The bones are demineralized. No acute fracture or subluxation. Minimal scattered chronic degenerative changes. Soft tissues: Unremarkable. IMPRESSION: No acute bony pathology. Dictated and Authenticated by: Sarah Logan MD. Ordering:LILIA George MD
== END 2022-04-11 20:01 | disposition home or self-care (01) ==
LOC: ER 20:35
PROVIDERS: Emergency Provider Physician Assistant; PCP Internal Medicine
DX: S00.211A Abrasion of right eyelid and periocular area, initial encounter (principal); M54.2 Cervicalgia; M25.531 Pain in right wrist; I10 Essential (primary) hypertension; W18.30XA Fall on same level, unspecified, initial encounter; W22.8XXA Striking against or struck by other objects, initial encounter; Y93.K1 Activity, walking an animal
CPT/HCPCS: 29125; 99284; 70450; 72125; 73110; 99282

== ENCOUNTER 2022-04-17 04:01 | Emergency (ER) | payer MEDICARE, BC, SELFPAY ==
[2022-04-17 04:10] VITALS: BP 153/55; PULSE 69; RESP 16; TEMP 37; O2SAT 100
[2022-04-17] MEDS: Meclizine 25 MG TAB PO (04:24)
--- NOTE | 2022-04-17 04:39 | W.ED.GENAD ---
Discharge Plan Disposition Patient Disposition: HOME Condition: Good Discharge Details Clinical Impression: Peripheral vertigo Primary Care Provider: Bal George ED Provider: Edwin Nath Home Meds and New Rx's Prescriptions: Continued lisinopril-hydrochlorothiazide [Zestoretic] 1 EACH tablet 1 tab-cap PO DAILY simvastatin [Zocor] 5 MG tablet 5 mg PO HS Daily Multiple 1 EACH tablet 1 tab-cap PO DAILY lorazepam 0.5 MG tablet 0.5 mg PO PRN PRN metoprolol succinate 25 MG tablet extended release 24 hr 25 mg PO DAILY Label Comments: meclizine [Antivert] 25 MG tablet 25 mg PO PRN PRN nitroglycerin [Nitrostat] 0.4 MG tablet, sublingual 1 tab Sublingual . DIRECTED PRN Rx Instructions: 02/09/19 never has used acetaminophen [Masophen] 500 MG tablet 500 mg PO Q4H PRN PRNQty: 30 0RF aspirin 81 mg Tablet,Delayed Release (Dr/Ec) 81 mg PO DAILY Discharge Instructions Additional Instructions: At this time your dizziness and other symptoms have notably improved. I suspect you still have a mild concussion from your initial fall, and some peripheral vertigo secondary to that as well. Please take your meclizine every 6-8 hours as needed for dizziness. Stay well-hydrated and avoid any trauma to your head. If you notice any worsening of your symptoms, or any new symptoms such as vomiting, diarrhea, fever, chills, shortness of breath, chest pain, numbness, weakness, or fainting , please return immediately to the emergency department for reevaluation. Please follow up with your primary care provider as soon as possible for reassessment and reevaluation. As always, it was a pleasure participating in your medical care today. Referrals: Bal George MD [Primary Care Provider] - Medical Decision Making 67 yo female with hx of CAD s/p Stent to her mid RCA in 2010, HTN, dyslipidemia, depression, anxiety, fibromyalgia, history of vertigo, and obesity who presents today for evaluation of dizziness. Patient was walking her dog on 04/11/2022, when the dog pulled her she fell and hit her face. She came to the ER for evaluation, CT scan of the head and C-spine was done, these were negative for acute process. Since then she has had a mild headache, and dizziness, and the dizziness was much more notable today. She has a slight increase in her chronic double vision. 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 She states that her symptoms of dizziness are made worse when she turns her head to the right. But also when she turns her head back. She admits to nausea but no vomiting. She denies any diarrhea, numbness, tingling, or weakness otherwise. No other complaints at this time. No other modifying factors. Physical exam demonstrates a positive head impulse test bilaterally which notably worsens her symptoms. She demonstrates no other focal neurologic deficits otherwise. No evidence of cerebellar infarct clinically. Negative test of skew. Symptoms appear consistent with mild concussion and subsequent mild vertigo. I did discuss repeat imaging, the patient was notably hesitant about this and did not want any repeat imaging at this time. We will give meclizine, monitor closely and reassess. Symptoms are notably clinically inconsistent with brain bleed especially with her negative CT scan. 5:50 AM On reassessment after meclizine patient is feeling much better. She feels well, her dizziness is completely resolved, she is able to ambulate well, and should like to go home. She shows no evidence of double vision, persistent vertigo or neurologic deficit. No focal neurologic deficits at this time. No indication for emergent neuroimaging at this time. Symptoms consistent with peripheral vertigo and mild residual concussion. Discussed red flags for which to return. I have extensively reviewed the treatment plan and discharge instructions with the patient. I have addressed all patient concerns at this time. The patient was made aware of what symptoms to monitor for that would warrant a return to the emergency department. Discussed the plan with the patient, they demonstrate verbal understanding and agreement with our assessment and plan at this time. The documentation in this chart was dictated using [employer] dictation software. Please excuse any dictation errors. HPI General Date/Time Provider Initiated Documentation: 04/17/22 04:05. HPI Narrative: 67 yo female with hx of CAD s/p Stent to her mid RCA in 2010, HTN, dyslipidemia, depression, anxiety, fibromyalgia, history of vertigo, and obesity who presents today for evaluation of dizziness. Patient was walking her dog on 04/11/2022, when the dog pulled her she fell and hit her face. She came to the ER for evaluation, CT scan of the head and C-spine was done, these were negative for acute process. Since then she has had a mild headache, and dizziness, and the dizziness was much more notable today. She has a slight increase in her chronic double vision. 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 She states that her symptoms of dizziness are made worse when she turns her head to the right. But also when she turns her head back. She admits to nausea but no vomiting. She denies any diarrhea, numbness, tingling, or weakness otherwise. No other complaints at this time. No other modifying factors. Related Data Home Medications Medication Instructions Recorded Confirmed lisinopril 20 1 tab-cap PO DAILY 02/03/13 04/17/22 mg-hydrochlorothiazide 12.5 mg tablet (Zestoretic) multivitamin-ferrous 1 tab-cap PO DAILY 02/03/13 04/17/22 fumarate-folic acid 18 mg-400 mcg tablet (Daily Multiple) simvastatin 5 mg tablet (Zocor) 5 mg PO HS 02/03/13 04/17/22 lorazepam 0.5 mg tablet 0.5 mg PO PRN PRN 02/17/13 04/17/22 metoprolol succinate 25 mg 25 mg PO DAILY 02/17/13 04/17/22 tablet,extended release 24 hr meclizine 25 mg tablet (Antivert) 25 mg PO PRN PRN 05/21/15 04/17/22 nitroglycerin 0.4 mg sublingual 1 tab sublingual . DIRECTED PRN 04/09/18 04/11/22 tablet (Nitrostat) acetaminophen 500 mg tablet 500 mg PO Q4H PRN PRN ##30 04/18/18 04/17/22 (Masophen) aspirin 81 mg tablet,delayed 81 mg PO DAILY 04/11/22 04/17/22 release Previous Rx's Medication Instructions Recorded acetaminophen 500 mg tablet 500 mg PO Q4H PRN PRN ##30 04/18/18 (Masophen) Allergies Allergy/AdvReac Type Severity Reaction Status Date / Time shellfish derived Allergy Severe Anaphylaxsi Verified 04/17/22 04:15 s strawberry Allergy Severe Anaphalaxsi Verified 04/17/22 04:15 s adhesive Allergy Intermediate Skin Rash Verified 04/17/22 04:15 lanolin Allergy Intermediate Skin Rash Verified 04/17/22 04:15 benzoyl peroxide Allergy Mild Rash Verified 04/17/22 04:15 clobetasol Allergy Unknown Verified 04/17/22 04:15 aspartame AdvReac Mild Visual Verified 04/17/22 04:15 Disturbances nitrofurantoin AdvReac Mild Verified 04/17/22 04:15 polymyxin B AdvReac Mild Verified 04/17/22 04:15 triamcinolone AdvReac Mild Verified 04/17/22 04:15 wool Allergy Severe Hives Uncoded 04/17/22 04:15 Mushrooms AdvReac Mild Nausea Uncoded 04/17/22 04:15 General Stated Complaint: HeadInjury ILIA: 3 Review of Systems All systems reviewed & are unremarkable except as noted in HPI and below PFSH All Active Problems (Updated 04/17/22 @ 05:44 by Edwin Nath DO) Neck pain (Acute) Head injury (Acute) Right wrist pain (Acute) Peripheral vertigo (Acute) Migraine headache without aura (Acute) Paresthesia (Acute) Visual distortion (Acute) Paresthesia (Acute) Dyspnea (Acute) Allergic reaction (Acute) TIA (transient ischemic attack) (Acute) Blurred vision, right eye (Acute) Right facial numbness (Acute) Paresthesia of left arm (Acute) Paresthesia of right arm (Acute) Fatigue (Acute) DVT prophylaxis (Acute) History of myocardial infarction (Chronic 02/03/13) Fibromyalgia (Chronic) Retinal vein occlusion of left eye (Chronic) Anxiety disorder (Chronic) Essential hypertension (Chronic) Hyperlipidemia (Chronic) Coronary artery disease (Chronic) Medical History Anxiety GERD (gastroesophageal reflux disease) HTN (hypertension) Myocardial infarction Surgical History Cholecystectomy (04/16/18) H/O colonoscopy (11/06/18) 11/06/18 LUCY Brannon, hyperplastic polyp, repeat 10 years. mg History of coronary artery stent placement History of esophagogastroduodenoscopy (EGD) (11/06/18) 11/06/18 EGD with LUCY Thomason, repeat as needed. 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 3.ENT: Atraumatic external nose and ears. Moist MM. Neck: Symmetric, trachea midline, No thyromegaly. 4.CVS: +S1/S2, No murmurs or gallops. Peripheral pulses 2+ and equal in all extremities. Brisk capillary refill in all extremities. 5.RESP: Unlabored respiratory effort. Clear to auscultation bilaterally. No wheezes rales or rhonchi 6.GI: Soft, Nontender/Nondistended, No hepatosplenomegaly. No guarding or rebound. 7.MSK: Normocephalic/Atraumatic, Extremities w/o deformity or ttp No cyanosis or clubbing, Normal movement of all extremities 8.Skin: Warm, Dry. No rashes or lesions. 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 Sensation grossly intact, no focal neurologic deficits. All 6 cardinal planes of vision are fully intact. No evidence of rotatory or vertical nystagmus. The patient demonstrated a normal qobqmb-[id number]-sevqnp, good dexterity. There was no evidence of dysdiadochokinesia. Patient was able to ambulate without difficulty but did need to ambulate slowly. There was no wide-based gait. Ougb-mr-bgit testing was normal. Sensation was intact bilaterally as well as muscle strength bilaterally for all extremities. Patient was able to verbalize butter cup with no slurring, or miss pronunciation. Fast movement of the head to the left or the right exacerbated her symptoms and made the patient notably dizzy. 10.Psych: (AAO) x3. Appropriate mood and affect Course Vital Signs Vital signs: Vital Signs Temperature 37.0 C 04/17/22 04:10 Pulse 69 04/17/22 04:10 Respiratory Rate 16 04/17/22 04:10 Blood Pressure 153/55 H 04/17/22 04:10 Pulse Oximetry 100 04/17/22 04:10 Temperature 37.0 C 04/17/22 04:10 Temperature Source Skin 04/17/22 04:10 Pulse 69 04/17/22 04:10 Respiratory Rate 16 04/17/22 04:10 Respiratory Effort Non-Labored 04/17/22 04:13 Respiratory Depth Normal 04/17/22 04:13 Respiratory Pattern Normal 04/17/22 04:13 Blood Pressure 153/55 H 04/17/22 04:10 Blood Pressure Position Sitting 04/17/22 04:10 Pulse Oximetry 100 04/17/22 04:10 Oxygen Delivery Method Room Air 04/17/22 04:10 Oxygen Flow Rate 0 04/17/22 04:10
== END 2022-04-17 06:06 | disposition home or self-care (01) ==
PROVIDERS: Emergency Provider Student in an Organized Health Care Education/Training Program; PCP Internal Medicine
DX: H81.391 Other peripheral vertigo, right ear (principal); S09.8XXD Other specified injuries of head, subsequent encounter; W18.39XD Other fall on same level, subsequent encounter; R11.0 Nausea
CPT/HCPCS: 99283

== ENCOUNTER 2022-12-06 07:00 | Emergency (ER) | payer MEDICARE, BC, SELFPAY ==
[2022-12-06] VITALS (35 sets, daily range): BP systolic 93–156; BP diastolic 51–71; PULSE 56–90; RESP 7–23; TEMP 37.2; O2SAT 95–99
--- NOTE | 2022-12-06 07:00 | RT.EKG_ITS ---
APPROVED REPORT Exam: Resting ECG Reason for Exam: chest pain Patient Location: E HR:86 bpm ECG Measurements Heart Rate 86 AXIS AK [id number] P [id number] QRSd 73 QRS -25 QT 394 T -6 QTc 472 Conclusion Atrial fibrillation...V-rate 84- 89, irreg A-activity Inferior infarct, old...Q >35mS, II III aVF Physician: Sinus, no stemi, minimal lateral depression but no new elevation or depression compared to prior ekg from 08/01/21
--- NOTE | 2022-12-06 07:14 | ED.GENADUL_ITS ---
Discharge Plan Discharge Details Chief Complaint: Chest Pain Clinical Impression: Chest pain Primary Care Provider: Bal George ED Provider: Edwin Nath Home Meds and New Rx's Prescriptions: No Action lisinopril-hydrochlorothiazide [Zestoretic] 1 EACH tablet 1 tab-cap PO QAM simvastatin [Zocor] 5 MG tablet 5 mg PO HS Daily Multiple 1 EACH tablet 1 tab-cap PO QAM aspirin 81 mg tablet,delayed release (DR/EC) 81 mg PO QAM metoprolol succinate 25 MG tablet extended release 24 hr 25 mg PO QAM Patient Comments: acetaminophen [Masophen] 500 MG tablet 500 mg PO Q4H PRN PRNQty: 30 0RF Medical Decision Making 67-year-old female with a past medical history of coronary artery disease with 1 stent which was placed greater than 10 years ago, hypertension, high cholesterol, who presents today for evaluation of mild chest pain. Patient states that over the past week or 2 she has felt more fatigued and winded with activity. Then yesterday she felt notably tired and weak from the waist down. This morning she developed mild chest pain which she described as a 4 out of 10, she also felt sweaty and weak and slightly short of breath. She states that the symptoms were very similar to her previous heart attack. She denies any vomiting or diarrhea. EMS was called, she was given a nitroglycerin and it brought her pain down from a 4 to a 2. She was given 4 baby aspirin. Patient has no other complaints at this time. No other modifying factors. Physical exam demonstrates a well-appearing female, no acute distress. Vital signs stable aside from mild hypertension. She has not yet taken her morning medications. Differential includes ACS, PE, pneumonia. Symptoms appear inconsistent with stroke. EKG shows sinus rhythm, no STEMI. We will evaluate for these concerning etiologies, monitor closely and reassess. Patient will be signed out to my colleague for follow-up on labs and imaging. HPI General Date/Time Provider Initiated Documentation: 12/06/22 07:02 . HPI Narrative: 67-year-old female with a past medical history of coronary artery disease with 1 stent which was placed greater than 10 years ago, hypertension, high cholesterol, who presents today for evaluation of mild chest pain. Patient states that over the past week or 2 she has felt more fatigued and winded with activity. Then yesterday she felt notably tired and weak from the waist down. This morning she developed mild chest pain which she described as a 4 out of 10, she also felt sweaty and weak and slightly short of breath. She states that the symptoms were very similar to her previous heart attack. She denies any vo miting or diarrhea. EMS was called, she was given a nitroglycerin and it brought her pain down from a 4 to a 2. She was given 4 baby aspirin. Patient has no other complaints at this time. No other modifying factors. Related Data Home Medications Medication Instructions Recorded Confirmed lisinopril 20 1 tab-cap PO QA 02/03/13 12/06/22 mg-hydrochlorothiazide 12.5 mg tablet (Zestoretic) multivitamin-ferrous 1 tab-cap PO [facility] 02/03/13 12/06/22 fumarate-folic acid 18 mg-400 mcg tablet (Daily Multiple) simvastatin 5 mg tablet (Zocor) 5 mg PO 02/03/13 12/06/22 metoprolol succinate 25 mg 25 mg PO [facility] 02/17/13 12/06/22 tablet,extended release 24 hr acetaminophen 500 mg tablet 500 mg PO Q4H PRN PRN #30 tabs 04/18/18 12/06/22 (Masophen) aspirin 81 mg tablet,delayed 81 mg PO [facility] 05/22/22 12/06/22 release Previous Rx's Medication Instructions Recorded acetaminophen 500 mg tablet 500 mg PO Q4H PRN PRN #30 tabs 04/18/18 (Masophen) Allergies Allergy/AdvReac Type Severity Reaction Status Date / Time shellfish derived Allergy Severe Anaphylaxsi Verified 12/06/22 07:18 s strawberry Allergy Severe Anaphalaxsi Verified 12/06/22 07:18 s adhesive Allergy Intermediate Skin Rash Verified 12/06/22 07:18 lanolin Allergy Intermediate Skin Rash Verified 12/06/22 07:18 benzoyl peroxide Allergy Mild Rash Verified 12/06/22 07:18 clobetasol Allergy Unknown Verified 12/06/22 07:18 rice Allergy Verified 12/06/22 07:18 aspartame AdvReac Mild Visual Verified 12/06/22 07:18 Disturbances nitrofurantoin AdvReac Mild Verified 12/06/22 07:18 polymyxin B AdvReac Mild Verified 12/06/22 07:18 triamcinolone AdvReac Mild Verified 12/06/22 07:18 wool Allergy Severe Hives Uncoded 12/06/22 07:18 Mushrooms AdvReac Mild Nausea Uncoded 12/06/22 07:18 General Stated Complaint: Chest Pain ILIA: 3 Review of Systems All systems reviewed & are unremarkable except as noted in HPI and below PFSH All Active Problems (Updated 12/06/22 @ 07:22 by Edwin Nath DO) Chest pain (Acute) Abnormal auditory perception of right ear (Acute) Impacted cerumen of both ears (Acute) Migraine headache without aura (Acute) Paresthesia (Acute) Visual distortion (Acute) Paresthesia (Acute) Dyspnea (Acute) Allergic reaction (Acute) TIA (transient ischemic attack) (Acute) Blurred vision, right eye (Acute) Right facial numbness (Acute) Paresthesia of left arm (Acute) Paresthesia of right arm (Acute) Fatigue (Acute) DVT prophylaxis (Acute) History of myocardial infarction (Chronic 02/03/13) Fibromyalgia (Chronic) Retinal vein occlusion of left eye (Chronic) Anxiety disorder (Chronic) Essential hypertension (Chronic) Hyperlipidemia (Chronic) Coronary artery disease (Chronic) Medical History Anxiety Bladder disorder Ceruminosis Concussion Food allergy GERD (gastroesophageal reflux disease) H/O central retinal vein occlusion HTN (hypertension) Insomnia Knee pain, right Myocardial infarction Obesity Prediabetes Thyroid nodule Visual impairment Surgical History Cholecystectomy (04/16/18) H/O colon[facility] (11/06/18[facility] 10 [facility]. mg History of coronary artery stent placement History of esophagogastroduodenoscopy (EGD) (11/06/18) 11/06/18 EGD with LUCY Thomason, repeat as needed. 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 3.ENT: Atraumatic external nose and ears. Moist MM. Neck: Symmetric, trachea midline, No thyromegaly. 4.CVS: +S1/S2, No murmurs or gallops. Peripheral pulses 2+ and equal in all extremities. Brisk capillary refill in all extremities. 5.RESP: Unlabored respiratory effort. Clear to auscultation bilaterally. No wheezes rales or rhonchi 6.GI: Soft, Nontender/Nondistended, No hepatosplenomegaly. No guarding or rebound. 7.MSK: Normocephalic/Atraumatic, Extremities w/o deformity or ttp No cyanosis or clubbing, Normal movement of all extremities 8.Skin: Warm, Dry. No rashes or lesions. 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 Sensation grossly intact, no focal neurologic deficits. 10.Psych: (AAO) x3. Appropriate mood and affect Course Vital Signs Vital signs: Vital Signs Temperature 37.2 C 12/06/22 07:06 Pulse 88 12/06/22 07:06 Respiratory Rate 18 12/06/22 07:06 Blood Pressure 156/71 H 12/06/22 07:06 Pulse Oximetry 96 12/06/22 07:06 Temperature 37.2 C 12/06/22 07:06 Temperature Source Temporal Artery Scan 12/06/22 07:06 Pulse 88 12/06/22 07:06 Respiratory Rate 18 12/06/22 07:06 Blood Pressure 156/71 H 12/06/22 07:06 Pulse Oximetry 96 12/06/22 07:06 Oxygen Delivery Method Room Air 12/06/22 07:06 Oxygen Flow Rate 0 12/06/22 07:06
[2022-12-06 07:23] LABS: Abs Immature Grans 0.02 10^3/uL (0.0-0.06); Absolute Basophil Count 0.05 10^3/uL (0.0-0.2); Absolute Eosinophil Count 0.11 10^3/uL (0.0-0.7); Absolute Lymphocyte Count 2.12 10^3/uL (1.2-3.4); Absolute Monocyte Count 0.42 10^3/uL (0.1-0.8); Absolute Neutrophil Count 4.24 10^3/uL (1.2-6.7); Basophils % 0.7; Eosinophils % 1.6; HCT 41.2 % (36.0-46.0); HGB 13.6 g/dL (11.2-15.7); Immature Grans % 0.3; Lymphocytes % 30.5; MCH 29.5 pg (27.0-33.0); MCV 89 fL (80-95); MPV 11.9 fL (8.0-11.0); Neutrophils % 60.9; Platelet Count 193 10^3/uL (130-400); RBC 4.61 10^6/uL (3.93-5.22); WBC 6.96 10^3/uL (4.4-10.8)
[2022-12-06 07:39] LABS: ALT 26 U/L (14-59); AST 32 U/L (15-37); Albumin 3.8 g/dL (3.4-5.0); Alkaline Phosphatase 96 U/L (46-116); Anion Gap 9.6 mmol/L (3-11); BUN 24 mg/dL (7-18); Bilirubin, Total 0.3 mg/dL (0.2-1.0); CO2 28.4 mmol/L (21.0-32.0); Chloride 104 mmol/L (98-107); Estimated GFR 61.36 (mL/min/1.73m2); Glucose 111 mg/dL (74-106); Magnesium 2.2 mg/dL (1.8-2.4); Potassium 4.2 mmol/L (3.5-5.1); Sodium 142 mmol/L (136-145); Total Protein 7.6 g/dL (6.4-8.2); Troponin I < 50 ng/L (<or=60)
[2022-12-06] MEDS: Lisinopril 20 MG TAB PO (07:56)
[2022-12-06] MEDS: Metoprolol CR 25 MG TABCR PO (07:56)
[2022-12-06] MEDS: hydroCHLOROthiazide 12.5 MG TAB PO (07:56)
[2022-12-06 07:57] LABS: PTT Activated 25.6 sec (21.5-31.9); Prothrombin Time 9.8 sec (9.3-11.0)
[2022-12-06 08:11] LABS: D-Dimer 408 ng/mlFEU (<500)
--- NOTE | 2022-12-06 08:36 | ED.PROG_ITS ---
Date of service: 12/06/22 Time of Service: 08:36 Medical Decision Making labs unremarkable including d dimer, patient currently asymptomatic. She states she had an episode of a few minutes yesterday where her legs felt heavy and she had diaphoresis, none since and states this was similar to when she had an NC y ears ago. Will obtain delta troponin. pt asymptomatic, delta troponin negative. Discussed with her and given no continuing symptoms and reassuring workup feel she is safe for d/c, she will f/u with her pcp, return precautions given Sign Out Sign Out Data: Sign Out Comment: Chest pain since this morning, history of cardiac stent. Follow-up on labs and D-dimer Last updated by Edwin Nath DO at 12/06/22 07:34 Discharge Plan Disposition Patient Disposition: Home Condition: Stable Discharge Details Clinical Impression: Chest pain, Fatigue Primary Care Provider: Bal George ED Provider: Gamal Pate Home Meds and New Rx's Prescriptions: Continued lisinopril-hydrochlorothiazide [Zestoretic] 1 EACH tablet 1 tab-cap PO QAM simvastatin [Zocor] 5 MG tablet 5 mg PO HS Daily Multiple 1 EACH tablet 1 tab-cap PO QAM aspirin 81 mg tablet,delayed release (DR/EC) 81 mg PO QAM metoprolol succinate 25 MG tablet extended release 24 hr 25 mg PO QAM Patient Comments: acetaminophen [Masophen] 500 MG tablet 500 mg PO Q4H PRN PRNQty: 30 0RF Discharge Instructions Instructions: Fatigue (ED) Additional Instructions: Your blood work and ekg's did not show concerning findings at this time follow up with your primary care provider within 1 week if you feel more ill, have severe worsening pain or difficulty breathing return to the emergency department
--- NOTE | 2022-12-06 09:26 | NUR.NOTE ---
pt provided with breakfast tray Nursing Note:
[2022-12-06 10:47] LABS: Troponin I < 50 ng/L (<or=60)
== END 2022-12-06 12:48 | disposition home or self-care (01) ==
PROVIDERS: Student in an Organized Health Care Education/Training Program; Emergency Provider Emergency Medicine; PCP Internal Medicine
DX: R07.9 Chest pain, unspecified (principal); I10 Essential (primary) hypertension; E78.00 Pure hypercholesterolemia, unspecified; I25.2 Old myocardial infarction; I25.10 Atherosclerotic heart disease of native coronary artery without angina pectoris; Z95.5 Presence of coronary angioplasty implant and graft; R06.02 Shortness of breath; R53.83 Other fatigue
CPT/HCPCS: 36415; 80053; 93005; 99283; 83735; 84484; 85025; 85379; 85610; 85730; 93010; 99284

== ENCOUNTER 2023-01-22 08:41 | Outpatient (CLI) | payer MEDICARE, BC, SELFPAY ==
--- NOTE | 2023-01-22 08:45 | RT.EKG_ITS ---
APPROVED REPORT Exam: Resting ECG Reason for Exam: afib Patient Location: O HR:77 bpm ECG Measurements Heart Rate 77 AXIS OR 145 P 51 QRSd 90 QRS -30 QT 380 T 4 QTc 431 Conclusion Sinus rhythm...normal P axis, V-rate 50- 99 Possible inferior infarct, old...Q >35mS, II III aVF Low voltage
== END 2023-01-22 08:42 | disposition home or self-care (01) ==
PROVIDERS: PCP Internal Medicine; Referring Provider Internal Medicine; Visit Provider Internal Medicine Cardiovascular Disease
DX: R93.89 Abnormal findings on diagnostic imaging of other specified body structures (principal); I25.10 Atherosclerotic heart disease of native coronary artery without angina pectoris
CPT/HCPCS: 93010

== ENCOUNTER → 2023-01-22 08:41 | Outpatient (BNVA) | payer MEDICARE, BC, SELFPAY | PROVIDERS: PCP Internal Medicine; Referring Provider Internal Medicine; Visit Provider Internal Medicine Cardiovascular Disease | DX: I25.10 Atherosclerotic heart disease of native coronary artery without angina pectoris (principal); Z95.5 Presence of coronary angioplasty implant and graft; I10 Essential (primary) hypertension | CPT/HCPCS: 93005; 99214 ==